=== PATIENT | female | born 1960 | race Caucasian/White ===

== ENCOUNTER 2017-04-14 13:07 | Emergency (ER) | payer OTHER ==
[~2017-04-14] VITALS: Ht 154.9 cm; Wt 47.7 kg
[2017-04-14 13:11] VITALS: TEMP 37.3; Ht 154.9 cm; Wt 47.7 kg
[2017-04-14] MEDS ORDERED: KETOROLAC TROMETHAMINE 30 MG/ML VIAL IV STA (13:57)
[2017-04-14] MEDS ORDERED: OMEP40CA41 PO (14:17)
[2017-04-14] MEDS ORDERED: METO50TA16 PO (14:17)
--- NOTE | 2017-04-14 14:53 | DIAGNOSTIC IMAGING REPORT ---
PELVIS/UNILATERAL HIP 2-3VIEWS CLINICAL HISTORY: 56 years-old Female presenting with Fall, rt HIP PAIN/CONTUSION. TECHNIQUE: Single frontal view of the pelvis and frontal and frog-leg lateral views the right hip were obtained. COMPARISON: None. FINDINGS: Bony pelvis intact. Symphysis and sacroiliac joints intact. Bilateral hip joints congruent. Specifically, no fracture of the right femoral neck. No subluxation. No degenerative change. Lower lumbar spine grossly normal. IMPRESSION: No acute osseous injury of the pelvis or right hip. Electronically signed by: Elias Perry M.D. 04/14/2017 2:51 PM Dictated Date/Time: 04/14/2017 2:50 PM
[2017-04-14] MEDS ORDERED: OXYCODONE IR HOME PACK PO STA (15:07)
[2017-04-14] MEDS ORDERED: OXYC1TAB3 PO (15:10)
--- NOTE | 2017-04-14 15:14 | EMERGENCY ROOM VISIT NOTE ---
ED Visit Note First contact with patient: 13:45 CHIEF COMPLAINT: "I'm in pain" HISTORY OF PRESENT ILLNESS: This 56-year-old female patient presents to the emergency department via ambulance complaining of pain in the right groin and right hip. The patient states on Friday, she slipped and fell on the ice. She states she did a split, and stretched the right groin. She states she then landed on the right hip. She describes the sensation in the right groin as "like a pulled muscle". She has been taking 400 mg of ibuprofen every 4-6 hours when having pain, but nothing consistently. The patient states she has been unable to ambulate, and her boyfriend has been carrying her to the bathroom. Early this morning, her pain began significantly worsening, and she felt that she needed to be seen in the emergency department. The patient discussed the pain now is the same as it has been for the past 3 days. She states the pain is intermittent, worse with moving. She describes it as a cramping sensation and rates that 8/10. The patient denies any prior hip fractures or injuries. She states that there are spasms in the muscle of her groin, and suspects that she tore the muscle in her right groin. The patient denies any head injury, loss of consciousness, confusion, dizziness, decreased sensation, paresthesias, back pain, urinary disturbances, or other associated symptoms. REVIEW OF SYSTEMS: A 10 system review of systems was performed with positives and pertinent negatives listed in the history of present illness. All other systems were reviewed and are negative. ALLERGIES: Penicillin MEDICATIONS: Metoprolol, omeprazole, albuterol, Symbicort PMH: Asthma, hypertension SOCIAL HISTORY: The patient lives locally with family. She admits to smoking one pack of cigarettes per day. She denies drug or alcohol use. PHYSICAL EXAM: VITALS: Vitals are noted on the nurse's note and reviewed by myself. Vital signs stable. GENERAL: This is a 56-year-old white female, in no acute distress, nondiaphoretic, well-developed well-nourished. SKIN: The skin was without rashes, erythema, edema, or bruising. There is no tenting of the skin. Capillary reflex less than 2 seconds. HEAD: Normocephalic atraumatic. EARS: External auditory canals clear, tympanic membranes pearly buck without erythema or effusion bilaterally. EYES: Pupils equal round and reactive to light and accommodation. Conjunctivae without injection, sclerae without icterus. Extraocular movements intact. NOSE: Patent, turbinates without inflammation or discharge. No sinus tenderness. MOUTH: Mucous membranes moist. Tonsils are not enlarged. Pharynx without erythema or exudate. Uvula midline. Airway patent. Tongue does not deviate. NECK: Supple without nuchal rigidity. No lymphadenopathy. No thyromegaly. Cervical spine is nontender. No JVD. HEART: Regular rate and rhythm without murmurs gallops or rubs. LUNGS: Wheezing noted in all lung dong. The patient does have a cough, which she states is chronic. No rales or rhonchi. No dullness to percussion. No retractions or accessory muscle use. ABDOMEN: Positive bowel sounds x 4. Normal tympanic percussion. Soft, nontender, without masses or organomegaly. Rosa sign negative. No guarding or rebound tenderness. MUSCULOSKELETAL: No muscle atrophy, erythema, or edema noted. The patient has significantly limited range of motion at the right hip. She is unable to externally rotate at the hip due to significant discomfort. She does some palpation of the hip, and a contusion overlying this joint. She has very severe tenderness in the right groin. There is no contusion or bruising noted in this area. Full range of motion without joint tenderness in all other extremities. No tenderness to palpation. Normal gait. Strength 5/5 throughout. NEURO: Patient was alert and oriented to person place and time. Normal sensation to light and sharp touch. Deep tendon reflexes 2+ throughout. No focal neurological deficits. RADIOLOGY: PELVIS/UNILATERAL HIP 2-3VIEWS CLINICAL HISTORY: 56 years-old Female presenting with Fall, rt HIP PAIN/CONTUSION. TECHNIQUE: Single frontal view of the pelvis and frontal and frog-leg lateral views the right hip were obtained. COMPARISON: None. FINDINGS: Bony pelvis intact. Symphysis and sacroiliac joints intact. Bilateral hip joints congruent. Specifically, no fracture of the right femoral neck. No subluxation. No degenerative change. Lower lumbar spine grossly normal. IMPRESSION: No acute osseous injury of the pelvis or right hip. Electronically signed by: Elias Perry M.D. 04/14/2017 2:51 PM Dictated Date/Time: 04/14/2017 2:50 PM EMERGENCY DEPARTMENT COURSE: The patient was seen and evaluated as above. An IV was established as the patient was in severe pain. She was given 30 mg Toradol IV and did note mild improvement in her symptoms. X-ray of the pelvis and unilateral right hip was performed and did not reveal any acute fractures or bony abnormalities. I had a discussion with the patient regarding pain management and assistance to help her get around her house. She states she feels that she will be able to ambulate with the assistance of crutches. She performed a trial in the emergency department, but was unsuccessful with ambulation did not feel comfortable avoiding all weight bearing on the right lower extremity. The patient states her boyfriend has been carrying her to the bathroom and anywhere she needs to go while in the house, and she feels comfortable continuing this practice until she is able to follow up with orthopedics. I did discuss this with the patient, and advised her that it is not ideal. I did offer her admission or possible placement at a rehabilitation facility. The patient declines, and states she would rather go home. The patient was provided with a home pack and prescription for pain medication. She did request a prescription for a muscle relaxer, so was given a home pack and prescription for Flexeril. She was encouraged to return the emergency Department for worsening symptoms. I did advise her to follow up with orthopedics this week for recheck and further evaluation of her symptoms. Discharge instructions reviewed, and the patient was discharged home in good condition. I attest that I have personally reviewed the patient's current medication list. Blood Pressure Screening: Patient was found to have a slightly elevated blood pressure due to circumstances. I do not believe that the patient requires hypertension monitoring. DIFFERENTIAL DIAGNOSIS: Hip fracture, pelvic fracture, contusion, sprain, strain , muscle or ligament tear, DVT, and others DIAGNOSIS: Right hip contusion, inguinal strain Current/Historical Medications Scheduled Cyclobenzaprine Hcl (Flexeril), 10 MG PO TID Metoprolol Tartrate (Lopressor) (Lopressor), 50 MG PO BID Omeprazole (Prilosec), 40 MG PO DAILY Scheduled PRN Oxycodone Ir (Roxicodone Ir), 1 TAB PO Q4-6H PRN for Pain Allergies Coded Allergies: Penicillins (Unverified Allergy, Unknown, ., 04/14/17) Vital Signs Date Time Temp Pulse Resp B/P (MAP) Pulse Ox O2 Delivery O2 Flow Rate FiO2 04/14/17 16:36 90 22 153/80 96 Room Air 04/14/17 14:37 97 18 142/90 96 Room Air 04/14/17 13:11 37.3 95 20 164/90 96 Room Air Medications Administered Medications (Trade) Dose Ordered Sig/Shellie Route Start Time Stop Time Status Last Admin Dose Admin Ketorolac Tromethamine (Toradol Inj) 30 mg NOW STAT IV 04/14/17 13:57 04/14/17 13:58 DC 04/14/17 14:13 30 MG Oxycodone HCl (Roxicodone Immediate Rel 5MG Home Pack) 1 homepack UD STAT PO 04/14/17 15:07 04/14/17 15:10 DC 04/14/17 16:34 1 HOMEPACK Cyclobenzaprine HCl (FLEXERIL 10MG Home Pack) 1 homepack UD ONCE PO 04/14/17 16:45 04/14/17 16:46 DC 04/14/17 16:34 1 HOMEPACK Departure Information Impression Primary Impression: Fall Additional Impressions: Strain of right inguinal muscle Contusion of right hip Dispostion Home / Self-Care Condition GOOD Prescriptions Cyclobenzaprine Hcl (FLEXERIL) 10 Mg Tab 10 MG PO TID, #15 TAB Prov: Denise Clifton PA-C 04/14/17 Oxycodone Ir (Roxicodone Ir) 5 Mg Tab 1 TAB PO Q4-6H Y for Pain, #6 TAB For Initial Treatment Prov: Denise Clifton PA-C 04/14/17 Referrals No Doctor, Assigned (PCP) Patient Instructions ED Contusion Hip, ED Strain Groin, My [facility] Additional Instructions You were seen in the emergency department today for right hip and groin pain. X -ray did not reveal any acute fracture. Oxycodone (OxyIR) 5mg: Take 1-2 pills every four hours as needed for breakthrough pain. Avoid alcohol, operating machinery or dangerous equipment, working on ladders or roofs, DRIVING, or situations where being under the influence may be dangerous. It is recommended to use an gjil-asm-yzplrok stool softener such as Colace, 100mg twice daily while taking this medication to avoid constipation. This medication is ONLY to be used for pain which is not controlled with OTC pain medication. Ibuprofen(Motrin, Advil) may be used for fever or pain. Use 600mg every six hours as needed. Take with food. Avoid using more than 2400mg in a 24 hour period. Do not use 2400mg per day for more than three consecutive days without physician direction. Prolonged inappropriate use can lead to stomach upset or ulcers. (AND/OR) Acetaminophen(Tylenol) may be used for fever or pain. Use 1000mg every six hours as needed. Avoid using more than 3000mg in a 24 hour period. You were given Flexeril to help with muscle spasms. Please take this medication as prescribed and do not exceed 30mg daily. Do not drive or operate any machinery while taking this medication, as it may make you sleepy. Ice compresses for 20 minutes at a time four times daily for 2-3 days. Use the crutches as instructed to avoid weight-bearing. You may begin bearing weight as tolerated. Rest and elevate your injury. Return to the ER immediately for any numbness, tingling, severe pain, extreme swelling in the extremity or as needed. Call [facility], [phone], tomorrow to arrange follow up for your injury in 1-2 days. Follow-up with your primary care physician in 2 to 3 days for a recheck of your current condition. Problem Qualifiers Primary Impression: Fall Encounter type: initial encounter Qualified Codes: W19.XXXA - Unspecified fall, initial encounter Additional Impressions: Strain of right inguinal muscle Encounter type: initial encounter Qualified Codes: S39.013A - Strain of muscle, fascia and tendon of pelvis, initial encounter Contusion of right hip Encounter type: initial encounter Qualified Codes: S70.01XA - Contusion of right hip, initial encounter
[2017-04-14] MEDS ORDERED: CYCL10TA6 PO (16:33)
[2017-04-14 16:36] VITALS: BP 153/80; PULSE 90; O2SAT 96
[2017-04-14] MEDS ORDERED: FLEXERIL HOME PACK 10 MG VIAL PO ONE (16:45)
== END 2017-04-14 16:54 | disposition home or self-care (01) ==
LOC: C.EDC 13:10
DX: S39.013A Strain of muscle, fascia and tendon of pelvis, initial encounter (principal); S70.01XA Contusion of right hip, initial encounter; W00.0XXA Fall on same level due to ice and snow, initial encounter

== ENCOUNTER 2021-08-19 21:47 | Observation (INO) ==
[2021-08-19] MEDS ORDERED: SODIUM CHLORIDE 0.9% 1000ML 250 ML IV ONE (22:16)
[2021-08-19] MEDS ORDERED: methylPREDNISolone 125 MG/2 ML VIAL IV STA (22:20)
[2021-08-19] MEDS ORDERED: ALBUT/IPRATROP 3MG/0.5MG NEB 3 ML VIAL NEB ONE (22:20)
[2021-08-19 22:31] LABS: Basophils # (auto) 0.02 K/uL (0-0.2); Basophils % (auto) 0.1 %; Eosinophils # (auto) 0.18 K/uL (0-0.5); Eosinophils % (auto) 1.3 %; Hematocrit (blood only) 46.8 % (37-47); Hemoglobin 15.8 g/dL (12.0-16.0); Immature Granulocytes # (auto) 0.09 K/uL (0.00-0.02); Immature Granulocytes % (auto) 0.6 %; Lymphocytes # (auto) 0.95 K/uL (1.2-3.4); Lymphocytes % (auto) 6.7 %; Mean Corpuscular Hgb Conc 33.8 g/dL (32-36); Mean Corpuscular Volume 94.7 fL (80-100); Mean Platelet Volume 9.4 fL (7.4-10.4); Monocytes % (auto) 5.6 %; Neutrophils # (auto) 12.18 K/uL (1.4-6.5); Neutrophils % (auto) 85.7 %; Platelet Count 307 K/uL (130-400); RDW Coefficient of Variation 12.6 % (11.5-14.5); RDW Standard Deviation 43.6 fL (36.4-46.3); Red Blood Count 4.94 M/uL (4.2-5.4); White Blood Count 14.22 K/uL (4.8-10.8)
[2021-08-19 22:36] LABS: iSTAT Creatinine 1.3 mg/dl (0.6-1.3); iSTAT Hemoglobin 16.3 g/dl (12.0-16.0); iSTAT Ionized Calcium 1.16 mmol/l (1.12-1.32); iSTAT Potassium 4.1 mmol/L (3.3-5.0)
[2021-08-19 22:39] LABS: iSTAT Arterial Blood Gas HCO3 21 meg/L (19-24); iSTAT Arterial Blood Gas pCO2 42 mmHg (35-46); iSTAT Arterial Blood Gas pO2 66 mmHg (80-95); iSTAT Carbon Dioxide 22 mmol/L (24-31)
[2021-08-19] MEDS ORDERED: OPTIRAY 320 125ml IV ONE (22:41)
[2021-08-19 22:42] LABS: Partial Thromboplastin Ratio 0.9; Partial Thromboplastin Time 23.7 Seconds (21.0-31.0); Prothrombin Time 10.3 Seconds (9.0-12.0)
[2021-08-19 22:45] LABS: Alanine Aminotransferase 26 U/L (7-52); Albumin Globulin Ratio 1.7 (0.9-2); Albumin Level 4.4 gm/dl (3.4-5.0); Alkaline Phosphatase 116 U/L (34-104); Anion Gap 13 (3-11); Aspartate Aminotransferase 55 U/L (13-39); BUN Creatinine Ratio 9.6 (10-20); Bilirubin,Total 0.5 mg/dl (0.2-1.0); Blood Urea Nitrogen 12 mg/dl (6-23); Calcium 8.9 mg/dl (8.5-10.1); Carbon Dioxide 20 mmol/L (21-32); Chloride 102 mmol/L (98-107); Est GFR (African American) 54.9 ml/min; Est GFR (Non-African American) 47.4 ml/min; Globulin 2.6 gm/dl (2.5-4.0); Glucose 201 mg/dl (70-99(Fasting)); Magnesium 1.7 mg/dl (1.7-2.4); Potassium 4.2 mmol/L (3.5-5.1); Sodium 135 mmol/L (136-145)
[2021-08-19 22:46] LABS: Troponin I High Sensitivity 6.4 pg/ml (0-14)
[2021-08-19] MEDS: SODIUM CHLORIDE 0.9% 1000ML 1,000 ML IV SCH (23:15)
[2021-08-20] MEDS ORDERED: ONDANSETRON INJ 2 MG/ML 2 ML VIAL IV STA ×2 (00:18→00:24)
[2021-08-20] MEDS ORDERED: HYDROmorphone INJ 0.5 MG/0.5 ML SYR IV STA (00:24)
--- NOTE | 2021-08-20 02:05 | History & Physical Report ---
Date of Service August 20, 2021 Assessment & Plan (1) Loss of consciousness for less than 30 minutes: Plan: Unclear as to what exactly happened with her loss of consciousness. She did undergo chest compressions by her , who reported that she had completely blacked out and was not responsive. He did not check a pulse before beginning CPR so unclear if she had a cardiopulmonary arrest, a pulmonary arrest, or became unresponsive due to some other event including unknown drug exposure She was out walking in the [place] the previous day, so we will check a Lyme test The patient will be admitted to telemetry for serial cardiac enzymes, serial EKG's, cardiac rhythm monitoring and a 2-D echocardiogram with Dopplers. (2) Respiratory arrest: Plan: Respiratory arrest/COPD- As above, unclear the exact process that took place prior to her arrival Continue Symbicort and as needed Duonebs every 4 hours while awake and every 2 hours when necessary. Add Pulmicort Respules 0.5 mg inhaled twice daily (3) COPD (chronic obstructive pulmonary disease): Plan: See above (4) Hypertension: Plan: Continue metoprolol 50 mg p.o. twice daily with hold parameters (5) Tobacco use disorder: Plan: Patient reports approximately 1 pack/day of cigarettes x40 years Also has daily use of marijuana by smoking Cessation counseling We will check a urine drug screen in the event that there was exposure to some unknown other drug element that may contribute to her symptoms (6) Alcohol abuse: Plan: Averages 4 beers daily during the week, and increases to 6-7 beers daily on the weekend Placed on AWSS protocol She reports having 1 beer today the day of her symptoms (7) Hypomagnesemia: Plan: Magnesium 1.7 upon admission Give magnesium sulfate 2 g IV Patient does have mildly prolonged QT interval on EKG, however, possible but unlikely episode torsades as cause of syncope (8) Hyperglycemia: Plan: Glucose 201 upon admission, with no history of diabetes mellitus Place on Accu-Cheks before meals and at bedtime with NovoLog coverage per scale Check hemoglobin A1c (9) Marijuana use, continuous: (10) Dehydration: Plan: Continue IV fluid rehydration (11) GERD (gastroesophageal reflux disease): Plan: Continue omeprazole/pantoprazole History of Present Illness Chief Complaint: The patient presents to the emergency department after an episode of loss of consciousness, preceded by loss of bladder control, and had chest compressions performed by her prior to calling 911 Primary Care Provider: Janeth Nette The patient is a 60-year-old female with a past medical history including COPD, hypertension, GERD, tobacco use disorder, daily alcohol use, daily marijuana use who presents to the emergency department as noted above. The patient reports that the morning before, she had gone for a walk, including outside in the [place], and did fine with that, later on in the afternoon that day, Friday, she became fatigued, but did become more energetic Friday evening. Yesterday morning, Friday, when she awoke she would report that she was tired, remained tired today. She also developed shortness of breath, has a chronic cough, and reportedly was sitting on her chair when she became aware that she was losing bladder control, and way down to the floor, and lost consciousness, at which time her began CPR. She reportedly did come to at home, and was brought to the ED for assessment of a respiratory arrest. Allergies Allergy/AdvReac Type Severity Reaction Status Date / Time Penicillins Allergy Unknown . Unverified 08/19/21 22:34 Home Medications Medication Instructions Recorded Confirmed Type budesonide-formoterol HFA 160 2 puff INHALATION BID 08/19/21 08/19/21 History mcg-4.5 mcg/actuation aerosol inhaler (Symbicort) glycopyrrolate 9 mcg-formoterol 2 puff INHALATION DAILY 08/19/21 08/19/21 History 4.8 mcg HFA aerosol inhaler (Bevespi Aerosphere) ipratropium 0.5 mg-albuterol 3 mg 3 ml INHALATION QID PRN 08/19/21 08/19/21 History (2.5 mg base)/3 mL nebulization soln metoprolol tartrate 50 mg tablet 50 mg PO BID 08/19/21 08/19/21 History omeprazole 40 mg capsule,delayed 40 mg PO DAILY 08/19/21 08/19/21 History release Past Med/Surg History Medical History (Updated 08/20/21 @ 03:02 by Yuan Escamilla MD) Alcohol abuse COPD (chronic obstructive pulmonary disease) GERD (gastroesophageal reflux disease) Hypertension Marijuana use, continuous Tobacco use disorder Social History Smoking Status: Current every day smoker Tobacco Type: Cigarettes Feels Safe at Home: Yes Review of Systems Review of Systems: The patient denies chest pain, palpitations, lower extremity swelling, sore throat, fevers, chills, sweats, weight change, fatigue, nausea, vomiting, diarrhea , constipation, abdominal pain, pelvic pain, blood in urine or stool, dysuria, urinary frequency or urgency, lightheadedness, dizziness, headache, rash, abnormal bruising or bleeding, imbalance, focal weakness, numbness or tingling in arms or legs, generalized arthralgias or myalgias, back or neck pain, or night sweats. The review of systems is otherwise negative other than for that already noted above, and at least 10 systems have been reviewed. Physical Exam Physical Exam: The patient is awake, alert and oriented 3, well developed and well nourished, normocephalic and atraumatic, lying in bed and in no acute distress. HEENT--PERRL, EOMI, mucous membranes and oropharynx very dry. Neck--supple. No JVD. No bruits. Thyroid normal, trachea midline, no adenopathy. Heart--normal S1 and S2. No murmurs, rubs or gallops. Lungs--clear bilaterally, no respiratory distress, no accessory muscle use. Abdomen--normal bowel sounds and soft. Nontender. Nondistended, no hernias or masses, no organomegaly. Extremities--no cyanosis or clubbing. No edema. Dermatologic--normal skin turgor, normal color, no abnormal lymph nodes, no rash. Neurologic--cranial nerves II through XII grossly intact. Rheumatologic--normal range of motion. Psychiatric--normal affect. Results & Data Results & Data ([facility]) Vital Signs (Past 12 Hours) Vital Signs Temp Pulse Pulse Resp BP Pulse Ox 08/20/21 01:46 106 H 23 181/100 H 92 08/20/21 00:15 98 H 22 145/75 H 93 08/19/21 23:00 90 21 134/80 100 08/19/21 22:48 94 H 19 92 08/19/21 22:21 97 H 08/19/21 22:04 36.3 C L 99 H 22 168/93 H 90 Laboratory Results Laboratory Results WBC 14.22 K/uL (4.8-10.8) H 08/19/21 22:10 RBC 4.94 M/uL (4.2-5.4) 08/19/21 22:10 Hgb 15.8 g/dL (12.0-16.0) 08/19/21 22:10 POC Hgb 16.3 g/dl (12.0-16.0) H 08/19/21 22:24 Hct 46.8 % (37-47) 08/19/21 22:10 POC Hct 48 % (37-47) H 08/19/21 22:24 MCV 94.7 fL (80-100) 08/19/21 22:10 MCH 32.0 pg (25-34) 08/19/21 22:10 MCHC 33.8 g/dL (32-36) 08/19/21 22:10 RDW Std Deviation 43.6 fL (36.4-46.3) 08/19/21 22:10 RDW Coeff of Hari 12.6 % (11.5-14.5) 08/19/21 22:10 Plt Count 307 K/uL (130-400) 08/19/21 22:10 MPV 9.4 fL (7.4-10.4) 08/19/21 22:10 Immature Gran % (Auto) 0.6 % 08/19/21 22:10 Neut % (Auto) 85.7 % 08/19/21 22:10 Lymph % (Auto) 6.7 % 08/19/21 22:10 Calvert % (Auto) 5.6 % 08/19/21 22:10 Eos % (Auto) 1.3 % 08/19/21 22:10 Baso % (Auto) 0.1 % 08/19/21 22:10 Neut # (Auto) 12.18 K/uL (1.4-6.5) H 08/19/21 22:10 Lymph # (Auto) 0.95 K/uL (1.2-3.4) L 08/19/21 22:10 Calvert # (Auto) 0.80 K/uL (0.11-0.59) H 08/19/21 22:10 Eos # (Auto) 0.18 K/uL (0-0.5) 08/19/21 22:10 Baso # (Auto) 0.02 K/uL (0-0.2) 08/19/21 22:10 Immature Gran # (Auto) 0.09 K/uL (0.00-0.02) H 08/19/21 22:10 PT 10.3 Seconds (9.0-12.0) 08/19/21 22:10 INR 1.0 (0.9-1.1) 08/19/21 22:10 APTT 23.7 Seconds (21.0-31.0) 08/19/21 22:10 PTT Ratio 0.9 08/19/21 22:10 POC pH 7.30 (7.35-7.45) L 08/19/21 22:26 POC pCO2 42 mmHg (35-46) 08/19/21: POC pO2 66 mmHg (80-95) L 08/19/21: POC HCO3 21 barrett/L (19-24) 08/19/21: POC Total CO2 22 mmol/L (24-31) L 08/19/21: POC Base Excess -6.0 barrett/L (-9-1.8) 08/19/21: POC ABG O2 Sat 91.0 % (90-95) 08/19/21 22:26 POC Sodium 137 mmol/L (135-144) 08/19/21 22:24 Sodium 135 mmol/L (136-145) L 08/19/21 22:10 POC Potassium 4.1 mmol/L (3.3-5.0) 08/19/21 22:24 Potassium 4.2 mmol/L (3.5-5.1) 08/19/21 22:10 POC Chloride 101 mmol/L (101-112) 08/19/21 22:24 Chloride 102 mmol/L (98-107) 08/19/21 22:10 Carbon Dioxide 20 mmol/L (21-32) L 08/19/21 22:10 POC Total CO2 21 mmol/L (24-31) L 08/19/21 22:24 Anion Gap 13 (3-11) H 08/19/21 22:10 POC Anion Gap 19.0 mmol/L (16-25) 08/19/21 22:24 POC BUN 12 mg/dl (7-18) 08/19/21 22:24 BUN 12 mg/dl (6-23) 08/19/21 22:10 Creatinine 1.25 mg/dl (0.6-1.2) H 08/19/21 22:10 POC Creatinine 1.3 mg/dl (0.6-1.3) 08/19/21 22:24 Est Cr Clr Drug Dosing Not Reportable 08/19/21 22:10 Est GFR ( Amer) 54.9 ml/min 08/19/21 22:10 Est GFR (Non-Af Amer) 47.4 ml/min 08/19/21 22:10 BUN/Creatinine Ratio 9.6 (10-20) L 08/19/21 22:10 Glucose 201 mg/dl (70-99(Fasting)) H 08/19/21 22:10 POC Glucose (other) 209 mg/dl (70-99) H 08/19/21 22:24 Calcium 8.9 mg/dl (8.5-10.1) 08/19/21 22:10 POC Ioniz Calcium Pebbles 1.16 mmol/l (1.12-1.32) 08/19/21 22:24 Magnesium 1.7 mg/dl (1.7-2.4) 08/19/21 22:10 Total Bilirubin 0.5 mg/dl (0.2-1.0) 08/19/21 22:10 AST 55 U/L (13-39) H 08/19/21 22:10 ALT 26 U/L (7-52) 08/19/21 22:10 Alkaline Phosphatase 116 U/L (34-104) H 08/19/21 22:10 Troponin I High Sens 6.4 pg/ml (0-14) 08/19/21 22:10 Total Protein 7.0 gm/dl (6.0-8.3) 08/19/21 22:10 Albumin 4.4 gm/dl (3.4-5.0) 08/19/21 22:10 Globulin 2.6 gm/dl (2.5-4.0) 08/19/21 22:10 Albumin/Globulin Ratio 1.7 (0.9-2) 08/19/21 22:10 SARS-CoV-2, RNA, NAAT NEGATIVE (NEGATIVE) 08/19/21 22:23 Diagnostic Findings [facility] Patient: VIVIENNE DON (Female) : 64 Status: ER Date: 08/19/21 22:52 Room #: History: PT. REPORTS SOB, CHEST DISCOMFORT EVAL FOR PE OPTI 320 120 CC PT. IS ON THE MONITOR BROUGHT BY NURSES; UNABLE TO REMOVE LEADS FOR SCAN Slices: [phone] Priors: Steven: Kaya Dahl @ [phone] Exams: CTA CHEST Contrast: IV Amt: OPTI 320 120 CC Accession Numbers: [id number] Referring Physician: REFERRED SELF Preliminary Findings Only See Final Report For Complete Findings CTA CHEST: No PE. Unremarkable appearance of the heart and aorta. As emphysematous changes. No evidence of pneumonia. Scarring at the right apex. Pulmonary nodule in the right lower lobe measuring 5 mm (image [id number]). Radiologist: Yg Ewing MD Study ready at 22:57 and initial results transmitted at 23:47 *This report constitutes a preliminary interpretation only. Non-acute findings felt to be unrelated to the clinical presentation may not be discussed in this report. The study will be interpreted and a final report will be generated by the local Radiologist the following shift. To reach the [facility] radiology department call [phone]. If a discrepancy is found between the preliminary and final interpretations of this study, please notify us via our Client Portal at [email or web address], under QA Exams. You can also fax this report with a description of the discrepancy, or include the final report, to our daytime fax number [phone]. If faxing, please indicate the severity of discrepancy using one of the following categories: [ ] 1 - Agree/Informational [ ] 2 - Unlikely to Affect Management [ ] 3 - Possible Eventual Change of Management [ ] 4 - Probable Immediate Change of Management For all other patient related information, please fax us at [phone]. [id number] Code Status & VTE Plan Code Status Full code VTE Prophylaxis Plan VTE Prophylaxis will be ordered: Yes PG Care Time/CCT Total # of Minutes Spent Total Time Spent with Patient: Total time spent is greater than 50% in coordination of care (as documented) at patient's floor/unit and/or counseling patient: Coding Level of Care Code 36354 Initial Inpt Care Lvl 3 Diagnoses COPD (chronic obstructive pulmonary disease) J44.9 GERD (gastroesophageal reflux disease) K21.9 Hypertension I10 Tobacco use disorder F17.200 Alcohol abuse F10.10 Hypomagnesemia E83.42 Loss of consciousness for less than 30 minutes Hyperglycemia R73.9 Marijuana use, continuous F12.90 Dehydration E86.0 Respiratory arrest R09.2
[2021-08-20] MEDS: MAGNESIUM SULFATE / D5W 1 GM/100 ML BAG IV SCH ×2 (02:17→04:12)
[2021-08-20] MEDS ORDERED: LORazepam 1 MG TAB PO PRN (03:04)
[2021-08-20 04:35] LABS: Lyme Ab IgG w/WB Rflx Negative (Negative); Lyme Ab IgM w/WB Rflx Negative (Negative)
[2021-08-20] MEDS: SODIUM CHLORIDE 0.9% 1000ML 1,000 ML IV SCH ×2 (04:59→13:08)
[2021-08-20] MEDS ORDERED: CARBOHYDRATES FOR HYPOGLYCEMIA PO PRN (06:29)
[2021-08-20] MEDS ORDERED: GLUCOSE 40% GEL 15 GM TUBE PO PRN (06:29)
[2021-08-20] MEDS ORDERED: ACETAMINOPHEN 325 MG TAB PO PRN (06:29)
[2021-08-20] MEDS ORDERED: DEXTROSE 50% 50 ML SYRINGE IV PRN (06:29)
[2021-08-20] MEDS ORDERED: GLUCOSE 10 TABS/TUBE PO PRN (06:29)
[2021-08-20] MEDS ORDERED: ONDANSETRON INJ 2 MG/ML 2 ML VIAL IV PRN (06:29)
[2021-08-20] MEDS ORDERED: GLUCAGON FOR INJ 1 MG VIAL SQ PRN (06:29)
[2021-08-20 06:30] LABS: Appearance Urine Clear (Clear); Bacteria Urine Automated Negative (Negative); Bilirubin Urine Negative (Negative); Blood Urine Trace (Negative); Color Urine Yellow; Epithelial Cell Urine Auto 20-30 /lpf (0-5); Glucose Urine UA 1+ (Negative); Ketones Urine Negative (Negative); Leukocyte Esterase Urine Negative (Negative); Nitrite Urine Negative (Negative); Protein Urine Trace (Negative); RBC Urine Automated 0-4 /hpf (0-4); Specific Gravity Urine 1.026 (1.000-1.030); Urobilinogen Urine Negative (Negative); pH Urine 6.5 (4.5-7.5)
[2021-08-20 06:49] LABS: Amphetamines+Metham, Urine Neg (Neg); Barbiturates, Urine Neg (Neg); Benzodiazepine, Urine Neg (Neg); Cocaine, Urine Neg (Neg); MDMA (Ecstacy), Urine Neg (Neg); Methadone, Urine Neg (Neg); Opiate, Urine Neg (Neg); Phencyclidine, Urine Neg (Neg)
[2021-08-20] MEDS ORDERED: PNEUMOCOCCAL POLYSACCHARIDES 25 MCG/0.5 ML VIAL/SYR IM ONE (06:53)
[2021-08-20] MEDS: BUDESONIDE 0.5 MG/2 ML VIAL (PULMICORT) NEB SCH ×2 (07:47→19:19)
[2021-08-20] MEDS: ALBUT/IPRATROP 3MG/0.5MG NEB 3 ML VIAL INH PRN ×2 (07:50→11:19)
--- NOTE | 2021-08-20 08:05 | XRay Report ---
XR chest 1V portable HISTORY: Dyspnea COMPARISON: None. FINDINGS: Emphysema. No pneumothorax. Interstitial thickening at the lung bases is likely due to vasc ular crowding from the hyperexpanded lungs. No focal lung consolidations to suggest pneumonia. The he art is normal in size. No evidence for pulmonary edema. IMPRESSION: Emphysema. Otherwise, no acute process within the chest. ACT 112: Negative or not required by law. Electronically signed by: Celio Palma M.D. 08/20/2021 8:04 AM
[2021-08-20] MEDS ORDERED: AZITHROMYCIN 500 MG in DEXTROSE 5% 250 ML IV SCH (09:00)
[2021-08-20] MEDS: METOPROLOL TARTRATE 50 MG TAB PO SCH ×2 (09:12→20:24)
[2021-08-20] MEDS: PANTOprazole 40 MG TAB PO SCH (09:21)
[2021-08-20] MEDS: INSULIN ASPART PER UNIT SC SCH ×3 (09:27→18:28)
[2021-08-20] MEDS: FLUTICASONE/VILANTEROL 200/25MCG 14 PUFFS/INHALER INH SCH ×2 (10:02→10:03)
[2021-08-20] MEDS: UMECLIDINIUM/VILANTEROL 62.5/25MCG 7 PUFFS/INHALER INH SCH (10:04)
--- NOTE | 2021-08-20 10:06 | CT Scan Report ---
CHEST CTA for PULMONARY ARTERIES CT DOSE: 248.80 mGy.cm HISTORY: Dyspnea TECHNIQUE: Multiaxial CT images of the chest were performed following the intravenous administration of contrast to evaluate the pulmonary arteries. Maximal intensity projection images were also obtaine d. A dose lowering technique was utilized adhering to the principles of ALARA. COMPARISON STUDY: None. FINDINGS: Limited views the upper abdomen demonstrate normal liver, spleen, and adrenal glands. The t hyroid gland enhances normally. No mediastinal or hilar lymphadenopathy. The heart is normal in size. No pleural or pericardial effusions. Mild calcified plaque within the normal caliber thoracic aorta. No evidence for an aortic dissection. No filling defects within the pulmonary arteries to suggest a pulmonary embolus. A few old, healed bilateral rib fractures. No acute fractures identified. No pneum othorax. No pleural effusions. Mild bronchial wall thickening. Partial opacification of the bilateral lower lobe segmental bronchi most pronounced on the right. There is moderate to severe emphysema. A 4 mm nodule within the left lower lobe on image 73. A 7 mm nodular density at the base of the left lo wer lobe on image 59. A 4 mm nodule within the left lower lobe on image 115. A 5 mm groundglass nodul e within the left lower lobe on image 136. Focal irregular density within the right lung apex on imag e 227 measuring approximately 1 cm. A 4 mm nodule within the right lower lobe on image 48. A 5 mm nod ule within the right lower lobe on image 102. IMPRESSION: 1. No evidence for pulmonary embolus. 2. Emphysema. 3. A 1 cm focal irregular density within the right lung apex. This could represent scarring. However, [address] follow-up recommended to exclude the possibility of a pulmonary lesion. 4. Additional scattered subcentimeter pulmonary nodules as described above with the largest in the le ft lower lobe measuring 7 mm. These also require follow-up to ensure stability. ACT 112: Positive. There are findings on this exam that require communication between the performing entity and the patient following Patient Test Result Information Act ([place] Act 112) guidelines. Electronically signed by: Celio Palma M.D. 08/20/2021 10:04 AM
[2021-08-20] MEDS: THIAMINE HCL 100 MG TAB PO SCH (11:34)
[2021-08-20] MEDS: FOLIC ACID 1 MG TAB PO SCH (11:34)
--- NOTE | 2021-08-20 12:20 | XCELERA ---
[id number]
[2021-08-20] MEDS ORDERED: BEER 1 CAN PO PRN (18:46)
--- NOTE | 2021-08-20 18:59 | Communication Note ---
Date of Service: August 20, 2021 Patient was admitted the same day therefore not be billing for this encounter. Patient was seen, history taken and examined. Imaging, labs and plan reviewed. Patient has no recollection of what happened to bring her to the emergency room. She reports feeling short of breath for most of the yesterday and thinks her COPD was getting bad. She reports drinking 4 beers daily however she is gone many days without drinking beer without any signs or symptoms of withdrawal. She reports having a chronic tremor all the time and this is not related to withdrawal. She declines benzodiazepines to help her get through withdrawal and prefers to drink beer if this is necessary at all although she does not think this will be necessary. O/E Alert and orientated, mild bilateral right greater than left resting tremor, HS 1+2, no murmurs A/P See H&P from earlier today Suspected COPD exacerbation -Solu-Medrol 60 mg IV given in ER, will continue this 40 mg IV twice daily. DuoNebs 4 times daily. Azithromycin 500 mg IV given this morning, will switch to p.o. for further 2 doses. Alcohol withdrawal -denies any current anxiety, GI upset, palpitations, headache or hallucinations She reports her chronic tremor no worse than usual. Switch diabetic and heart healthy diet to regular. Only required 2 units of insulin today. Will discontinue BSG checks and further insulin. TTE -left ventricle hyperdynamic, mild concentric left ventricular hypertrophy, grade 1 diastolic dysfunction, left atrium is mildly dilated, aortic valve sclerosis mild without significant aortic valvular stenosis
[2021-08-20] MEDS: ALBUT/IPRATROP 3MG/0.5MG NEB 3 ML VIAL NEB SCH (19:19)
--- NOTE | 2021-08-20 20:08 | Emergency Department Note ---
ED Provider Note CHIEF COMPLAINT: Respiratory arrest, CPR HISTORY OF PRESENT ILLNESS: This [] patient presents to the emergency department [] REVIEW OF SYSTEMS: A review of systems was performed with positives and pertinent negatives listed in the history of present illness. 10 systems were reviewed and are otherwise negative. ALLERGIES: see below MEDICATIONS: see below PMH: see below SOCIAL HISTORY: see below DDx: [] PHYSICAL EXAM: Vital signs reviewed. General: Well-appearing, in no significant distress. HEENT: No scleral icterus, PERRLA, neck supple. Atraumatic. Cardiovascular: Regular rate and rhythm, no extra sounds. Pulmonary: Clear to auscultation bilaterally, normal work of breathing. Abdomen: Soft, nontender, nondistended, positive bowel sounds. Musculoskeletal: Atraumatic, no peripheral edema. Neurologic: Patient awake alert and oriented x 3, speech is clear Skin: Warm, dry, no rash EMERGENCY DEPARTMENT COURSE/MDM: [] MONITORING: An order for cardiac monitoring was placed and the patient is noted to be in a [] at [] beats per minute. RADIOLOGY: EKG: DISPOSITION: Past Med/Surg History Medical History (Updated 08/20/21 @ 03:02 by Yuan Escamilla MD) Alcohol abuse COPD (chronic obstructive pulmonary disease) GERD (gastroesophageal reflux disease) Hypertension Marijuana use, continuous Tobacco use disorder Social History Smoking Status: Current every day smoker Tobacco Type: Cigarettes Hx Alcohol Use: Yes Hx Substance Use: No Preferred Language: Grenadian Communication Ability: Effective River Driver Required: No Beliefs That Will Affect Care: None Current Living Situation: Family Feels Safe at Home: Yes Assistive Devices: None Allergies Allergies Allergy/AdvReac Type Severity Reaction Status Date / Time Penicillins Allergy Unknown . Unverified 08/19/21 22:34 Home Meds Home Medications Medication Instructions Recorded Confirmed budesonide-formoterol HFA 160 2 puff INHALATION BID 08/19/21 08/19/21 mcg-4.5 mcg/actuation aerosol inhaler (Symbicort) glycopyrrolate 9 mcg-formoterol 2 puff INHALATION DAILY 08/19/21 08/19/21 4.8 mcg HFA aerosol inhaler (Bevespi Aerosphere) ipratropium 0.5 mg-albuterol 3 mg 3 ml INHALATION QID PRN 08/19/21 08/19/21 (2.5 mg base)/3 mL nebulization soln metoprolol tartrate 50 mg tablet 50 mg PO BID 08/19/21 08/19/21 omeprazole 40 mg capsule,delayed 40 mg PO DAILY 08/19/21 08/19/21 release Results & Data (ED) Vital Signs Vital Signs - 24 hr 08/19/21 21:55 08/19/21 22:04 08/19/21 22:13 Temperature 36.3 C L Temperature Source Oral Pulse Rate Pulse Rate [Finger] 99 H Pulse Rhythm Pulse Rhythm [Finger] Regular Pulse Strength [Finger] Normal Respiratory Rate 22 Respiratory Effort / Characteristics Non-Labored Non-Labored Respiratory Depth Normal Normal Respiratory Pattern Regular Blood Pressure [Right Arm] 168/93 H Blood Pressure Mean [Right Arm] 118 Blood Pressure Position [Right Arm] Lying Pulse Oximetry 90 Oxygen Delivery Method Room Air Room Air Fraction of Inspired Oxygen Sepsis New/Unexplained Change in Mental Status No Sepsis Action Taken by Nursing No Action Required 08/19/21 22:21 08/19/21 22:48 08/19/21 23:00 Temperature Temperature Source Pulse Rate 97 H Pulse Rate [Finger] 94 H 90 Pulse Rhythm Regular Pulse Rhythm [Finger] Regular Pulse Strength [Finger] Normal Respiratory Rate 19 21 Respiratory Effort / Characteristics Non-Labored Spontaneous Non-Labored Respiratory Depth Normal Respiratory Pattern Blood Pressure [Right Arm] 134/80 Blood Pressure Mean [Right Arm] 98 Blood Pressure Position [Right Arm] Sitting Pulse Oximetry 92 100 Oxygen Delivery Method Room Air Room Air Nebulizer Fraction of Inspired Oxygen 21 Sepsis New/Unexplained Change in Mental Status Sepsis Action Taken by Nursing 08/20/21 00:15 08/20/21 01:46 Temperature Temperature Source Pulse Rate Pulse Rate [Finger] 98 H 106 H Pulse Rhythm Pulse Rhythm [Finger] Regular Regular Pulse Strength [Finger] Normal Normal Respiratory Rate 22 23 Respiratory Effort / Characteristics Non-Labored Spontaneous Non-Labored Spontaneous Respiratory Depth Normal Normal Respiratory Pattern Regular Blood Pressure [Right Arm] 145/75 H 181/100 H Blood Pressure Mean [Right Arm] 98 127 Blood Pressure Position [Right Arm] Lying Sitting Pulse Oximetry 93 92 Oxygen Delivery Method Room Air Room Air Fraction of Inspired Oxygen Sepsis New/Unexplained Change in Mental Status Sepsis Action Taken by Nursing Laboratory Data Result diagrams: 08/19/21 22:10 08/19/21 22:10 Lab Results 08/19/21 08/19/21 08/19/21 Range/Units 22:10 22:10 22:10 WBC 14.22 H (4.8-10.8) K/uL RBC 4.94 (4.2-5.4) M/uL Hgb 15.8 (12.0-16.0) g/dL POC Hgb (12.0-16.0) g/dl Hct 46.8 (37-47) % POC Hct (37-47) % MCV 94.7 (80-100) fL MCH 32.0 (25-34) pg MCHC 33.8 (32-36) g/dL RDW Std Deviation 43.6 (36.4-46.3) fL RDW Coeff of Hari 12.6 (11.5-14.5) % Plt Count 307 (130-400) K/uL MPV 9.4 (7.4-10.4) fL Immature Gran % (Auto) 0.6 % Neut % (Auto) 85.7 % Lymph % (Auto) 6.7 % [place] % (Auto) 5.6 % Eos % (Auto) 1.3 % Baso % (Auto) 0.1 % Neut # (Auto) 12.18 H (1.4-6.5) K/uL Lymph # (Auto) 0.95 L (1.2-3.4) K/uL [place] # (Auto) 0.80 H (0.11-0.59) K/uL Eos # (Auto) 0.18 (0-0.5) K/uL Baso # (Auto) 0.02 (0-0.2) K/uL Immature Gran # (Auto) 0.09 H (0.00-0.02) K/uL PT 10.3 (9.0-12.0) Seconds INR 1.0 (0.9-1.1) APTT 23.7 (21.0-31.0) Seconds PTT Ratio 0.9 POC pH (7.35-7.45) POC pCO2 (35-46) mmHg POC pO2 (80-95) mmHg POC HCO3 (19-24) barrett/L POC Base Excess (-9-1.8) barrett/L POC ABG O2 Sat (90-95) % POC Sodium (135-144) mmol/L Sodium 135 L (136-145) mmol/L POC Potassium (3.3-5.0) mmol/L Potassium 4.2 (3.5-5.1) mmol/L POC Chloride (101-112) mmol/L Chloride 102 (98-107) mmol/L Carbon Dioxide 20 L (21-32) mmol/L POC Total CO2 (24-31) mmol/L Anion Gap 13 H (3-11) POC Anion Gap (16-25) mmol/L POC BUN (7-18) mg/dl BUN 12 (6-23) mg/dl Creatinine 1.25 H (0.6-1.2) mg/dl POC Creatinine (0.6-1.3) mg/dl Est Cr Clr Drug Dosing Not Reportable Est GFR ( Amer) 54.9 ml/min Est GFR (Non-Af Amer) 47.4 ml/min BUN/Creatinine Ratio 9.6 L (10-20) Glucose 201 H (70-99(Fasting)) mg/dl POC Glucose (other) (70-99) mg/dl Calcium 8.9 (8.5-10.1) mg/dl POC Ioniz Calcium Pebbles (1.12-1.32) mmol/l Magnesium 1.7 (1.7-2.4) mg/dl Total Bilirubin 0.5 (0.2-1.0) mg/dl AST 55 H (13-39) U/L ALT 26 (7-52) U/L Alkaline Phosphatase 116 H (34-104) U/L Troponin I High Sens 6.4 (0-14) pg/ml Total Protein 7.0 (6.0-8.3) gm/dl Albumin 4.4 (3.4-5.0) gm/dl Globulin 2.6 (2.5-4.0) gm/dl Albumin/Globulin Ratio 1.7 (0.9-2) SARS-CoV-2, RNA, NAAT (NEGATIVE) 08/19/21 08/19/21 08/19/21 Range/Units 22:23 22:24 22:26 WBC (4.8-10.8) K/uL RBC (4.2-5.4) M/uL Hgb (12.0-16.0) g/dL POC Hgb 16.3 H (12.0-16.0) g/dl Hct (37-47) % POC Hct 48 H (37-47) % MCV (80-100) fL MCH (25-34) pg MCHC (32-36) g/dL RDW Std Deviation (36.4-46.3) fL RDW Coeff of Hari (11.5-14.5) % Plt Count (130-400) K/uL MPV (7.4-10.4) fL Immature Gran % (Auto) % Neut % (Auto) % Lymph % (Auto) % [place] % (Auto) % Eos % (Auto) % Baso % (Auto) % Neut # (Auto) (1.4-6.5) K/uL Lymph # (Auto) (1.2-3.4) K/uL [place] # (Auto) (0.11-0.59) K/uL Eos # (Auto) (0-0.5) K/uL Baso # (Auto) (0-0.2) K/uL Immature Gran # (Auto) (0.00-0.02) K/uL PT (9.0-12.0) Seconds INR (0.9-1.1) APTT (21.0-31.0) Seconds PTT Ratio POC pH 7.30 L (7.35-7.45) POC pCO2 42 (35-46) mmHg POC pO2 66 L (80-95) mmHg POC HCO3 21 (19-24) barrett/L POC Base Excess -6.0 (-9-1.8) barrett/L POC ABG O2 Sat 91.0 (90-95) % POC Sodium 137 (135-144) mmol/L Sodium (136-145) mmol/L POC Potassium 4.1 (3.3-5.0) mmol/L Potassium (3.5-5.1) mmol/L POC Chloride 101 (101-112) mmol/L Chloride (98-107) mmol/L Carbon Dioxide (21-32) mmol/L POC Total CO2 21 L 22 L (24-31) mmol/L Anion Gap (3-11) POC Anion Gap 19.0 (16-25) mmol/L POC BUN 12 (7-18) mg/dl BUN (6-23) mg/dl Creatinine (0.6-1.2) mg/dl POC Creatinine 1.3 (0.6-1.3) mg/dl Est Cr Clr Drug Dosing Est GFR ( Amer) ml/min Est GFR (Non-Af Amer) ml/min BUN/Creatinine Ratio (10-20) Glucose (70-99(Fasting)) mg/dl POC Glucose (other) 209 H (70-99) mg/dl Calcium (8.5-10.1) mg/dl POC Ioniz Calcium Pebbles 1.16 (1.12-1.32) mmol/l Magnesium (1.7-2.4) mg/dl Total Bilirubin (0.2-1.0) mg/dl AST (13-39) U/L ALT (7-52) U/L Alkaline Phosphatase (34-104) U/L Troponin I High Sens (0-14) pg/ml Total Protein (6.0-8.3) gm/dl Albumin (3.4-5.0) gm/dl Globulin (2.5-4.0) gm/dl Albumin/Globulin Ratio (0.9-2) SARS-CoV-2, RNA, NAAT NEGATIVE (NEGATIVE) Administered Medications Albuterol (Albut/Ipratrop 3mg/0.5mg Neb 3 Ml Vial) 3 ml INH QID PRN; Protocol PRN Reason: Shortness Of Breath Or Wheezin Stop: 09/19/21 06:28 Last Admin: 08/20/21 11:19 Dose: 3 ml Documented by: [id number] Admin: 08/20/21 07:50 Dose: 3 ml Documented by: [id number] Albuterol (Albut/Ipratrop 3mg/0.5mg Neb 3 Ml Vial) 3 ml NEB QIDR RICKY; Protocol Stop: 09/19/21 18:59 Last Admin: 08/20/21 19:19 Dose: 3 ml Documented by: [id number] Budesonide (Budesonide 0.5 Mg/2 Ml Vial (Pulmicort)) 0.5 mg NEB BIDR [facility] Stop: 09/19/21 06:59 Last Admin: 08/20/21 19:19 Dose: 0.5 mg Documented by: [id number] Admin: 08/20/21 07:47 Dose: 0.5 mg Documented by: [id number] Fluticasone/Vilanterol (Fluticasone/Vilanterol 200/25mcg 14 Puffs/Inhaler) 1 puffs INH DAILY RICKY Stop: 09/19/21 08:59 Last Admin: 08/20/21 10:03 Dose: 1 puffs Documented by: [id number] Admin: 08/20/21 10:02 Dose: 1 puffs Documented by: [id number] Folic Acid (Folic Acid 1 Mg Tab) 1 mg PO QAM RICKY Stop: 09/19/21 08:59 Last Admin: 08/20/21 11:34 Dose: 1 mg Documented by: [id number] Metoprolol Tartrate (Metoprolol Tartrate 50 Mg Tab) 50 mg PO BID RICKY Stop: 09/19/21 08:59 Last Admin: 08/20/21 09:12 Dose: 50 mg Documented by: [id number] Pantoprazole Sodium (Pantoprazole 40 Mg Tab) 40 mg PO DAILY RICKY Stop: 09/19/21 08:59 Last Admin: 08/20/21 09:21 Dose: 40 mg Documented by: [id number] Thiamine HCl (Thiamine Hcl 100 Mg Tab) 100 mg PO QAM RICKY Stop: 09/19/21 08:59 Last Admin: 08/20/21 11:34 Dose: 100 mg Documented by: [id number] Umeclidinium/Vilanterol (Umeclidinium/Vilanterol 62.5/25mcg 7 Puffs/Inhaler) 1 puffs INH DAILY RICKY Stop: 09/19/21 08:59 Last Admin: 08/20/21 10:04 Dose: 1 puffs Documented by: [id number] Discontinued Medications Albuterol (Albut/Ipratrop 3mg/0.5mg Neb 3 Ml Vial) 12 ml NEB ONE ONE; Protocol Stop: 08/19/21 22:21 Last Admin: 08/19/21 22:48 Dose: 12 ml Documented by: [id number] Hydromorphone HCl (Hydromorphone Inj 0.5 Mg/0.5 Ml Syr) 0.5 mg IV NOW STA Stop: 08/20/21 00:25 Last Admin: 08/20/21 01:26 Dose: Not Given Documented by: [id number] Sodium Chloride (Nss 1000ml) 1,000 mls @ 125 mls/hr IV .Q8H RICKY Stop: 09/18/21 22:29 Last Infusion: 08/20/21 18:47 Dose: 0 mls/hr Documented by: [id number] Admin: 08/20/21 13:08 Dose: 125 mls/hr Documented by: [id number] Infusion: 08/20/21 13:07 Dose: 0 mls/hr Documented by: [id number] Admin: 08/20/21 04:59 Dose: 125 mls/hr Documented by: [id number] Infusion: 08/20/21 04:59 Dose: 0 mls/hr Documented by: [id number] Admin: 08/19/21 23:15 Dose: 125 mls/hr Documented by: [id number] Sodium Chloride (Nss 1000ml) 250 mls @ 999 mls/hr IV .Q16M ONE Stop: 08/19/21 22:31 Last Infusion: 08/19/21 23:15 Dose: 0 mls/hr Documented by: [id number] Admin: 08/19/21 22:59 Dose: 999 mls/hr Documented by: [id number] Magnesium Sulfate/Dextrose (Magnesium Sulfate / D5w) 1 gm in 100 mls @ 50 ml s/hr IV Q2H RICKY Stop: 08/20/21 06:14 Last Infusion: 08/20/21 06:31 Dose: 0 mls/hr Documented by: [id number] Admin: 08/20/21 04:12 Dose: 50 mls/hr Documented by: [id number] Infusion: 08/20/21 04:12 Dose: 0 mls/hr Documented by: [id number] Admin: 08/20/21 02:17 Dose: 50 mls/hr Documented by: [id number] Azithromycin 500 mg/ Dextrose 255 mls @ 125 mls/hr IV DAILY RICKY Stop: 08/22/21 08:59 Last Infusion: 08/20/21 11:55 Dose: 0 mls/hr Documented by: [id number] Admin: 08/20/21 09:07 Dose: 125 mls/hr Documented by: [id number] Insulin Aspart (Insulin Aspart Per Unit) 0 units SC ACHS RICKY Stop: 09/19/21 07:29 Last Admin: 08/20/21 18:28 Dose: Not Given Documented by: [id number] Admin: 08/20/21 12:00 Dose: 1 units Documented by: [id number] Cosigned by: [id number] Admin: 08/20/21 09:27 Dose: 1 units Documented by: [id number] Cosigned by: [id number] Ioversol (Optiray 320 125ml) 120 ml IV ONCE ONE Stop: 08/19/21 22:42 Last Admin: 08/19/21 22:42 Dose: 120 ml Documented by: [id number] Methylprednisolone (Methylprednisolone 125 Mg/2 Ml Vial) 60 mg IV NOW STA Stop: 08/19/21 22:21 Last Admin: 08/19/21 22:30 Dose: 60 mg Documented by: [id number] Ondansetron HCl (Ondansetron Inj 2 Mg/Ml 2 Ml Vial) 4 mg IV NOW STA Stop: 08/20/21 00:19 Last Admin: 08/20/21 01:28 Dose: Not Given Documented by: [id number] Ondansetron HCl (Ondansetron Inj 2 Mg/Ml 2 Ml Vial) 4 mg IV NOW STA Stop: 08/20/21 00:25 Last Admin: 08/20/21 01:27 Dose: Not Given Documented by: [id number] Pneumococcal Polyvalent Vaccine (Pneumococcal Polysaccharides 25 Mcg/0.5 Ml Vial/Syr) 25 mcg IM .ONCE ONE Stop: 08/20/21 06:54 Last Admin: 08/20/21 09:11 Dose: Not Given Documented by: [id number] Imaging Data Radiologist's Impression: Chest CTA 08/19/21 22:16 CHEST CTA for PULMONARY ARTER[address] DOSE: 248.80 mGy.cm HISTORY: Dyspnea TECHNIQUE: Multiaxial CT images of the chest were performed following the in travenous administration of contrast to evaluate the pulmonary arteries. Maximal intensity projection images were also obtained. A dose lowering technique was utilized adhering to the principles of ALARA. COMPARISON STUDY: None. FINDINGS: Limited views the upper abdomen demonstrate normal liver, spleen, and adrenal glands. The thyroid gland enhances normally. No mediastinal or hilar lymphadenopathy. The heart is normal in size. No pleural or pericardial effusions. Mild calcified plaque within the normal caliber thoracic aorta. No evidence for an aortic dissection. No filling defects within the pulmonary arteries to suggest a pulmonary embolus. A few old, healed bilateral rib fractures. No acute fractures identified. No pneumothorax. No pleural effusions. Mild bronchial wall thickening. Partial opacification of the bilateral lower lobe segmental bronchi most pronounced on the right. There is moderate to severe emphysema. A 4 mm nodule within the left lower lobe on image 73. A 7 mm nodular density at the base of the left lower lobe on image 59. A 4 mm nodule within the left lower lobe on image 115. A 5 mm groundglass nodule within the left lower lobe on image 136. Focal irregular density within the right lung apex on image 227 measuring approximately 1 cm. A 4 mm nodule within the right lower lobe on image 48. A 5 mm nodule within the right lower lobe on image 102. IMPRESSION: 1. No evidence for pulmonary embolus. 2. Emphysema. 3. A 1 cm focal irregular density within the right lung apex. This could represent scarring. However, [address] follow-up recommended to exclude the possibility of a pulmonary lesion. 4. Additional scattered subcentimeter pulmonary nodules as described above with the largest in the left lower lobe measuring 7 mm. These also require follow-up to ensure stability. ACT 112: Positive. There are findings on this exam that require communication between the performing entity and the patient following Patient Test Result Information Act ([place] Act 112) guidelines. Electronically signed by: Celio Palma M.D. 08/20/2021 10:04 AM Discharge Plan Visit Data Chief Complaint: Respiratory Arrest Stated Complaint: SYNCOPAL EPISODE/POSSIBLE SEIZURE ED Provider: Ankita Bob Patient Disposition: Admitted As Inpatient Discharge Instructions Interventions: ED Discharge Assessment Last Done: 08/20/21 06:25
[2021-08-20] MEDS: methylPREDNISolone 40 MG in SYRINGE 0 ML IV SCH (20:47)
[2021-08-20] MEDS ORDERED: methylPREDNISolone 40 MG in SYRINGE 0 ML IV SCH (21:00)
[2021-08-21] MEDS: BUDESONIDE 0.5 MG/2 ML VIAL (PULMICORT) NEB SCH (07:09)
[2021-08-21] MEDS: ALBUT/IPRATROP 3MG/0.5MG NEB 3 ML VIAL NEB SCH ×2 (07:09→11:08)
[2021-08-21 07:10] LABS: Hematocrit (blood only) 43.8 % (37-47); Hemoglobin 14.4 g/dL (12.0-16.0); Immature Granulocytes # (auto) 0.03 K/uL (0.00-0.02); Immature Granulocytes % (auto) 0.2 %; Lymphocytes # (auto) 1.23 K/uL (1.2-3.4); Lymphocytes % (auto) 9.8 %; Mean Corpuscular Hemoglobin 31.9 pg (25-34); Mean Corpuscular Hgb Conc 32.9 g/dL (32-36); Mean Corpuscular Volume 97.1 fL (80-100); Mean Platelet Volume 9.7 fL (7.4-10.4); Monocytes # (auto) 0.55 K/uL (0.11-0.59); Monocytes % (auto) 4.4 %; Neutrophils # (auto) 10.71 K/uL (1.4-6.5); Neutrophils % (auto) 85.6 %; Platelet Count 327 K/uL (130-400); RDW Coefficient of Variation 12.6 % (11.5-14.5); RDW Standard Deviation 45.1 fL (36.4-46.3); Red Blood Count 4.51 M/uL (4.2-5.4); White Blood Count 12.52 K/uL (4.8-10.8)
[2021-08-21 07:23] LABS: Partial Thromboplastin Ratio 0.9; Partial Thromboplastin Time 25.1 Seconds (21.0-31.0); Prothrombin Time 10.3 Seconds (9.0-12.0)
[2021-08-21 07:32] LABS: Albumin Globulin Ratio 1.6 (0.9-2); BUN Creatinine Ratio 23.3 (10-20); Bilirubin,Total 0.7 mg/dl (0.2-1.0); Calcium 9.2 mg/dl (8.5-10.1); Creatinine Clr Calc Pharmacy 60.3 ml/min; Est GFR (African American) 105.2 ml/min; Est GFR (Non-African American) 90.8 ml/min; Globulin 2.5 gm/dl (2.5-4.0); Magnesium 1.8 mg/dl (1.7-2.4); Potassium 4.5 mmol/L (3.5-5.1); Total Protein 6.5 gm/dl (6.0-8.3)
[2021-08-21] MEDS: methylPREDNISolone 40 MG in SYRINGE 0 ML IV SCH (08:32)
[2021-08-21] MEDS: UMECLIDINIUM/VILANTEROL 62.5/25MCG 7 PUFFS/INHALER INH SCH (08:32)
[2021-08-21] MEDS: FOLIC ACID 1 MG TAB PO SCH (08:33)
[2021-08-21] MEDS: METOPROLOL TARTRATE 50 MG TAB PO SCH (08:33)
[2021-08-21] MEDS: THIAMINE HCL 100 MG TAB PO SCH (08:33)
[2021-08-21] MEDS: PANTOprazole 40 MG TAB PO SCH (08:33)
[2021-08-21] MEDS ORDERED: AZITHROMYCIN 250 MG TAB PO SCH (09:00)
--- NOTE | 2021-08-21 09:52 | Discharge Summary ---
Date of Service August 21, 2021 Admission HPI Per Admitting Provider The patient is a 60-year-old female with a past medical history including COPD, hypertension, GERD, tobacco use disorder, daily alcohol use, daily marijuana use who presents to the emergency department as noted above. The patient reports that the morning before, she had gone for a walk, including outside in the [place], and did fine with that, later on in the afternoon that day, Friday, she became fatigued, but did become more energetic Friday evening. Yesterday morning, Friday, when she awoke she would report that she was tired, remained tired today. She also developed shortness of breath, has a chronic cough, and reportedly was sitting on her chair when she became aware that she was losing bladder control, and way down to the floor, and lost consciousness, at which time her began CPR. She reportedly did come to at home, and was brought to the ED for assessment of a respiratory arrest. Principal Diagnosis COPD exacerbation Loss of consciousness Discharge Exam Constitutional WD/WN, vitals as above Respiratory normal respiratory effort, lungs clear to auscultation Cardiovascular RRR, no murmur, no edema Gastrointestinal (Abdomen) normal bowel sounds, soft, nontender, no hepatosplenomegaly Psychiatric A+Ox3, euthymic affect Discharge Data Allergies Allergy/AdvReac Type Severity Reaction Status Date / Time Penicillins Allergy Unknown . Unverified 08/19/21 22:34 Consultations 08/20/21 02:14 ED Decision to Admit Stat Ordered Studies 08/19/21 22:16 CT angio chest PE protocol Urgent IMPRESSION: 1. No evidence for pulmonary embolus. 2. Emphysema. 3. A 1 cm focal irregular density within the right lung apex. This could represent scarring. However, [address] follow-up recommended to exclude the possibility of a pulmonary lesion. 4. Additional scattered subcentimeter pulmonary nodules as described above with the largest in the left lower lobe measuring 7 mm. These also require follow-up to ensure stability. Hospital Course (1) Loss of consciousness for less than 30 minutes: Addie Poole is a 60 year old female admitted overnight at [facility] from August 20 to 2021 due to loss of consciousness and suspected respiratory arrest. No arrhythmias noted on telemetry. Transthoracic echocardiogram was unremarkable. Serial troponins were negative. Possible loss of consciousness from hypoxia or poor gas exchange from COPD exacerbation as her breathing had been the same day. She was treated for COPD exacerbation with azithromycin, Solu-Medrol and duonebs. Recommend continuing her duonebs regularly 4 times a day for the next 2 days and then as needed. She was switched to prednisone to start tomorrow for an additional 3 days. Recommend fo llow-up with her primary care physician in the next 1 to 2 weeks for hospital follow-up. Of note an incidental 1cm focal irregular density was noted on right lung aspect. Radiology recommended [address] follow-up to assess for a pulmonary lesion. There were also scattered noduled sub-cm nodules as noted above. (2) Respiratory arrest: (3) COPD (chronic obstructive pulmonary disease): (4) Hypertension: (5) Tobacco use disorder: (6) Alcohol abuse: (7) Hypomagnesemia: (8) Hyperglycemia: (9) Marijuana use, continuous: (10) Dehydration: (11) GERD (gastroesophageal reflux disease): Total Time Total Time Spent Total Time Spent (In Minutes): 40 Discharge Plan Discharge Items Patient Disposition: Home - Self-Care Reason For Visit: RESPIRATORY ARREST, LOC Discharge Diagnosis: COPD exacerbation Loss of consciousness Activity: Resume your previous activity Non-emergency contact: Primary Care Provider Call non-emergency contact if: you have any medication questions and your symptoms worsen Follow-up/Referrals: Janeth Perdue PA-C [Primary Care Provider] - 08/31/21 10:30 am (Please follow up with Janeth Perdue PA-C on Friday08/31/21 at 10:30 am. Please arrive to the office at 10:15 am for your appointment. If you are unable to keep this appointment, please call the office to reschedule at [phone]. ) Diet: Regular Addtl Attending Provider Instructions: You are admitted overnight at [facility] from August 20 to 2021 due to loss of consciousness and suspected respiratory arrest. Suspect this was due to COPD exacerbation. This was treated with azithromycin, steroids and nebulizer treatments. Recommend continuing on your duo nebs regularly 4 times a day for the next 2 days and then as needed. His steroids have been switched to prednisone to start tomorrow for an additional 3 days. You have 1 day left of azithromycin to be taken tomorrow. Please call your primary care physician if your breathing gets worse after stopping the prednisone. Please follow-up with your primary care physician in the next 1 to 2 weeks for hospital follow-up. Pending Studies at Discharge: No Stand-Alone Forms: [facility], Sm[facility] Cess[facility] Medications and DC Order Prescriptions: New ipratropium-albuterol 0.5 mg-3 mg(2.5 mg base)/3 mL Solution For Nebulization 3 ml NEB QIDR PRN (Reason: shortness of breath, wheezing) Qty: 180 RF: 0 Continued omeprazole 40 mg capsule,delayed release(DR/EC) 40 mg PO DAILY RF: 0 metoprolol tartrate 50 mg tablet 50 mg PO BID RF: 0 budesonide-formoterol [Symbicort] 160-4.5 mcg/actuation HFA aerosol inhaler 2 puff INHALATION BID RF: 0 Bevespi Aerosphere 9-4.8 mcg HFA aerosol inhaler 2 puff INHALATION DAILY RF: 0 Discontinued ipratropium-albuterol 0.5 mg-3 mg(2.5 mg base)/3 mL solution for nebulization 3 ml INHALATION QID PRN (Reason: Shortness Of Breath Or Wheezing) RF: 0 Discharge Orders: Discharge Order (Routine); Ordered 08/21/21 Ordered By: Esau Rizzo Admission Data Admit Date/Time: 08/20/21 02:02 Attending Provider: Esau Rizzo Admit Provider: Yuan Escamilla Primary Care Provider: Janeth Perdue Other Providers: Yuan Escamilla Other Interventions: Discharge Summary Assessment (RN) Last Done: 08/21/21 09:59 Coding Level of Care Code D/C DAY MANAGEMENT >30 MINS Diagnoses Loss of consciousness for less than 30 minutes Respiratory arrest R09.2 COPD (chronic obstructive pulmonary disease) J44.9 Hypertension I10 Tobacco use disorder F17.200 Alcohol abuse F10.10 Hypomagnesemia E83.42 Hyperglycemia R73.9 Marijuana use, continuous F12.90 Dehydration E86.0 GERD (gastroesophageal reflux disease) K21.9
[2021-08-22 10:56] LABS: Marijuana Quant, GCMS Urine 38 ng/mL (<5)
--- NOTE | 2021-08-22 13:29 | Electrocardiogram Report ---
Test Reason : Blood Pressure : / mmHG Vent. Rate : 096 BPM Atrial Rate : 096 BPM P-R Int : 156 ms QRS Dur : 076 ms QT Int : 386 ms P-R-T Axes : 081 068 068 degrees QTc Int : 487 ms Normal sinus rhythm Slightly Prolonged QT Otherwise normal ECG No previous ECGs available Confirmed by Gregg Lewis ([id number]) on 08/22/2021 1:28:30 PM Referred By: REFERRED SELF Confirmed By:Gregg Lewis
== END 2021-08-21 12:00 | disposition home or self-care (01) ==
LOC: ED 21:47 → SUATTDRO 08-20 02:02 → INTOOBSV 08-20 02:02 → 1E 08-20 02:02 → 2S 08-20 18:33
DX: R55 Syncope and collapse; Z88.0 Allergy status to penicillin; I10 Essential (primary) hypertension; F10.10 Alcohol abuse, uncomplicated; Z79.51 Long term (current) use of inhaled steroids; E86.0 Dehydration; Z79.899 Other long term (current) drug therapy; F17.210 Nicotine dependence, cigarettes, uncomplicated; R09.2 Respiratory arrest; E83.42 Hypomagnesemia; R73.9 Hyperglycemia, unspecified; K21.9 Gastro-esophageal reflux disease without esophagitis; J44.9 Chronic obstructive pulmonary disease, unspecified

== ENCOUNTER 2024-06-07 08:49 | Observation (INO) ==
--- NOTE | 2024-06-07 09:08 | Emergency Department Note ---
Impression & Plan Acute exacerbation of chronic obstructive pulmonary disease, URI (upper respiratory infection), Hypoxia ED Provider Note Provider: Harmeet Ricketts MD CHIEF COMPLAINT: Short of breath, cough, flu HISTORY OF PRESENT ILLNESS: Patient is a 63-year-old female history of COPD, GERD, and hypertension presenting here today reporting illness for the past 6 days. Started with more fever and cough and cold. Tested acute care on Friday for influenza. Worsened breathing started Friday night into today. No significant chest pain. Some near syncope but no actual syncope. Occasionally somewhat of a productive cough with green-yellow sputum. Has been using her inhaler at home with minimal improvement. Has had some fevers. Family members have been sick with RSV and daughter who she lives with does work at a daycare with illness as well reported. No nausea vomiting or diarrhea reported. PAST MEDICAL HISTORY: As noted above MEDICATIONS: Reviewed home medications includes home inhaler/nebulizer SOCIAL HISTORY: Smoker PHYSICAL EXAM: GENERAL: alert and oriented appears somewhat anxious seated upright on stretcher Head: normocephalic and atraumatic EYES: No injection, discharge or icterus. NECK: Trachea midline. Supple. ENT: Mucous membranes pink and moist. LUNGS: Airway patent. No retractions. Breath sounds diffuse expiratory wheeze, mild tachypnea HEART: Regular rate and rhythm. No chest wall tenderness ABDOMEN: Soft and non-tender, without guarding or rebound. SKIN: Acyanotic, warm, dry, without rashes EXTREMITIES: Without swelling, tenderness or deformity NEUROLOGICAL: No focal deficits. No aphasia. No facial droop or slurred speech. Ambulatory. EK bpm normal sinus rhythm. No PVC or PAC. No acute ST segment elevation or depression with a QTc of 437. CONTINUOUS CARDIAC MONITORING: was ordered and showed a heart rate of 80s to 90s bpm in normal sinus rhythm Patient's laboratory studies and imaging reviewed. Differential includes Reactive airway disease, pneumonia, pneumothorax, COPD, CHF, infections, cardiac ischemia, pulmonary embolism, musculoskeletal, gastrointestinal, as well as other pathologies. IMPRESSION/MEDICAL DECISION MAKING: Patient 6 days of illness. Reportedly positive for flu recently. Does have exposures to RSV reported as well. Respiratory viral panel ordered. Not hypoxic but with some significant wheeze and mild tachypnea. Given DuoNeb here and some IV Solu-Medrol given her history of COPD and concern for reactive airway disease. Not notably febrile or tachycardic here. Blood work is sent. Lower suspicion for true sepsis or PE at this time. EKG and troponin sent but not having significant chest pain. Blood work here without significant leukocytosis or anemia. Very slight hyponatremia but no other significant electrolyte abnormality signs of renal dysfunction. No evidence of acute hepatitis and no troponin elevation. Respiratory viral panel here interestingly is negative. Does seem likely viral in nature. Has had prolonged symptoms with a landing COPD and some productive cough will give some Mucinex and in discussion with her doxycycline which she states has helped in the past. Some improvement after nebulizer and not severely hypoxic but still with some wheeze and work of breathing. Is noted to newly be hypoxic here today. Discussed with patient negative respiratory panel and recommendation with her hypoxia that we continue to monitor and support her here in the hospital. Did give additional DuoNeb. Patient agreeable and hospitalist team was contacted for further care. DIAGNOSIS: Acute COPD exacerbation, upper respiratory infection, hypoxia DISPOSITION: Hospitalist will evaluate Patient was agreeable with this plan. Past Med/Surg History Problem List (Updated 06/07/24 @ 10:29 by Harmeet Ricketts M.D.) Hypoxia (Acute) URI (upper respiratory infection) (Acute) Acute exacerbation of chronic obstructive pulmonary disease (Acute) Respiratory arrest (Acute) Marijuana use, continuous Dehydration Hyperglycemia Loss of consciousness for less than 30 minutes Hypomagnesemia Alcohol abuse Tobacco use disorder Hypertension GERD (gastroesophageal reflux disease) COPD (chronic obstructive pulmonary disease) (Acute) Medical History Marijuana use, continuous Alcohol abuse Tobacco use disorder Hypertension GERD (gastroesophageal reflux disease) COPD (chronic obstructive pulmonary disease) Social History Smoking Status: Former smoker Tobacco Type: Cigarettes Hx Alcohol Use: Yes Hx Substance Use: No Preferred Language: Slovak Communication Ability: Effective Hospice Nurse Required: No Beliefs That Will Affect Care: None Current Living Situation: Family Feels Safe at Home: Yes Assistive Devices: None Allergies Allergies Allergy/AdvReac Type Severity Reaction Status Date / Time Penicillins Allergy Unknown . Unverified 08/19/21 22:34 Home Meds Home Medications Medication Instructions Recorded Confirmed budesonide-formoterol HFA 160 2 puff inhalation BID 08/19/21 06/07/24 mcg-4.5 mcg/actuation aerosol inhaler (Symbicort) glycopyrrolate 9 mcg-formoterol 2 puff inhalation DAILY 08/19/21 06/07/24 4.8 mcg HFA aerosol inhaler (Bevespi Aerosphere) metoprolol tartrate 50 mg tablet 75 mg PO BID 08/19/21 06/07/24 omeprazole 40 mg capsule,delayed 40 mg PO DAILY 08/19/21 06/07/24 release Vitamin B 1 tab PO DAILY 06/07/24 06/07/24 folic acid 1 tab PO DAILY 06/07/24 06/07/24 magnesium 1 tab PO DAILY 06/07/24 06/07/24 prednisone 20 mg tablet 20 mg PO DIRECTED 06/07/24 06/07/24 Previous Rx's Medication Instructions Recorded ipratropium 0.5 mg-albuterol 3 mg 3 ml NEB QIDR PRN shortness of 08/21/21 (2.5 mg base)/3 mL nebulization breath, wheezing #180 mL soln hydroxyzine HCl 25 mg tablet 25 mg PO TID PRN anxiety #14 tabs 03/16/22 Results & Data (ED) Vital Signs Vital Signs - 24 hr 06/07/24 08:51 06/07/24 09:05 06/07/24 09:06 Temperature 36.8 C Temperature Source Oral Pulse Rate 89 83 82 Pulse Rate [Apical] Pulse Rate from SpO2 Sensor 82 Pulse Rhythm [Apical] Pulse Strength [Apical] Respiratory Rate 26 H 17 Respiratory Effort / Characteristics Respiratory Depth Respiratory Pattern Blood Pressure Blood Pressure [Right Arm] Blood Pressure Mean Blood Pressure Mean [Right Arm] Blood Pressure Position Sitting Pulse Oximetry 91 95 Oxygen Delivery Method Room Air Oxygen Flow Rate Sepsis Recent Fever Within 48 Hours No Sepsis New/Unexplained Change in Mental Status No Sepsis Action Taken by Nursing No Action Required Oxygen Flow Rate - Titration Pulse Oximetry Post Tiitration 06/07/24 09:07 06/07/24 09:07 06/07/24 09:17 Temperature Temperature Source Pulse Rate Pulse Rate [Apical] Pulse Rate from SpO2 Sensor Pulse Rhythm [Apical] Pulse Strength [Apical] Respiratory Rate Respiratory Effort / Characteristics Spontaneous Labored Respiratory Depth Respiratory Pattern Blood Pressure 175/114 H Blood Pressure [Right Arm] Blood Pressure Mean 135 Blood Pressure Mean [Right Arm] Blood Pressure Position Pulse Oximetry 95 Oxygen Delivery Method Room Air Oxygen Flow Rate Sepsis Recent Fever Within 48 Hours Sepsis New/Unexplained Change in Mental Status Sepsis Action Taken by Nursing Oxygen Flow Rate - Titration Pulse Oximetry Post Tiitration 06/07/24 10:40 06/07/24 11:16 06/07/24 13:14 Temperature Temperature Source Pulse Rate Pulse Rate [Apical] 96 H 98 H Pulse Rate from SpO2 Sensor Pulse Rhythm [Apical] Regular Pulse Strength [Apical] Normal Normal Respiratory Rate 18 17 Respiratory Effort / Characteristics Non-Labored Spontaneous Non-Labored Spontaneous Respiratory Depth Normal Normal Respiratory Pattern Regular Blood Pressure Blood Pressure [Right Arm] 155/89 H 165/99 H Blood Pressure Mean Blood Pressure Mean [Right Arm] 111 121 Blood Pressure Position Pulse Oximetry 87 L 94 94 Oxygen Delivery Method Room Air Nasal Cannula Nasal Cannula Oxygen Flow Rate 2 2 Sepsis Recent Fever Within 48 Hours Sepsis New/Unexplained Change in Mental Status Sepsis Action Taken by Nursing Oxygen Flow Rate - Titration 2 Pulse Oximetry Post Tiitration 95 06/07/24 13:22 Temperature Temperature Source Pulse Rate 94 H Pulse Rate [Apical] Pulse Rate from SpO2 Sensor Pulse Rhythm [Apical] Pulse Strength [Apical] Respiratory Rate Respiratory Effort / Characteristics Respiratory Depth Respiratory Pattern Blood Pressure Blood Pressure [Right Arm] Blood Pressure Mean Blood Pressure Mean [Right Arm] Blood Pressure Position Pulse Oximetry Oxygen Delivery Method Oxygen Flow Rate Sepsis Recent Fever Within 48 Hours Sepsis New/Unexplained Change in Mental Status Sepsis Action Taken by Nursing Oxygen Flow Rate - Titration Pulse Oximetry Post Tiitration Laboratory Data 06/07/24 09:00 06/07/24 09:00 Lab Results 06/07/24 Range/Units 09:00 WBC 5.50 (4.8-10.8) K/ul RBC 5.13 (4.20-5.40) M/uL Hgb 15.5 (12.0-16.0) g/dl Hct 44.5 (37.0-47.0) % MCV 86.7 (80.0-100.0) fL MCH 30.2 (25.0-34.0) pg MCHC 34.8 (32.0-36.0) g/dL RDW Std Deviation 39.1 (36.4-46.3) fL RDW Coeff of Hari 12.2 (11.5-14.5) % Plt Count 312 (130-400) K/uL MPV 9.0 L (9.4-12.4) fL Immature Gran % (Auto) 1.1 % Neut % (Auto) 52.7 % Lymph % (Auto) 21.8 % Wilkin % (Auto) 24.0 % Eos % (Auto) 0.2 % Baso % (Auto) 0.2 % Neut # (Auto) 2.90 (1.40-6.50) K/uL Lymph # (Auto) 1.20 (1.20-3.40) K/uL Wilkin # (Auto) 1.32 H (0.11-0.59) K/uL Eos # (Auto) 0.01 (0.00-0.50) K/uL Baso # (Auto) 0.01 (0.00-0.20) K/uL Immature Gran # (Auto) 0.06 (0.01-0.20) K/uL Sodium 133 L (136-145) mmol/L Potassium 3.6 (3.5-5.1) mmol/L Chloride 97 L (98-107) mmol/L Carbon Dioxide 26 (21-32) mmol/L Anion Gap 10 (3-11) BUN 17 (6-23) mg/dl Creatinine 0.70 (0.6-1.2) mg/dl Est Cr Clr Drug Dosing 60.6 ml/min eGFR 98.34 BUN/Creatinine Ratio 24.3 H (10-20) Glucose 97 (70-99(Fasting)) mg/dl Calcium 9.8 (8.6-10.3) mg/dl Total Bilirubin 0.3 (0.2-1.0) mg/dl AST 20 (13-39) U/L ALT 16 (7-52) U/L Alkaline Phosphatase 69 (34-104) U/L Troponin I High Sens 3.4 (0-14) pg/ml Total Protein 8.1 (6.0-8.3) gm/dl Albumin 4.2 (3.4-5.0) gm/dl Globulin 3.9 (2.5-4.0) gm/dl Albumin/Globulin Ratio 1.1 (0.9-2) Adenovirus (PCR) Not Detected (NotDetected) B. pertussis DNA (PCR) Not Detected (NotDetected) B.parapertussis DNA PCR Not Detected (NotDetected) C. pneumoniae DNA (PCR) Not Detected (NotDetected) Coronavirus OC43 (PCR) Not Detected (NotDetected) Coronavirus HKU1 (PCR) Not Detected (NotDetected) Coronavirus 229E (PCR) Not Detected (NotDetected) SARS-CoV-2 (PCR) Not Detected (NotDetected) Coronavirus NL63 (PCR) Not Detected (NotDetected) Human Metapneumovir PCR Not Detected (NotDetected) Influenza Type A (PCR) Not Detected (NotDetected) Influenza Type B (PCR) Not Detected (NotDetected) M. pneumoniae (PCR) Not Detected (NotDetected) Parainfluenza 1 (PCR) Not Detected (NotDetected) Parainfluenza 2 (PCR) Not Detected (NotDetected) Parainfluenza 3 (PCR) Not Detected (NotDetected) Parainfluenza 4 (PCR) Not Detected (NotDetected) RSV (PCR) Not Detected (NotDetected) Entero/Rhino (PCR) Not Detected (NotDetected) Administered Medications Discontinued Medications Albuterol (Albut/Ipratrop 3mg/0.5mg Neb 3 Ml Vial) 12 ml NEB ONE ONE; Protocol Stop: 06/07/24 09:05 Last Admin: 06/07/24 09:12 Dose: 12 ml Documented By: MELL Doxycycline Hyclate (Doxycycline Hyclate 100 Mg Cap) 100 mg PO NOW STA Stop: 06/07/24 10:10 Last Admin: 06/07/24 10:19 Dose: 100 mg Documented By: MELL Guaifenesin (Guaifenesin 600 Mg Tabcr) 1,200 mg PO ONCE ONE Stop: 06/07/24 10:15 Last Admin: 06/07/24 10:20 Dose: 1,200 mg Documented By: MELL Methylprednisolone (Methylprednisolone 125 Mg/2 Ml Vial) 60 mg IV NOW STA Stop: 06/07/24 09:05 Last Admin: 06/07/24 09:12 Dose: 60 mg Documented By: MELL Imaging Data Radiologist's Impression: Chest X-Ray 06/07/24 08:59 XR chest 1V portable CLINICAL HISTORY: Dyspnea COMPARISON STUDY: 06/09/2023 FINDINGS: Single view chest demonstrates no significant interval change. There is no acute cardiopulmonary process identified. Findings consistent with emphysema are once again noted. There is no focal airspace opacity or pleural effusion. There is no pneumothorax. The heart and pulmonary vascularity are unremarkable. IMPRESSION: Stable exam. Emphysema redemonstrated with no acute process identified radiographically. ACT 112: Negative or not required by law. Electronically signed by: Henny Omalley M.D. 06/07/2024 9:47 AM Discharge Plan Visit Data Chief Complaint: Shortness of Breath/Dyspnea Stated Complaint: SOB ED Provider: Harmeet Ricketts Discharge Problem: Acute exacerbation of chronic obstructive pulmonary disease, URI (upper respiratory infection), Hypoxia Patient Disposition: Being Evaluated by Hospitalist Forms Stand Alone Forms: My [facility] [employer] Prescriptions Prescriptions: No Action omeprazole 40 mg capsule,delayed release(DR/EC) 40 mg PO DAILY metoprolol tartrate 50 mg tablet 75 mg PO BID budesonide-formoterol [Symbicort] 160-4.5 mcg/actuation HFA aerosol inhaler 2 puff INHALATION BID Bevespi Aerosphere 9-4.8 mcg HFA aerosol inhaler 2 puff INHALATION DAILY ipratropium-albuterol 0.5 mg-3 mg(2.5 mg base)/3 mL Solution For Nebulization 3 ml NEB QIDR PRN (Reason: shortness of breath, wheezing) Qty: 180 0RF hydroxyzine HCl 25 mg tablet 25 mg PO TID PRN (Reason: anxiety) Qty: 14 0RF prednisone 20 mg tablet 20 mg PO DIRECTED Vitamin B 1 tab PO DAILY Rx Instructions: otc unknown dose folic acid 1 tab PO DAILY Rx Instructions: otc unknown dose magnesium 1 tab PO DAILY Rx Instructions: otc unknown dose Referrals Referrals: Janeth Perdue PA-C [Primary Care Provider] -
[2024-06-07] MEDS: ALBUT/IPRATROP 3MG/0.5MG NEB 3 ML VIAL NEB ONE (09:12)
[2024-06-07] MEDS: methylPREDNISolone 125 MG/2 ML VIAL IV STA (09:12)
[2024-06-07 09:15] LABS: Hematocrit (blood only) 44.5 % (37.0-47.0); Hemoglobin 15.5 g/dl (12.0-16.0); Mean Corpuscular Hemoglobin 30.2 pg (25.0-34.0); Mean Corpuscular Hgb Conc 34.8 g/dL (32.0-36.0); Mean Corpuscular Volume 86.7 fL (80.0-100.0); Platelet Count 312 K/uL (130-400); RDW Coefficient of Variation 12.2 % (11.5-14.5); RDW Standard Deviation 39.1 fL (36.4-46.3); Red Blood Count 5.13 M/uL (4.20-5.40)
[2024-06-07 09:43] LABS: Albumin Globulin Ratio 1.1 (0.9-2); Albumin Level 4.2 gm/dl (3.4-5.0); BUN Creatinine Ratio 24.3 (10-20); Bilirubin,Total 0.3 mg/dl (0.2-1.0); Calcium 9.8 mg/dl (8.6-10.3); Creatinine Clr Calc Pharmacy 60.6 ml/min; Globulin 3.9 gm/dl (2.5-4.0); Potassium 3.6 mmol/L (3.5-5.1); Total Protein 8.1 gm/dl (6.0-8.3)
[2024-06-07 09:49] LABS: Troponin I High Sensitivity 3.4 pg/ml (0-14)
--- NOTE | 2024-06-07 09:50 | XRay Report ---
XR chest 1V portable CLINICAL HISTORY: Dyspnea COMPARISON STUDY: 06/09/2023 FINDINGS: Single view chest demonstrates no significant interval change. There is no acute cardiopulm onary process identified. Findings consistent with emphysema are once again noted. There is no focal airspace opacity or pleural effusion. There is no pneumothorax. The heart and pulmonary vascularity a re unremarkable. IMPRESSION: Stable exam. Emphysema redemonstrated with no acute process identified radiographically. ACT 112: Negative or not required by law. Electronically signed by: Henny Omalley M.D. 06/07/2024 9:47 AM
[2024-06-07 10:04] LABS: Adenovirus PCR Not Detected (NotDetected); Bordetella parapertussis PCR Not Detected (NotDetected); Bordetella pertussis PCR Not Detected (NotDetected); Chlamydia pneumoniae PCR Not Detected (NotDetected); Coronavirus 229E PCR Not Detected (NotDetected); Coronavirus CoV-2 (COVID19)PCR Not Detected (NotDetected); Coronavirus HKU1 PCR Not Detected (NotDetected); Coronavirus NL63 PCR Not Detected (NotDetected); Coronavirus OC43PCR Not Detected (NotDetected); Human Metapneumovirus PCR Not Detected (NotDetected); Influenza A PCR Not Detected (NotDetected); Influenza B PCR Not Detected (NotDetected); Mycoplasma pneumoniae PCR Not Detected (NotDetected); Parainfluenza Virus 1 PCR Not Detected (NotDetected); Parainfluenza Virus 2 PCR Not Detected (NotDetected); Parainfluenza Virus 3 PCR Not Detected (NotDetected); Parainfluenza Virus 4 PCR Not Detected (NotDetected); Respiratory Syncytial VirusPCR Not Detected (NotDetected); Rhinovirus/Enterovirus PCR Not Detected (NotDetected)
[2024-06-07 10:16] LABS: Basophils # (auto) 0.01 K/uL (0.00-0.20); Basophils % (auto) 0.2 %; Eosinophils # (auto) 0.01 K/uL (0.00-0.50); Eosinophils % (auto) 0.2 %; Immature Granulocytes # (auto) 0.06 K/uL (0.01-0.20); Immature Granulocytes % (auto) 1.1 %; Lymphocytes % (auto) 21.8 %; Monocytes # (auto) 1.32 K/uL (0.11-0.59); Neutrophils % (auto) 52.7 %
[2024-06-07] MEDS: DOXYCYCLINE HYCLATE 100 MG CAP PO STA (10:19)
[2024-06-07] MEDS: guaiFENesin 600 MG TABCR PO ONE (10:20)
--- NOTE | 2024-06-07 11:12 | History & Physical Report ---
Date of Service June 07, 2024 Assessment & Plan (1) Hypoxia: Plan: Acute hypoxic respiratory failure 2/2 acute on chronic COPD - Reportedly Flu A positive as outpatient several days ago, Biofire negative here Titrate oxygen to goal 89% Chest x-ray: No evidence of lobar pneumonia. No double sicking hx. No lekuocytosis. BioFire negative. Tamiflu deferred Continue home inhaler/formulary equivalent Albuterol every 2 hours as needed as needed, DuoNebs every 4-6 hours interchanged Continue methylprednisolone 40 mg twice daily wean as clinically tolerated Doxycycline 100 mg twice daily ordered in the ER for COPD exacerbation. Will continue this. EKG without evidence of acute territorial ischemia History of alcohol use/mild withdrawal Patient reports that she only drinks on weekends in the last year, and she has no at goal in the last week due to feeling poorly Low risk, monitor clinically GERD PPI switch to omeprazole and admission Hypertension Continue metoprolol 75 mg tartrate p.o. twice daily DVT prophylaxis: Lovenox Diet: Regular Disposition: MSO CODE STATUS: Full code (2) URI (upper respiratory infection): (3) COPD (chronic obstructive pulmonary disease): (4) GERD (gastroesophageal reflux disease): History of Present Illness Primary Care Provider: Janeth Real is a 63-year-old female with past medical history of COPD, GERD, tobacco use, alcohol use who presents with acute hypoxic respiratory failure and a COPD exacerbation. BioFire is negative. Chest x-ray shows emphysema with no evidence of pleural effusion, pulmonary edema, or lobar pneumonia. She is recommended for admission and treatment of acute hypoxic respiratory failure due to COPD Addie reports she was sick with congesiton, cough, wheezing, and fatigue all week last week Went to her regular [facility] doctor. Reports 'I got checked in, put in a room, but wasn't seen by the doctor because I was sick and they sent me to acute care.' Went to acute care and had a flu swab and xray which was positive for Flu A. Flu swab on on Friday, 3 days ago. Does feel like she is improving overall since Friday, but has had a terrible cough and increased shortness of breath the last 2-3 days with thick yellow sputum production Had fevers and chills initially, none since the weekend. No chest pain no chest pressure. No shortness of breath at rest +wheezing prior to admission, none since having a breathing treatment Started prednisone 20mg 2 days ago, didn't take this today. Not ure if it helped Medical History: Reviewed Medications: Reviewed Surgical History: Reviewed Family history: Reviewed Allergies: Reviewed Social History: Current tobacco use 0.25ppd-1ppdx">20 years". ETOH. Now only drinks ETOH on weekends, and none the past week due to feeling ill Code Status: DNR/DNI Allergies Allergy/AdvReac Type Severity Reaction Status Date / Time Penicillins Allergy Unknown . Unverified 08/19/21 22:34 Home Medications Medication Instructions Recorded Confirmed Type budesonide-formoterol HFA 160 2 puff inhalation BID 08/19/21 06/07/24 History mcg-4.5 mcg/actuation aerosol inhaler (Symbicort) glycopyrrolate 9 mcg-formoterol 2 puff inhalation DAILY 08/19/21 06/07/24 History 4.8 mcg HFA aerosol inhaler (Bevespi Aerosphere) metoprolol tartrate 50 mg tablet 75 mg PO BID 08/19/21 06/07/24 History omeprazole 40 mg capsule,delayed 40 mg PO DAILY 08/19/21 06/07/24 History release ipratropium 0.5 mg-albuterol 3 mg 3 ml NEB QIDR PRN shortness of 08/21/21 06/07/24 Rx (2.5 mg base)/3 mL nebulization breath, wheezing #180 mL soln hydroxyzine HCl 25 mg tablet 25 mg PO TID PRN anxiety #14 tabs 03/16/22 06/07/24 Rx Vitamin B 1 tab PO DAILY 06/07/24 06/07/24 History folic acid 1 tab PO DAILY 06/07/24 06/07/24 History magnesium 1 tab PO DAILY 06/07/24 06/07/24 History prednisone 20 mg tablet 20 mg PO DIRECTED 06/07/24 06/07/24 History Past Med/Surg History Problem List (Updated 06/07/24 @ 10:29 by Harmeet Ricketts M.D.) Hypoxia (Acute) URI (upper respiratory infection) (Acute) Acute exacerbation of chronic obstructive pulmonary disease (Acute) Respiratory arrest (Acute) Marijuana use, continuous Dehydration Hyperglycemia Loss of consciousness for less than 30 minutes Hypomagnesemia Alcohol abuse Tobacco use disorder Hypertension GERD (gastroesophageal reflux disease) COPD (chronic obstructive pulmonary disease) (Acute) Medical History Marijuana use, continuous Alcohol abuse Tobacco use disorder Hypertension GERD (gastroesophageal reflux disease) COPD (chronic obstructive pulmonary disease) Social History Smoking Status: Former smoker Tobacco Type: Cigarettes Hx Alcohol Use: Yes Hx Substance Use: No Preferred Language: Kazakh Communication Ability: Effective [employer] Required: No Beliefs That Will Affect Care: None Current Living Situation: Family Feels Safe at Home: Yes Assistive Devices: None Physical Exam Physical Exam: General: A&Ox3. NAD. Cooperative. HEENT: Atraumatic, normocephalic. Vision/hearing intact Pulm: Diffuse scattered wheezing bilaterally. No distress. Moderate-good air movement. Cardiac: Regular, tachycardic, -mrg. Radial pulses intact and symmetrical. Abdominal: Nontender, nondistended, soft. BS present. Ext: warm, dry. Moves all extremities equally Results & Data Results & Data Vital Signs (Past 12 Hours) Vital Signs Temp Pulse Resp BP Pulse Ox O2 Del Method 06/07/24 10:40 87 L Room Air 06/07/24 09:07 175/114 H 06/07/24 09:07 95 Room Air 06/07/24 09:06 82 17 95 06/07/24 09:05 83 06/07/24 08:51 36.8 C 89 26 H 91 Room Air PG Care Time/CCT Total # of Minutes Spent Total Time Spent with Patient: Total time spent is greater than 50% in coordination of care (as documented) at patient's floor/unit and/or counseling patient: Coding Level of Care Code 68228 INT INP/OBS CARE 2/55MIN Diagnoses Hypoxia R09.02 URI (upper respiratory infection) J06.9 COPD (chronic obstructive pulmonary disease) J44.9 COPD type: unspecified COPD GERD (gastroesophageal reflux disease) K21.9 (3) COPD (chronic obstructive pulmonary disease) COPD type: unspecified COPD Qualified Code(s): J44.9 - Chronic obstructive pulmonary disease, unspecified
--- NOTE | 2024-06-07 13:09 | Electrocardiogram Report ---
Test Reason : Blood Pressure : */* mmHG Vent. Rate : 85 BPM Atrial Rate : 85 BPM P-R Int : 144 ms QRS Dur : 68 ms QT Int : 368 ms P-R-T Axes : 76 56 70 degrees QTcB Int : 437 ms Normal sinus rhythm Normal ECG When compared with ECG of 09-Jun-2023 05:20, No significant change was found Confirmed by Wilfredo Corral ([id number]) on 06/07/2024 1:09:18 PM Referred By: Confirmed By: Wilfredo Corral
[2024-06-07] MEDS ORDERED: ACETAMINOPHEN 325 MG TAB PO PRN (17:03)
[2024-06-07] MEDS ORDERED: hydrOXYzine HCl 25 MG TAB PO PRN (17:03)
[2024-06-07] MEDS ORDERED: LEVALBUTEROL 1.25 MG/3 ML NEB NEB PRN (17:03)
[2024-06-07] MEDS: ALBUT/IPRATROP 3MG/0.5MG NEB 3 ML VIAL INH SCH (18:03)
[2024-06-07] MEDS: DOXYCYCLINE HYCLATE 100 MG CAP PO SCH (20:45)
[2024-06-07] MEDS: guaiFENesin 600 MG TABCR PO SCH (20:45)
[2024-06-07] MEDS: METOPROLOL TARTRATE 25 MG TAB PO SCH (20:45)
[2024-06-07] MEDS: ENOXAPARIN INJ 40 MG/0.4 ML SYR SQ SCH (20:45)
[2024-06-08 06:56] LABS: Basophils # (auto) 0.02 K/uL (0.00-0.20); Basophils % (auto) 0.3 %; Hematocrit (blood only) 40.3 % (37.0-47.0); Hemoglobin 13.7 g/dl (12.0-16.0); Immature Granulocytes # (auto) 0.06 K/uL (0.01-0.20); Immature Granulocytes % (auto) 0.8 %; Lymphocytes % (auto) 18.4 %; Mean Corpuscular Hemoglobin 30.1 pg (25.0-34.0); Mean Corpuscular Volume 88.6 fL (80.0-100.0); Mean Platelet Volume 9.3 fL (9.4-12.4); Monocytes # (auto) 1.27 K/uL (0.11-0.59); Monocytes % (auto) 16.7 %; Neutrophils # (auto) 4.87 K/uL (1.40-6.50); Neutrophils % (auto) 63.8 %; Platelet Count 277 K/uL (130-400); RDW Coefficient of Variation 12.2 % (11.5-14.5); RDW Standard Deviation 39.8 fL (36.4-46.3); Red Blood Count 4.55 M/uL (4.20-5.40); White Blood Count 7.62 K/ul (4.8-10.8)
[2024-06-08 07:18] LABS: BUN Creatinine Ratio 24.3 (10-20); Calcium 9.1 mg/dl (8.6-10.3); Creatinine Clr Calc Pharmacy 60.6 ml/min; Potassium 3.7 mmol/L (3.5-5.1)
[2024-06-08 07:22] VITALS: BP 157/79; TEMP 98.1
[2024-06-08] MEDS: FLUTICASONE/VILANTEROL 100/25MCG 14 PUFFS/INHALER INH SCH (08:26)
[2024-06-08] MEDS: PANTOprazole 40 MG TAB PO SCH (08:26)
--- NOTE | 2024-06-08 10:17 | Discharge Summary ---
Discharge Summary Date of Service June 08, 2024 Principal Dx & Hospital Course #1 = Principal Diagnosis (1) Hypoxia: Acute hypoxic respiratory failure 2/2 acute on chronic COPD - Reportedly Flu A positive as outpatient several days ago, Biofire negative here Titrate oxygen to goal 89% Chest x-ray: No evidence of lobar pneumonia. No double sicking hx. No lekuocytosis. BioFire negative. Tamiflu deferred Continue home inhaler/formulary equivalent Albuterol every 2 hours as needed as needed, DuoNebs every 4-6 hours interchanged Continue methylprednisolone 40 mg twice daily wean as clinically tolerated Doxycycline 100 mg twice daily ordered in the ER for COPD exacerbation. Will continue this. EKG without evidence of acute territorial ischemia History of alcohol use/mild withdrawal Patient reports that she only drinks on weekends in the last year, and she has no at goal in the last week due to feeling poorly Low risk, monitor clinically GERD PPI switch to omeprazole and admission Hypertension Continue metoprolol 75 mg tartrate p.o. twice daily DVT prophylaxis: Lovenox Diet: Regular Disposition: MSO CODE STATUS: Full code (2) URI (upper respiratory infection): (3) COPD (chronic obstructive pulmonary disease): (4) GERD (gastroesophageal reflux disease): Admission HPI Per Admitting Provider Addie is a 63-year-old female with past medical history of COPD, GERD, tobacco use, alcohol use who presents with acute hypoxic respiratory failure and a COPD exacerbation. BioFire is negative. Chest x-ray shows emphysema with no deepak dence of pleural effusion, pulmonary edema, or lobar pneumonia. She is recommended for admission and treatment of acute hypoxic respiratory failure due to COPD Addie reports she was sick with congesiton, cough, wheezing, and fatigue all week last week Went to her regular [facility] doctor. Reports 'I got checked in, put in a room, but wasn't seen by the doctor because I was sick and they sent me to acute care.' Went to acute care and had a flu swab and xray which was positive for Flu A. Flu swab on on Friday, 3 days ago. Does feel like she is improving overall since Friday, but has had a terrible cough and increased shortness of breath the last 2-3 days with thick yellow sputum production Had fevers and chills initially, none since the weekend. No chest pain no chest pressure. No shortness of breath at rest +wheezing prior to admission, none since having a breathing treatment Started prednisone 20mg 2 days ago, didn't take this today. Not ure if it helped Medical History: Reviewed Medications: Reviewed Surgical History: Reviewed Family history: Reviewed Allergies: Reviewed Social History: Current tobacco use 0.25ppd-1ppdx">20 years". ETOH. Now only drinks ETOH on weekends, and none the past week due to feeling ill Code Status: DNR/DNI Discharge Exam GENERAL APPEARANCE NAD, activity normal for age, well developed/ well nourished, no cyanosis, pallor, or diaphoresis. EYES lids/conjunctiva normal. EARS/NOSE/THROAT Mucous membranes moist, nares normal, lips/teeth normal uvula midline without oral pharyngeal erythema, exudate or swelling TMs normal bilaterally. No lymphangitis/lymphedema. HEAD/NECK normocephalic atraumatic, no facial trauma, neck is supple. RESPIRATORY respiratory effort normal, speaks in full sentences, no tripod position, no accessory muscle use. Lungs clear to auscultation without rhonchi, wheezes, rales CARDIAC Regular rate and rhythm, no edema. ABDOMINAL Soft, ND/NT. No evidence of fluid wave. No pulsatile masses on exam, rebound tenderness, Rosa sign or pain over Mcburney's point. MUSCLES/EXTREMITIES No abnormal range of motion, no swelling. SKIN Warm, pink and dry. No rashes, dermatoses, petechiae or lesions. NEUROLOGICAL Speech is clear and appropriate. Normal level of consciousness. Gait and coordination are normal. 5/5 strength in all extremities. PSYCH Normal mood and affect. Judgement/competence is appropriate Discharge Plan Discharge Items Patient Disposition: Home - Self-Care Reason For Visit: [facility] COPD 2/2 FLU Discharge Diagnosis: COPD exacerbation Activity: Resume your previous activity Non-emergency contact: Primary Care Provider Call non-emergency contact if: you have any medication questions Follow-up/Referrals: Janeth Perdue PA-C [Primary Care Provider] - Diet: Regular Addtl Attending Provider Instructions: Follow up with PMD in 2 weeks Pending Studies at Discharge: No Stand-Alone Forms: [employer], Smoking Cessation Medications and DC Order Prescriptions: New doxycycline hyclate 100 mg Capsule 100 mg PO BID Qty: 10 0RF guaifenesin [Mucinex] 600 mg Tablet Extended Release 12hr 1,200 mg PO BID Qty: 30 0RF prednisone 10 mg tablet 10 mg PO DIRECTED Qty: 20 0RF Rx Instructions: see taper instructions 4 tabs for 2 days then, 3 tabs for 2 days then, 2 tabs for 2 days, then, 1 tab for 2 days. Continued omeprazole 40 mg capsule,delayed release(DR/EC) 40 mg PO DAILY metoprolol tartrate 50 mg tablet 75 mg PO BID budesonide-formoterol [Symbicort] 160-4.5 mcg/actuation HFA aerosol inhaler 2 puff INHALATION BID Bevespi Aerosphere 9-4.8 mcg HFA aerosol inhaler 2 puff INHALATION DAILY ipratropium-albuterol 0.5 mg-3 mg(2.5 mg base)/3 mL Solution For Nebulization 3 ml NEB QIDR PRN (Reason: shortness of breath, wheezing) Qty: 180 0RF hydroxyzine HCl 25 mg tablet 25 mg PO TID PRN (Reason: anxiety) Qty: 14 0RF prednisone 20 mg tablet 20 mg PO DIRECTED Vitamin B 1 tab PO DAILY Rx Instructions: otc unknown dose folic acid 1 tab PO DAILY Rx Instructions: otc unknown dose magnesium 1 tab PO DAILY Rx Instructions: otc unknown dose Discharge Orders: Discharge Order (Routine); Ordered 06/08/24 Ordered By: Nicholas Rosales Admission Data Admit Date/Time: 06/07/24 11:44 Attending Provider: Nicholas Rosales Admit Provider: Elias Weiss Primary Care Provider: Janeth Perdue Other Providers: Elias Weiss Hospital Stay Data Consultations 06/07/24 11:10 ED Decision to Admit Stat Pending Results Patient Have Any Pending Studies at Discharge: No Discharge Instructions Given to Patient (Per Discharging Provider) Follow up with PMD in 2 weeks Total Time Total Time Spent Total Time Spent (In Minutes): 50 Coding Level of Care Code 57578 INP/OBS DISCH >30 MIN Diagnoses Hypoxia R09.02 URI (upper respiratory infection) J06.9 COPD (chronic obstructive pulmonary disease) J44.9 COPD type: unspecified COPD GERD (gastroesophageal reflux disease) K21.9
[2024-06-08 10:36] VITALS: PULSE 76; RESP 18; O2SAT 95
[2024-06-11] MEDS ORDERED: INFLUENZA VACC TS2024-25(6m+)/PF (IIV3) 0.5mL Syr IM ONE (12:00)
[2024-06-11] MEDS ORDERED: PNEUMOCOCCAL VACCINE (PCV20) 20-VAL CONJ-DIP CRM/PF 0.5 ML SYR IM ONE (12:00)
== END 2024-06-08 12:55 | disposition home or self-care (01) ==
LOC: ED 08:49 → SUATTDRO 11:44 → INTOOBSV 11:44 → EDINP 11:44 → 3E 17:23

== ENCOUNTER 2025-02-03 07:52 | Observation (INO) ==
--- NOTE | 2025-02-03 08:14 | Emergency Department Note ---
Impression & Plan COPD with acute exacerbation, Streptococcus pneumoniae infection, Mediastinal mass, Metastatic disease, Hypomagnesemia, Leukocytosis ED Provider Note NAME: VIVIENNE DON AGE: 64 SEX: F : 1960 ARRIVES VIA: Walk-In INFORMANT: Patient ED PROVIDER(S): Seamus Brooks MD CHIEF COMPLAINT: Shortness of breath PLAN: Disposition: Admit MEDICAL DECISION MAKING: The patient is a pleasant 64-year-old woman with a past medical history of COPD, tobacco use, alcohol use who presents to the emergency department via walk-in accompanied by her daughters for evaluation of worsening cough, congestion, generalized bodyaches and feverishness over the past week in the setting of being seen in this Emergency Department 01/28 for similar symptoms. Patient had provided a sputum sample which grew staph strep pneumoniae. Patient was prescribed cefpodoxime but per her report she was unable to pick this up at her pharmacy as it was not in stock. She had however completed azithromycin. She had been on a steroid taper. She denies nausea, vomiting or diarrhea. On evaluation the patient is mildly dyspneic but no acute distress, afebrile with heart in 100s and vital signs otherwise stable. She appears clinically dry. She exhibits wheezes of bilateral lung dong with prolonged expiration and mild increased work of breathing. EKG without overt acute ischemia. CXR negative for acute cardiopulmonary process per my personal preliminary review/interpretation. Lung nodules are described and better characterized on CT imaging subsequently. WBC 31.5 K with neutrophilia increased from prior in the setting of her steroid taper however left shift is noted. Hemoglobin within normal limits. Platelets 537K, similar to prior. Chemistry without metabolic acidosis. Magnesium 1.4 with IV repletion initiated. LFTs unremarkable. High-sensitivity troponin 5.6, within normal limits. Lipase is normal. Procalcitonin is not elevated. UA without evidence of infection. Respiratory BioFire was negative. CTA of the chest was performed and was negative for PE or focal consolidation. Mediastinal mass is described as well as nearby mediastinal lymphadenopathy and right upper lobe pulmonary nodules as well as interval left adrenal nodule likely metastatic. Upon reevaluation patient did report feeling improved following IV Federation, Solu-Medrol, guaifenesin guaifenesin and hour-long DuoNeb. We did review her findings and the patient reported that she is aware of suspicion for lung cancer. She reports she had discussed with her primary care doctor that she would not want any treatment and so evaluations not been pursued. However, given the patient's worsening respiratory symptoms in the setting of sick yellow productive sputum positive for strep pneumonia in the setting of her COPD the patient does agree with plan for admission for further treatment of her symptoms. Case was d/w Dr. Riz[place] [facility] [place] who will evaluate the patient for admission. Further management per admitting team. Triage Nursing notes reviewed and agree them. Prior/external medical records reviewed Vital Signs: reviewed Differential diagnosis: Reactive airway disease, pneumonia, pneumothorax, COPD, CHF, infections, cardiac ischemia, pulmonary embolism, musculoskeletal, gastrointestinal, as well as other pathologies. ER treatment provided: See below. Diagnostics interpreted by me: ECG: Sinus tachycardia, 104 bpm, no ectopy, no overt ST elevation or depression, QTc 454, QRS 70. Cardiac Monitoring: An order for continuous cardiac monitoring was placed and demonstrated sinus tachycardia, 104 bpm, no ectopy Laboratory studies: See below Imaging studies: See below Consultation(s): Case was d/w Dr. Rizzo [facility] [place] who will evaluate the patient for admission. HPI: Per MDM. ROS: See above HPI for pertinent positives & negatives. A total of 10 systems reviewed and were otherwise negative. VITALS:See Below PHYSICAL EXAMINATION: GENERAL: Awake, alert, in no distress HENT: Normocephalic, atraumatic. Oropharynx with dry mucous membranes and otherwise unremarkable. EYES: Normal conjunctiva. Sclera non-icteric. NECK: Supple. No nuchal rigidity. FROM. No JVD. RESPIRATORY: Wheezes of bilateral lung dong with prolonged expiration and mild increased work of breathing. CARDIAC: Tachycardic rate, normal rhythm. Extremities warm and well perfused. Pulses equal. ABDOMEN: Soft, non-distended. No tenderness to palpation. No rebound or guarding. No masses. MUSCULOSKELETAL: Chest examination reveals no tenderness. The back is symmetrical on inspection without obvious abnormality. There is no CVA tenderness to palpation. No joint edema. LOWER EXTREMITIES: Calves are equal size bilaterally and non-tender. No edema. No discoloration. NEURO: Normal sensorium. No sensory or motor deficits noted. SKIN: No rash or jaundice noted. Seamus Brooks MD Past Med/Surg History Problem List (Updated 02/04/25 @ 02:00 by Seamus Brooks MD) Leukocytosis (Acute) Hypomagnesemia (Acute) Metastatic disease (Acute) Mediastinal mass (Acute) Streptococcus pneumoniae infection (Acute) COPD with acute exacerbation (Acute) Cough productive of clear sputum (Acute) Acute exacerbation of chronic obstructive pulmonary disease (Acute) Upper respiratory infection (Acute) Hypoxia (Acute) Acute exacerbation of chronic obstructive pulmonary disease (Acute) Respiratory arrest (Acute) Marijuana use, continuous Dehydration Hyperglycemia Loss of consciousness for less than 30 minutes Hypomagnesemia Alcohol abuse Tobacco use disorder Hypertension GERD (gastroesophageal reflux disease) COPD (chronic obstructive pulmonary disease) (Acute) Social History Smoking Status: Current every day smoker Tobacco Type: Cigarettes Second Hand Exposure: No; Do You Dip or Chew Tobacco: No; Hx Alcohol Use: Yes Alcohol type: beer Hx Substance Use: No Preferred Language: Mauritian Communication Ability: Effective Filler Shredder Helper Required: No Beliefs That Will Affect Care: None Current Living Situation: Family Other Information That Helps Us Care for You: No Feels Safe at Home: Yes Safety Concerns: Feels Safe At This Time Assistive Devices: Denture - Upper and Glasses Allergies Allergies Allergy/AdvReac Type Severity Reaction Status Date / Time Penicillins Allergy Unknown . Unverified 01/28/25 09:50 Home Meds Home Medications Medication Instructions Recorded Confirmed budesonide-formoterol HFA 160 2 puff inhalation BID 08/19/21 02/03/25 mcg-4.5 mcg/actuation aerosol inhaler (Symbicort) metoprolol tartrate 50 mg tablet 75 mg PO BID 08/19/21 02/03/25 omeprazole 40 mg capsule,delayed 40 mg PO DAILY 08/19/21 02/03/25 release albuterol sulfate 90 mcg/actuation 2 puff inhalation UD PRN sob 01/28/25 02/03/25 aerosol inhaler Previous Rx's Medication Instructions Recorded ipratropium 0.5 mg-albuterol 3 mg 3 ml NEB QIDR PRN shortness of 08/21/21 (2.5 mg base)/3 mL nebulization breath, wheezing #180 mL soln prednisone 5 mg tablets in a dose See Rx Instructions PO .COMPLEX 01/28/25 pack #48 ea Results & Data (ED) Vital Signs Vital Signs - 24 hr 02/03/25 07:53 02/03/25 08:00 02/03/25 08:00 Temperature 37.1 C Temperature Source Temporal Artery Scan Pulse Rate 101 H Pulse Rate [Apical] 103 H Respiratory Rate 20 18 Respiratory Effort / Characteristics Blood Pressure 155/87 H Blood Pressure [Right Arm] 158/87 H Blood Pressure Mean 109 Blood Pressure Mean [Right Arm] 110 Pulse Oximetry 95 96 96 Oxygen Delivery Method Room Air Room Air Fraction of Inspired Oxygen Sepsis Recent Fever Within 48 Hours No Sepsis New/Unexplained Change in Mental Status No Sepsis Action Taken by Nursing No Action Required 02/03/25 08:00 02/03/25 08:36 02/03/25 08:58 Temperature Temperature Source Pulse Rate 103 H 102 H Pulse Rate [Apical] 101 H Respiratory Rate 18 21 Respiratory Effort / Characteristics Spontaneous Short of Breath Blood Pressure Blood Pressure [Right Arm] Blood Pressure Mean Blood Pressure Mean [Right Arm] Pulse Oximetry 96 96 Oxygen Delivery Method Room Air Room Air Fraction of Inspired Oxygen 21 Sepsis Recent Fever Within 48 Hours Sepsis New/Unexplained Change in Mental Status Sepsis Action Taken by Nursing 02/03/25 10:00 Temperature Temperature Source Pulse Rate Pulse Rate [Apical] 109 H Respiratory Rate 18 Respiratory Effort / Characteristics Blood Pressure Blood Pressure [Right Arm] 153/99 H Blood Pressure Mean Blood Pressure Mean [Right Arm] 117 Pulse Oximetry 94 Oxygen Delivery Method Nebulizer Fraction of Inspired Oxygen Sepsis Recent Fever Within 48 Hours Sepsis New/Unexplained Change in Mental Status Sepsis Action Taken by Nursing Laboratory Data Attestation: I reviewed the patient's lab results. 02/03/25 08:35 02/03/25 08:35 Lab Results 02/03/25 02/03/25 02/03/25 Range/Units 08:35 09:55 11:22 WBC 31.53 H* (4.8-10.8) K/ul RBC 4.33 (4.20-5.40) M/uL Hgb 12.2 (12.0-16.0) g/dl Hct 36.9 L (37.0-47.0) % MCV 85.2 (80.0-100.0) fL MCH 28.2 (25.0-34.0) pg MCHC 33.1 (32.0-36.0) g/dL RDW Std Deviation 38.8 (36.4-46.3) fL RDW Coeff of Hari 12.7 (11.5-14.5) % Plt Count 537 H (130-400) K/uL MPV 8.3 L (9.4-12.4) fL Immature Gran % (Auto) 1.0 % Neut % (Auto) 82.2 % Lymph % (Auto) 8.2 % Loving % (Auto) 8.2 % Eos % (Auto) 0.2 % Baso % (Auto) 0.2 % Neut # (Auto) 25.93 H (1.40-6.50) K/uL Lymph # (Auto) 2.58 (1.20-3.40) K/uL Loving # (Auto) 2.58 H (0.11-0.59) K/uL Eos # (Auto) 0.06 (0.00-0.50) K/uL Baso # (Auto) 0.07 (0.00-0.20) K/uL Immature Gran # (Auto) 0.31 H (0.01-0.20) K/uL PT 10.9 (9.0-12.0) Seconds INR 1.0 (0.9-1.1) Sodium 135 L (136-145) mmol/L Potassium 3.5 (3.5-5.1) mmol/L Chloride 98 (98-107) mmol/L Carbon Dioxide 29 (21-32) mmol/L Anion Gap 8 (3-11) BUN 8 (6-23) mg/dl Creatinine 0.47 L (0.6-1.2) mg/dl Est Cr Clr Drug Dosing Not Reportable eGFR 107.57 BUN/Creatinine Ratio 17.0 (10-20) Glucose 88 (70-99(Fasting)) mg/dl Lactate 0.9 (0.4-2.0) mmol/L Calcium 9.0 (8.6-10.3) mg/dl Magnesium 1.4 L (1.7-2.4) mg/dl Total Bilirubin 0.3 (0.2-1.0) mg/dl AST 11 L (13-39) U/L ALT 13 (7-52) U/L Alkaline Phosphatase 83 (34-104) U/L Troponin I High Sens 5.6 (0-14) pg/ml Total Protein 7.0 (6.0-8.3) gm/dl Albumin 3.2 L (3.4-5.0) gm/dl Globulin 3.8 (2.5-4.0) gm/dl Albumin/Globulin Ratio 0.8 L (0.9-2) Lipase 17 (11-82) U/L Procalcitonin 0.04 (0-0.5) ng/ml Urine Color Yellow Urine Appearance Clear (Clear) Urine pH 7.5 (4.5-7.5) Ur Specific Clyman 1.006 (1.000-1.030) Urine Protein Negative (Negative) Urine Glucose (UA) Negative (Negative) Urine Ketones Negative (Negative) Urine Blood Negative (Negative) Urine Nitrite Negative (Negative) Urine Bilirubin Negative (Negative) Urine Urobilinogen Negative (Negative) Ur Leukocyte Esterase Trace H (Negative) Urine WBC (Auto) 0-5 (0-5) /hpf Urine RBC (Auto) 0-2 (0-2) /hpf U Hyaline Cast (Auto) 0-2 (0-2) /lpf U Epithel Cells (Auto) 0-2 (0-2) /hpf Urine Bacteria (Auto) None Seen (None Seen) Urine Comment Adenovirus (PCR) Not Detected (NotDetected) B. pertussis DNA (PCR) Not Detected (NotDetected) B.parapertussis DNA PCR Not Detected (NotDetected) C. pneumoniae DNA (PCR) Not Detected (NotDetected) Coronavirus OC43 (PCR) Not Detected (NotDetected) Coronavirus HKU1 (PCR) Not Detected (NotDetected) Coronavirus 229E (PCR) Not Detected (NotDetected) SARS-CoV-2 (PCR) Not Detected (NotDetected) Coronavirus NL63 (PCR) Not Detected (NotDetected) Human Metapneumovir PCR Not Detected (NotDetected) Influenza Type A (PCR) Not Detected (NotDetected) Influenza Type B (PCR) Not Detected (NotDetected) M. pneumoniae (PCR) Not Detected (NotDetected) Parainfluenza 1 (PCR) Not Detected (NotDetected) Parainfluenza 2 (PCR) Not Detected (NotDetected) Parainfluenza 3 (PCR) Not Detected (NotDetected) Parainfluenza 4 (PCR) Not Detected (NotDetected) RSV (PCR) Not Detected (NotDetected) Entero/Rhino (PCR) Not Detected (NotDetected) Administered Medications Albuterol (Albut/Ipratrop 3mg/0.5mg Neb 3 Ml Vial) 3 ml NEB Q6R [facility]; Protocol Stop: 03/05/25 14:19 Last Admin: 02/04/25 01:20 Dose: Not Given Documented By: Admin: 02/03/25 19:51 Dose: Not Given Documented By: Admin: 02/03/25 14:50 Dose: 3 ml Documented By: [id number] Budesonide (Budesonide 0.5 Mg/2 Ml Vial (Pulmicort)) 0.5 mg NEB BIDR RICKY Stop: 03/05/25 18:59 Last Admin: 02/03/25 19:51 Dose: 0.5 mg Documented By: [email or web address] Formoterol Fumarate (Formoterol 20 Mcg/2 Ml Vial) 20 mcg NEB BIDR RICKY Stop: 03/05/25 18:59 Last Admin: 02/03/25 19:51 Dose: 20 mcg Documented By: [email or web address] Guaifenesin (Guaifenesin 600 Mg Tabcr) 1,200 mg PO Q12 RICKY Stop: 03/05/25 20:59 Last Admin: 02/03/25 19:59 Dose: 1,200 mg Documented By: [id number] Melatonin (Melatonin 3 Mg Tab) 3 mg PO HS RICKY Stop: 03/05/25 20:59 Last Admin: 02/03/25 22:31 Dose: 3 mg Documented By: [id number] Metoprolol Tartrate (Metoprolol Tartrate 25 Mg Tab) 75 mg PO BID RICKY Stop: 03/05/25 20:59 Last Admin: 02/03/25 19:58 Dose: 75 mg Documented By: [id number] Discontinued Medications Albuterol (Albut/Ipratrop 3mg/0.5mg Neb 3 Ml Vial) 12 ml NEB ONE ONE; Protocol Stop: 02/03/25 08:41 Last Admin: 02/03/25 08:55 Dose: 12 ml Documented By: [email or web address] Guaifenesin (Guaifenesin 600 Mg Tabcr) 1,200 mg PO NOW STA Stop: 02/03/25 08:41 Last Admin: 02/03/25 08:54 Dose: 1,200 mg Documented By: alejandra Sodium Chloride (Nss) 1,000 mls @ 999 mls/hr IV .Q1H1M ONE Stop: 02/03/25 09:40 Last Infusion: 02/03/25 09:51 Dose: Infused Documented By: alejandra Admin: 02/03/25 08:54 Dose: 999 mls/hr Documented By: alejandra Magnesium Sulfate/Dextrose (Magnesium Sulfate / D5w) 1 gm in 100 mls @ 100 mls/hr IV NOW STA Stop: 02/03/25 11:28 Last Infusion: 02/03/25 11:59 Dose: Infused Documented By: alejandra Admin: 02/03/25 10:51 Dose: 100 mls/hr Documented By: alejandra Ceftriaxone Sodium (Rocephin) 2,000 mg in 50 mls @ 100 mls/hr IV NOW STA Stop: 02/03/25 11:21 Last Infusion: 02/03/25 12:15 Dose: Infused Documented By: alejandra Admin: 02/03/25 11:38 Dose: 100 mls/hr Documented By: alejandra Magnesium Sulfate/Dextrose (Magnesium Sulfate / D5w) 1 gm in 100 mls @ 50 mls/hr IV Q2H RICKY Stop: 02/03/25 15:44 Last Infusion: 02/03/25 15:55 Dose: Infused Documented By: Admin: 02/03/25 13:55 Dose: 50 mls/hr Documented By: Infusion: 02/03/25 13:48 Dose: Infused Documented By: Admin: 02/03/25 11:59 Dose: 50 mls/hr Documented By: alejandra Ioversol (Optiray 320 125ml) 120 ml IV ONCE ONE Stop: 02/03/25 10:25 Last Admin: 02/03/25 10:25 Dose: 120 ml Documented By: CAILIN Methylprednisolone (Methylprednisolone 125 Mg/2 Ml Vial) 125 mg IV NOW STA Stop: 02/03/25 08:41 Last Admin: 02/03/25 08:54 Dose: 125 mg Documented By: alejandra Imaging Data Radiologist's Impression: Chest X-Ray 02/03/25 08:13 SINGLE VIEW CHEST CLINICAL HISTORY: Chest pain FINDINGS: An AP, portable, upright chest radiograph is compared to study dated 01/28/2025 and correlated with chest CT dated 08/19/2021. The cardiomediastinal silhouette is unremarkable noting atherosclerotic calcification of the thoracic aorta. The lungs are hyperinflated. Emphysema and chronic interstitial thickening is similar to previous. No airspace consolidation or pleural effusion is identified. Scarlike opacities are seen throughout both lungs. There are scattered calcified granulomas. Tiny pulmonary nodules were better assessed on the prior chest CT scan. No pneumothorax is seen. The skeletal structures are osteopenic. The bony thorax is grossly intact. IMPRESSION: 1. Emphysematous change with no acute cardiopulmonary abnormality identified. 2. Known pulmonary nodules were much better assessed by CT in 2021. If not already performed, nonemergent CT follow-up of these nodules is recommended. ACT 112: Negative or not required by law. Electronically signed by: Denzel Montoya M.D. 02/03/2025 8:41 AM Chest CTA 02/03/25 08:40 CT angio chest PE protocol CT DOSE: 773.41 mGy.cm HISTORY: sob, pna, r/o PE. TECHNIQUE: Multiple CTA images of the chest were obtained after the intravenous administration of 120 ml Optiray. Coronal and sagittal MIPS were obtained from the axial data set and were submitted for review. All measurements were obtained according to NASCET criteria. A dose lowering technique was utilized adhering to the principles of ALARA. COMPARISON STUDY: 08/19/2021. FINDINGS: There are mild to moderate airway secretions. There is severe emphysema. There is a stable 1 cm reticular nodular and groundglass opacity at the left upper lobe series 5 image 201. There is interval 1.1 cm oblong subpleural nodular density lateral right upper lobe image 165. There is a stable 5 mm nodule posterior right lower lobe image 87. No other interval significant pulmonary nodule seen. No pulmonary consolidation or pleural effusion. No pneumothorax. There is interval lobulated hypodense mediastinal mass measuring 4.4 cm AP by 5.8 cm transverse by 5.4 cm craniocaudad mostly below the aortic arch and above the right main pulmonary artery. The mass mildly narrows the right main pulmonary artery. There is a 1.2 cm preaortic anterior mediastinal lymph node series 3 image 90. There is an enlarged subcarinal lymph node measuring 1.7 cm. No pericardial effusion. No thoracic aortic dissection or aneurysm. No pulmonary embolism. There is an interval left adrenal nodule measuring 2.5 cm. No acute osseous finding seen. Impression: 1. No pulmonary embolism seen. 2. Interval malignant-appearing mediastinal mass with nearby mediastinal adenopathy. 3. Interval lateral right upper lobe nonspecific pulmonary nodule. 4. Interval left adrenal nodule, likely metastatic disease. 5. Otherwise as described. ACT 112: Negative or not required by law. The above report was generated using voice recognition software. It may contain grammatical, syntax or spelling errors. Electronically signed by: Rk Jacob M.D. 02/03/2025 10:46 AM Discharge Plan Visit Data Chief Complaint: Shortness of Breath/Dyspnea Stated Complaint: SOB, SORE THROAT ED Provider: Seamus Brooks Discharge Problem: COPD with acute exacerbation, Streptococcus pneumoniae infection, Mediastinal mass, Metastatic disease, Hypomagnesemia, Leukocytosis Patient Disposition: Admitted As Inpatient Condition: Fair Discharge Instructions Interventions: ED Discharge Assessment Last Done: 02/03/25 14:20 Discharge Problem: Metastatic disease Qualifiers: Area of secondary neoplastic involvement: unspecified site Qualified Code(s): C 79.9 - Secondary malignant neoplasm of unspecified site Leukocytosis Qualifiers: Leukocytosis type: unspecified Qualified Code(s): D72.829 - Elevated white blood cell count, unspecified
--- NOTE | 2025-02-03 08:43 | XRay Report ---
SINGLE VIEW CHEST CLINICAL HISTORY: Chest pain FINDINGS: An AP, portable, upright chest radiograph is compared to study dated 01/28/2025 and correla josette with chest CT dated 08/19/2021. The cardiomediastinal silhouette is unremarkable noting atheroscler otic calcification of the thoracic aorta. The lungs are hyperinflated. Emphysema and chronic intersti tial thickening is similar to previous. No airspace consolidation or pleural effusion is identified. Scarlike opacities are seen throughout both lungs. There are scattered calcified granulomas. Tiny pul monary nodules were better assessed on the prior chest CT scan. No pneumothorax is seen. The skeletal structures are osteopenic. The bony thorax is grossly intact. IMPRESSION: 1. Emphysematous change with no acute cardiopulmonary abnormality identified. 2. Known pulmonary nodules were much better assessed by CT in 2021. If not already performed, nonemer gent CT follow-up of these nodules is recommended. ACT 112: Negative or not required by law. Electronically signed by: Denzel Montoya M.D. 02/03/2025 8:41 AM
[2025-02-03] MEDS: SODIUM CHLORIDE 0.9% 1,000 ML IV ONE (08:54)
[2025-02-03] MEDS: guaiFENesin 600 MG TABCR PO STA (08:54)
[2025-02-03] MEDS: ALBUT/IPRATROP 3MG/0.5MG NEB 3 ML VIAL NEB ONE (08:55)
[2025-02-03 09:10] LABS: Alanine Aminotransferase 13 U/L (7-52); Albumin Globulin Ratio 0.8 (0.9-2); Albumin Level 3.2 gm/dl (3.4-5.0); Alkaline Phosphatase 83 U/L (34-104); Anion Gap 8 (3-11); Bilirubin,Total 0.3 mg/dl (0.2-1.0); Blood Urea Nitrogen 8 mg/dl (6-23); Calcium 9.0 mg/dl (8.6-10.3); Carbon Dioxide 29 mmol/L (21-32); Chloride 98 mmol/L (98-107); Globulin 3.8 gm/dl (2.5-4.0); Glucose 88 mg/dl (70-99(Fasting)); Lipase 17 U/L (11-82); Magnesium 1.4 mg/dl (1.7-2.4); Potassium 3.5 mmol/L (3.5-5.1); Sodium 135 mmol/L (136-145); Total Protein 7.0 gm/dl (6.0-8.3)
[2025-02-03 09:20] LABS: INR 1.0 (0.9-1.1); Prothrombin Time 10.9 Seconds (9.0-12.0)
[2025-02-03 09:22] LABS: Hematocrit (blood only) 36.9 % (37.0-47.0); Hemoglobin 12.2 g/dl (12.0-16.0); Immature Granulocytes # (auto) 0.31 K/uL (0.01-0.20); Immature Granulocytes % (auto) 1.0 %; Mean Corpuscular Hemoglobin 28.2 pg (25.0-34.0); Mean Corpuscular Volume 85.2 fL (80.0-100.0); Platelet Count 537 K/uL (130-400); RDW Standard Deviation 38.8 fL (36.4-46.3); Red Blood Count 4.33 M/uL (4.20-5.40); White Blood Count 31.53 K/ul (4.8-10.8)
[2025-02-03 09:51] LABS: Chlamydia pneumoniae PCR Not Detected (NotDetected); Coronavirus 229E PCR Not Detected (NotDetected); Coronavirus CoV-2 (COVID19)PCR Not Detected (NotDetected); Coronavirus HKU1 PCR Not Detected (NotDetected); Coronavirus NL63 PCR Not Detected (NotDetected); Coronavirus OC43PCR Not Detected (NotDetected); Human Metapneumovirus PCR Not Detected (NotDetected); Parainfluenza Virus 1 PCR Not Detected (NotDetected); Parainfluenza Virus 2 PCR Not Detected (NotDetected); Parainfluenza Virus 3 PCR Not Detected (NotDetected); Parainfluenza Virus 4 PCR Not Detected (NotDetected); Respiratory Syncytial VirusPCR Not Detected (NotDetected); Rhinovirus/Enterovirus PCR Not Detected (NotDetected)
[2025-02-03] MEDS: OPTIRAY 320 125ml IV ONE (10:25)
[2025-02-03 10:28] LABS: Appearance Urine Clear (Clear); Bacteria Urine Automated None Seen (None Seen); Cast Urine Automated 0-2 /lpf (0-2); Epithelial Cell Urine Auto 0-2 /hpf (0-2); Glucose Urine UA Negative (Negative); RBC Urine Automated 0-2 /hpf (0-2); WBC Urine Automated 0-5 /hpf (0-5)
--- NOTE | 2025-02-03 10:48 | CT Scan Report ---
CT angio chest PE protocol CT DOSE: 773.41 mGy.cm HISTORY: sob, pna, r/o PE. TECHNIQUE: Multiple CTA images of the chest were obtained after the intravenous administration of 120 ml Optiray. Coronal and sagittal MIPS were obtained from the axial data set and were submitted for review. All measurements were obtained according to NASCET criteria. A dose lowering technique was u tilized adhering to the principles of ALARA. COMPARISON STUDY: 08/19/2021. FINDINGS: There are mild to moderate airway secretions. There is severe emphysema. There is a stable 1 cm reticular nodular and groundglass opacity at the left upper lobe series 5 image 201. There is in terval 1.1 cm oblong subpleural nodular density lateral right upper lobe image 165. There is a stable 5 mm nodule posterior right lower lobe image 87. No other interval significant pulmonary nodule seen . No pulmonary consolidation or pleural effusion. No pneumothorax. There is interval lobulated hypode nse mediastinal mass measuring 4.4 cm AP by 5.8 cm transverse by 5.4 cm craniocaudad mostly below the aortic arch and above the right main pulmonary artery. The mass mildly narrows the right main pulmon elena artery. There is a 1.2 cm preaortic anterior mediastinal lymph node series 3 image 90. There is a n enlarged subcarinal lymph node measuring 1.7 cm. No pericardial effusion. No thoracic aortic dissec tion or aneurysm. No pulmonary embolism. There is an interval left adrenal nodule measuring 2.5 cm. N o acute osseous finding seen. Impression: 1. No pulmonary embolism seen. 2. Interval malignant-appearing mediastinal mass with nearby mediastinal adenopathy. 3. Interval lateral right upper lobe nonspecific pulmonary nodule. 4. Interval left adrenal nodule, likely metastatic disease. 5. Otherwise as described. ACT 112: Negative or not required by law. The above report was generated using voice recognition software. It may contain grammatical, syntax o r spelling errors. Electronically signed by: Rk Jacob M.D. 02/03/2025 10:46 AM
[2025-02-03] MEDS: MAGNESIUM SULFATE / D5W 1 GM/100 ML BAG IV STA (10:51)
[2025-02-03] MEDS: cefTRIAXone SODIUM 2,000 MG/50 ML BAG IV STA (11:38)
[2025-02-03] MEDS ORDERED: cefTRIAXone SODIUM 2,000 MG/50 ML BAG IV SCH (11:45)
--- NOTE | 2025-02-03 11:51 | History & Physical Report ---
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 Patient aware but opting for no intervention at this time #Hypertension Continue metoprolol although discussed possibly better anti-hypertensive as an outpatient which would allow her maintenance inhaler to work better #GERD Switch omeprazole for pantoprazole per hospital formulary VTE Prophylaxis - encourage ambulation Disposition - admit to med/surg Admission and Anticipated Discharge Date Admission Date: February 04, 2025 History of Present Illness Chief Complaint: Shortness of breath Primary Care Provider: Janeth Poole is a 64 year old female who presents to the ER with sore throat, shortness of breath and cough. Symptoms have been ongoing since January 21. She currently smokes. No chest pain. She was seen in the ER on January 28 and diagnosed with bronchitis. 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 Sputum culture grew streptococcus pneumoniae but antibiotics were not changed as per not she was thought to have been taking cefpodoxime at that time. She reports calling up the hospital and being told we should not change antibiotics although there is no mention of this in the notes. Home Medications Medication Instructions Recorded Confirmed Type budesonide-formoterol HFA 160 2 puff inhalation BID 08/19/21 02/03/25 History mcg-4.5 mcg/actuation aerosol inhaler (Symbicort) metoprolol tartrate 50 mg tablet 75 mg PO BID 08/19/21 02/03/25 History omeprazole 40 mg capsule,delayed 40 mg PO DAILY 08/19/21 02/03/25 History release ipratropium 0.5 mg-albuterol 3 mg 3 ml NEB QIDR PRN shortness of 08/21/21 02/03/25 Rx (2.5 mg base)/3 mL nebulization breath, wheezing #180 mL soln albuterol sulfate 90 mcg/actuation 2 puff inhalation UD PRN sob 01/28/25 02/03/25 History aerosol inhaler prednisone 5 mg tablets in a dose See Rx Instructions PO .COMPLEX 01/28/25 02/03/25 Rx pack #48 ea Past Med/Surg History Problem List (Updated 02/04/25 @ 11:37 by Esau Rizzo MD) Streptococcal infection Leukocytosis (Acute) Hypomagnesemia (Acute) Metastatic disease (Acute) Mediastinal mass (Acute) Streptococcus pneumoniae infection (Acute) COPD with acute exacerbation (Acute) Cough productive of clear sputum (Acute) Acute exacerbation of chronic obstructive pulmonary disease (Acute) Upper respiratory infection (Acute) Hypoxia (Acute) Acute exacerbation of chronic obstructive pulmonary disease (Acute) Respiratory arrest (Acute) Marijuana use, continuous Dehydration Hyperglycemia Loss of consciousness for less than 30 minutes Hypomagnesemia Alcohol abuse Tobacco use disorder Hypertension GERD (gastroesophageal reflux disease) COPD (chronic obstructive pulmonary disease) (Acute) Social History Smoking Status: Current every day smoker Tobacco Type: Cigarettes Second Hand Exposure: No; Do You Dip or Chew Tobacco: No; Hx Alcohol Use: Yes Alcohol type: beer Hx Substance Use: No Preferred Language: Japanese Communication Ability: Effective [employer] Required: No Beliefs That Will Affect Care: None Current Living Situation: Family Other Information That Helps Us Care for You: No Feels Safe at Home: Yes Safety Concerns: Feels Safe At This Time Assistive Devices: Denture - Upper and Glasses Review of Systems Review of Systems: All systems reviewed & are unremarkable except as noted in HPI & below Physical Exam Constitutional: WD/WN, vitals as above ENMT: external ear and nose normal, oropharynx normal Respiratory: normal respiratory effort; no respiratory distress Auscultation: + wheezes (mild expiratory); breath sounds present, no diminished lung sounds, no crackles and no rales Cardiovascular: Rate/Rhythm: regular rhythm and + tachycardic Heart Sounds: no murmur Extremities: normal capillary refill; no calf tenderness and no pedal edema Gastrointestinal (Abdomen): normal bowel sounds, soft, nontender, no hepatosplenomegaly Musculoskeletal: no cyanosis or clubbing, extremities motor strength 5/5 Skin: no rashes, warm and dry Neurologic: moves all extremities and awake; not confused Psychiatric: A+Ox3, euthymic affect Results & Data Results & Data Vital Signs (Past 12 Hours) Vital Signs Temp Pulse Pulse Resp BP BP Pulse Ox 02/03/25 10:00 109 H 18 153/99 H 94 02/03/25 08:58 101 H 21 96 02/03/25 08:36 102 H 02/03/25 08:00 103 H 18 96 02/03/25 08:00 103 H 18 158/87 H 96 02/03/25 08:00 96 02/03/25 07:53 37.1 C 101 H 20 155/87 H 95 O2 Del Method FiO2 02/03/25 10:00 Nebulizer 02/03/25 08:58 Room Air 21 02/03/25 08:36 02/03/25 08:00 Room Air 02/03/25 08:00 Room Air 02/03/25 08:00 Room Air 02/03/25 07:53 Laboratory Results Abnormal lab results 02/03/25 02/03/25 Range/Units 08:35 09:55 WBC 31.53 H* (4.8-10.8) K/ul Hct 36.9 L (37.0-47.0) % Plt Count 537 H (130-400) K/uL MPV 8.3 L (9.4-12.4) fL Neut # (Auto) 25.93 H (1.40-6.50) K/uL [place] # (Auto) 2.58 H (0.11-0.59) K/uL Immature Gran # (Auto) 0.31 H (0.01-0.20) K/uL Sodium 135 L (136-145) mmol/L Creatinine 0.47 L (0.6-1.2) mg/dl Magnesium 1.4 L (1.7-2.4) mg/dl AST 11 L (13-39) U/L Albumin 3.2 L (3.4-5.0) gm/dl Albumin/Globulin Ratio 0.8 L (0.9-2) Ur Leukocyte Esterase Trace H (Negative) Diagnostic Findings CT angio chest PE protocol CT DOSE: 773.41 mGy.cm HISTORY: sob, pna, r/o PE. TECHNIQUE: Multiple CTA images of the chest were obtained after the intravenous administration of 120 ml Optiray. Coronal and sagittal MIPS were obtained from the axial data set and were submitted for review. All measurements were obtained according to NASCET criteria. A dose lowering technique was utilized adhering to the principles of ALARA. COMPARISON STUDY: 08/19/2021. FINDINGS: There are mild to moderate airway secretions. There is severe emphysema. There is a stable 1 cm reticular nodular and groundglass opacity at the left upper lobe series 5 image 201. There is interval 1.1 cm oblong subpleural nodular density lateral right upper lobe image 165. There is a stable 5 mm nodule posterior right lower lobe image 87. No other interval significant pulmonary nodule seen. No pulmonary consolidation or pleural effusion. No pneumothorax. There is interval lobulated hypodense mediastinal mass measuring 4.4 cm AP by 5.8 cm transverse by 5.4 cm craniocaudad mostly below the aortic arch and above the right main pulmonary artery. The mass mildly narrows the right main pulmonary artery. There is a 1.2 cm preaortic anterior mediastinal lymph node series 3 image 90. There is an enlarged subcarinal lymph node measuring 1.7 cm. No pericardial effusion. No thoracic aortic dissection or aneurysm. No pulmonary embolism. There is an interval left adrenal nodule measuring 2.5 cm. No acute osseous finding seen. Impression: 1. No pulmonary embolism seen. 2. Interval malignant-appearing mediastinal mass with nearby mediastinal adenopathy. 3. Interval lateral right upper lobe nonspecific pulmonary nodule. 4. Interval left adrenal nodule, likely metastatic disease. 5. Otherwise as described. Medications Administered ER Medications Given: Normal saline 1000ml bolus Solu-Medrol 125mg IV Duoneb 12ml NEB Guaifenesin 1200mg PO Magnesium sulfate 1g IV Ceftriaxone 2000mg IV ECG Rate (beats per minute): 104 Rhythm: sinus tachycardia Findings: no acute ischemic change Comparison ECG Date: from (January 28, 2025) Change: no significant change Code Status & VTE Plan Code Status DNR/DNI VTE Prophylaxis Plan VTE Prophylaxis will be ordered: No PG Care Time/CCT Total # of Minutes Spent Total Time Spent with Patient: Total time spent is greater than 50% in coordination of care (as documented) at patient's floor/unit and/or counseling patient: Coding Level of Care Code 50318 INT INP/OBS CARE 3/75MIN Diagnoses Streptococcal infection A49.1 COPD with acute exacerbation J44.1
[2025-02-03] MEDS: MAGNESIUM SULFATE / D5W 1 GM/100 ML BAG IV SCH (11:59)
[2025-02-03] MEDS ORDERED: ALBUT/IPRATROP 3MG/0.5MG NEB 3 ML VIAL NEB SCH (13:00)
[2025-02-03] MEDS: ALBUT/IPRATROP 3MG/0.5MG NEB 3 ML VIAL NEB SCH (14:50)
[2025-02-03] MEDS ORDERED: COUGH DROP (SUGAR FREE) LOZ 24 LOZ/1 BOX BUCCAL PRN (17:33)
[2025-02-03] MEDS: BUDESONIDE 0.5 MG/2 ML VIAL (PULMICORT) NEB SCH (19:51)
[2025-02-03] MEDS: FORMOTEROL 20 MCG/2 ML VIAL NEB SCH (19:51)
[2025-02-03] MEDS: METOPROLOL TARTRATE 25 MG TAB PO SCH (19:58)
[2025-02-03] MEDS: guaiFENesin 600 MG TABCR PO SCH (19:59)
[2025-02-03] MEDS: MELATONIN 3 MG TAB PO SCH (22:31)
[2025-02-04 07:12] LABS: Hematocrit (blood only) 34.1 % (37.0-47.0); Hemoglobin 11.0 g/dl (12.0-16.0); Mean Corpuscular Hemoglobin 27.7 pg (25.0-34.0); Mean Corpuscular Volume 85.9 fL (80.0-100.0); Platelet Count 593 K/uL (130-400); RDW Standard Deviation 39.7 fL (36.4-46.3); Red Blood Count 3.97 M/uL (4.20-5.40); White Blood Count 37.13 K/ul (4.8-10.8)
[2025-02-04] MEDS: AMOXICILLIN/CLAVULANATE 875 MG TAB PO SCH (07:18)
[2025-02-04 07:31] LABS: Immature Granulocytes # (auto) 0.56 K/uL (0.01-0.20); Immature Granulocytes % (auto) 1.5 %
[2025-02-04 07:34] LABS: Anion Gap 10.0 (3-11); Blood Urea Nitrogen 11.0 mg/dl (6-23); Calcium 9.0 mg/dl (8.6-10.3); Carbon Dioxide 24.0 mmol/L (21-32); Chloride 99.0 mmol/L (98-107); Creatinine Clr Calc Pharmacy 77.8 ml/min; Glucose 117.0 mg/dl (70-99(Fasting)); Magnesium 1.8 mg/dl (1.7-2.4); Potassium 3.2 mmol/L (3.5-5.1); Sodium 133.0 mmol/L (136-145)
[2025-02-04 07:55] VITALS: RESP 16; TEMP 97.9
[2025-02-04 08:51] VITALS: BP 146/81; PULSE 83; O2SAT 95
[2025-02-04] MEDS ORDERED: cefTRIAXone SODIUM 2,000 MG/50 ML BAG IV SCH (11:30)
--- NOTE | 2025-02-04 12:37 | Discharge Summary ---
Discharge Summary Date of Service February 04, 2025 Principal Dx & Hospital Course #1 = Principal Diagnosis (1) Streptococcal infection: (2) COPD with acute exacerbation: [place] Addie Poole is a 64 year old female admitted to [facility] from February 03 to 2024 due to shortness of breath. She was treated with magnesium sulfate 3g and Mg level increased from 1.4 -> 1.8 overnight but as this redistributes likely to fall again and she was advised to start a magnesium supplement. We also treated with a COPD exacerbation with Solu-Medrol and prednisone. She recent had a positive sputum culture for streptococcus pneumonia that was not treated as she was unable to cook pickled meat cefpodoxime therefore was treated for bacterial bronchitis with ceftriaxone / Augmentin (started in hospital due to questionable prior penicillin allergy without any issue). She will continue on Augmentin and a tapering course of prednisone. Since she tolerated Augmentin her allergy to penicillins has been removed off her chart. She was also treated for vaginal candidiasis with fluconazole - repeat a dose prescribed to be taken after 72 hours if continued symptoms. She was also noted to have concerning findings on your CT for lung cancer with possible spread to her adrenal gland. She has not previously wanted further investigations for this and declined further investigation in the hospital. She was advised to stop smoking. We will prescribe a nicotine patch. I suspect a lot of her shortness of breath is anxiety and panic attacks. She previously used hydroxyzine which she finds useful therefore a re-prescription of this was given - recommend also following up with her primary care provider to discuss starting a SSRI to help with your anxiety. Notes For Next Care Provider Routine PCP follow up with repeat CBC due to significant leukocytosis while on steroids Monitor magnesium level Follow up anxiety and stopping smoking Follow up discussion regarding CT findings concerning for lung cancer Medication Changes From Visit Augmentin - to cover sputum culture growing strep Fluconazole - had one dose as inpatient but prescribed in case she needs to repeat in 72 hours Prednisone - taper for COPD exacerbation Nicotine patch - to help stop smoking Admission HPI Per Admitting Provider Addie Poole is a 64 year old female who presents to the ER with sore throat, shortness of breath and cough. Symptoms have been ongoing since January 21. She currently smokes. No chest pain. She was seen in the ER on January 28 and diagnosed with bronchitis. She was discharged home on cefpodoxime and azithromycin although she reports never being able to cook pickled meat cefpodoxime as it needed to be ordered in and was not covered by her insurance. Sputum culture grew streptococcus pneumoniae but antibiotics were not changed as per not she was thought to have been taking cefpodoxime at that time. She reports calling up the hospital and being told we should not change antibiotics although there is no mention of this in the notes. Discharge Exam Constitutional well developed; + not well nourished Respiratory normal respiratory effort; no respiratory distress Auscultation: breath sounds present, no diminished lung sounds, no crackles, no rales and no wheezes Cardiovascular Rate/Rhythm: regular rate and regular rhythm Heart Sounds: no murmur Extremities: normal capillary refill; no calf tenderness and no pedal edema Gastrointestinal (Abdomen) normal bowel sounds, soft, nontender, no hepatosplenomegaly Musculoskeletal no cyanosis or clubbing, extremities motor strength 5/5 Skin no rashes, warm and dry Neurologic moves all extremities and awake; not confused Psychiatric A+Ox3, euthymic affect Discharge Plan Discharge Items Patient Disposition: Home - Self-Care Reason For Visit: COPD EXABERBATION, STREP PNEUMONIA BRONCHITIS Discharge Diagnosis: COPD exacerbation, strep pneumonia bronchitis Condition on Discharge: Fair Activity: Resume your previous activity Non-emergency contact: Primary Care Provider Call non-emergency contact if: you have any medication questions and your symptoms worsen Follow-up/Referrals: Janeth Perdue PA-C [Primary Care Provider] - 02/15/25 10:30 am Diet: Regular Addtl Attending Provider Instructions: You were admitted to [facility] from February 03 to 2024 due to low magnesium and COPD exacerbation. You were treated with magnesium sulfate which probably your level up to 1.8 however this will redistribute into your cells and likely drop again and recommend continued magnesium supplementation for this. We also treated with a COPD exacerbation with strep bronchitis with ceftriaxone / Augmentin and steroids. Please continue on Aug mentin and a tapering course of prednisone. Since you tolerated Augmentin your allergy to penicillins has been removed off your chart. You also treated for vaginal candidiasis with fluconazole - please repeat a dose after 72 hours if you have continued symptoms. You are also noted to have concerning findings on your CT for lung cancer with possible spread to your adrenal gland. Recommend following up with this if you want to undergo further investigations. Please continue to try and cut back on smoking. We will prescribe a nicotine patch. For your anxiety I will re-prescribe you hydroxyzine - recommend also following up with your primary care provider to discuss starting a SSRI to help with your anxiety. Pending Studies at Discharge: No Stand-Alone Forms: [facility], Smoking Cessation Medications and DC Order Prescriptions: New prednisone 10 mg tablet See Rx Instructions .ROUTE .COMPLEX Qty: 12 0RF Rx Instructions: 30 mg daily for 2 days, then 20mg daily for 2 days, then 10mg daily for 2 days fluconazole 150 mg tablet 150 mg PO DAILY PRN (Reason: vaginal candidiasis) Qty: 1 2RF amoxicillin-pot clavulanate 875-125 mg tablet 1 tab PO BID 6 Days Qty: 12 0RF hydroxyzine HCl 25 mg tablet 25 mg PO Q8H PRN (Reason: anxiety) Qty: 90 0RF nicotine 7 mg/24 hr patch 24 hour 1 patch transdermal DAILY Qty: 14 0RF Continued omeprazole 40 mg capsule,delayed release(DR/EC) 40 mg PO DAILY metoprolol tartrate 50 mg tablet 75 mg PO BID budesonide-formoterol [Symbicort] 160-4.5 mcg/actuation HFA aerosol inhaler 2 puff INHALATION BID ipratropium-albuterol 0.5 mg-3 mg(2.5 mg base)/3 mL Solution For Nebulization 3 ml NEB QIDR PRN (Reason: shortness of breath, wheezing) Qty: 180 0RF albuterol sulfate 90 mcg/actuation HFA aerosol inhaler 2 puff INHALATION UD PRN (Reason: sob) Discontinued prednisone 5 mg tablets,dose pack See Rx Instructions .ROUTE .COMPLEX Qty: 48 0RF Rx Instructions: prednisone 5 mg: take 8 tablets (40 mg) on Day 1; 7 tablets (35 mg) on Day 2; then decrease by 1 tablet every day until finished Discharge Orders: Discharge Order (Routine); Ordered 02/04/25 Ordered By: Esau Aaron/Other Patient Handouts: Hydroxyzine Oral Tablet, Prednisone Oral Tablet, Nicotine Transdermal System, Fluconazole Oral Tablet, Amoxicillin/Clavulanate Oral Tablet, Hypomagnesemia Dc Admission Data Admit Date/Time: 02/03/25 11:34 Attending Provider: Esau Rizzo Admit Provider: Esau Rizzo Primary Care Provider: Janeth Perdue Other Providers: Esau Rizzo Other Interventions: Discharge Summary Assessment (RN) Last Done: 02/04/25 13:06 Hospital Stay Data Consultations 02/03/25 11:37 ED Decision to Admit Stat Diagnostic Imagining Performed 02/03/25 08:40 CT angio chest PE protocol Stat Impression: 1. No pulmonary embolism seen. 2. Interval malignant-appearing mediastinal mass with nearby mediastinal adenopathy. 3. Interval lateral right upper lobe nonspecific pulmonary nodule. 4. Interval left adrenal nodule, likely metastatic disease. 5. Otherwise as described. Pending Results Patient Have Any Pending Studies at Discharge: No Discharge Instructions Given to Patient (Per Discharging Provider) You were admitted to [facility] from February 03 to 2024 due to low magnesium and COPD exacerbation. You were treated with magnesium sulfate which probably your level up to 1.8 however this will redistribute into your cells and likely drop again and recommend continued magnesium supplementation for this. We also treated with a COPD exacerbation with strep bronchitis with ceftriaxone / Augmentin and steroids. Please continue on Augmentin and a tapering course of prednisone. Since you tolerated Augmentin your allergy to penicillins has been removed off your chart. You also treated for vaginal candidiasis with fluconazole - please repeat a dose after 72 hours if you have continued symptoms. You are also noted to have concerning findings on your CT for lung cancer with possible spread to your adrenal gland. Recommend following up with this if you want to undergo further investigations. Please continue to try and cut back on smoking. We will prescribe a nicotine patch. For your anxiety I will re-prescribe you hydroxyzine - recommend also following up with your primary care provider to discuss starting a SSRI to help with your anxiety. Total Time Total Time Spent Total Time Spent (In Minutes): 35 Total Time Includes: Examination of the Patient, Discharge Planning and Medication Reconciliation Coding Level of Care Code 56355 INP/OBS DISCH >30 MIN Diagnoses Streptococcal infection A49.1 COPD with acute exacerbation J44.1
[2025-02-04] MEDS: FLUCONAZOLE 50 MG TAB PO STA (12:45)
--- NOTE | 2025-02-07 05:01 | Electrocardiogram Report ---
Test Reason : Blood Pressure : */* mmHG Vent. Rate : 104 BPM Atrial Rate : 104 BPM P-R Int : 140 ms QRS Dur : 70 ms QT Int : 346 ms P-R-T Axes : -12 -10 -18 degrees QTcB Int : 454 ms Sinus tachycardia Otherwise normal ECG When compared with ECG of 28-Jan-2025 08:54, No significant change was found Confirmed by Gregg Lewis ([id number]) on 02/07/2025 5:00:57 AM Referred By: REFERRED SELF Confirmed By: Gregg Lewis
== END 2025-02-04 13:50 | disposition home or self-care (01) ==
LOC: ED 07:52 → EDINP 11:34 → INTOOBSV 11:34 → 3W 14:20

== ENCOUNTER 2025-02-16 11:02 | Observation (INO) ==
--- NOTE | 2025-02-16 11:34 | XRay Report ---
XR chest 1V portable CLINICAL HISTORY: Sepsis COMPARISON STUDY: 02/03/2025 FINDINGS: Stable mild cardiomegaly without pulmonary vascular congestion. Stable emphysema. No consol idation or pleural effusion seen. No pneumothorax. IMPRESSION: No acute findings. ACT 112: Negative or not required by law. Electronically signed by: Rk Jcaob M.D. 02/16/2025 11:33 AM
[2025-02-16 11:55] LABS: Hematocrit (blood only) 36.1 % (37.0-47.0); Hemoglobin 11.7 g/dl (12.0-16.0); Mean Corpuscular Hemoglobin 27.9 pg (25.0-34.0); Mean Corpuscular Volume 86.2 fL (80.0-100.0); Platelet Count 487 K/uL (130-400); RDW Standard Deviation 43.0 fL (36.4-46.3); Red Blood Count 4.19 M/uL (4.20-5.40); White Blood Count 33.77 K/ul (4.8-10.8)
[2025-02-16 11:59] LABS: Alanine Aminotransferase 13.0 U/L (7-52); Albumin Level 3.3 gm/dl (3.4-5.0); Alkaline Phosphatase 126.0 U/L (34-104); Anion Gap 10.0 (3-11); Bilirubin,Total 0.6 mg/dl (0.2-1.0); Blood Urea Nitrogen 8.0 mg/dl (6-23); Calcium 9.3 mg/dl (8.6-10.3); Carbon Dioxide 27.0 mmol/L (21-32); Chloride 98.0 mmol/L (98-107); Creatinine Clr Calc Pharmacy 67.0 ml/min; Glucose 122.0 mg/dl (70-99(Fasting)); Magnesium 1.6 mg/dl (1.7-2.4); Potassium 3.6 mmol/L (3.5-5.1); Sodium 135.0 mmol/L (136-145); Total Protein 7.4 gm/dl (6.0-8.3)
[2025-02-16 12:19] LABS: Immature Granulocytes # (auto) 0.25 K/uL (0.01-0.20); Immature Granulocytes % (auto) 0.7 %; Polychromasia 1+
--- NOTE | 2025-02-16 12:55 | Emergency Department Note ---
Impression & Plan Leukocytosis, Shortness of breath, Tachycardia ED Provider Note NAME: VIVIENNE DON AGE: 64 SEX: F : 1960 ARRIVES VIA: Walk-In INFORMANT: Patient, ED PROVIDER(S): Ines Tse MD CHIEF COMPLAINT: Elevated WBC HPI: The this is a 64-year-old female sent for elevated WBC. Patient was recently here in the hospital and admitted due to bronchitis and COPD. She was discharged on oral amoxicillin and recent started on doxycycline yesterday. She has not taken her steroids today. She repeat blood work by her PCP and noted critical WBC of 29. She states she still has a cough and shortness of breath. She feels that this is somewhat her baseline. She does not feel improved however. She reports stable cough without blood. Still bringing up mucus. She does not wish to talk about or pursue any cancer, palliative treatment for her mediastinal mass. ROS: See above HPI for pertinent positives & negatives. A total of 10 systems reviewed and were otherwise negative. PAST MEDICAL HISTORY: See Below PAST SURGICAL HISTORY: See Below FAMILY HISTORY: See Below SOCIAL HISTORY: See Below HOME MEDICATIONS: See Below ALLERGIES: See Below VITALS: See Below PHYSICAL EXAMINATION: General: Thin, cachectic Head: Normocephalic and atraumatic Eyes: Normal inspection, extraocular muscles intact Ear, nose, throat: Normal external exam Neck: Normal range of motion Respiratory: Tachypneic, no significant wheezing Cardiovascular: Regular rate/rhythm, no murmur GI: soft, nontender, no guarding or rebound Extremities: nontender, moves all extremities Neuro: The patient awake and alert, appropriately conversive, no focal deficits, symmetric faces Skin: Warm, dry, and intact MEDICAL DECISION MAKING: This is a 64-year-old female presenting for elevated WBC. Patient currently tachycardic, tachypneic. Is not hypoxic currently. She refuses any CT imaging or any discussion of this. She states she will does not "her cancer diagnosis or any avenues of treatment including palliative. - Blood work reveals WBC of 33.77. Patient and family self-report critical WBC value 29 yesterday however I do not have records of this. -Patient expresses shortness of breath, continuing and worsening. She request albuterol treatment. She is not wheezing at this time however will order for patient comfort. -Patient declines further testing including CT imaging as previously stated -With an uptrending WBC count, stable tachycardia potentially increasing, do believe patient should be admitted for further workup. After fluid bolus, she has not had improvement in heart rate. -Discussed care with Dr. Rizzo for admission Differential diagnosis: CVA observation, PE, pneumonia, sepsis, lung cancer, mediastinal mass Independent History obtained from: Daughter Diagnostics interpreted by me: ECG: ECG independently interpreted by me with [sinus tachycardia rate of 118, normal DC, normal QRS, normal QTc, no ST segment elevations consistent with STEMI criteria Cardiac Monitoring: An order was placed for continuous cardiac monitoring. The monitor shows a rate of 123 with sinus rhythm. Past Med/Surg History Problem List (Updated 02/16/25 @ 17:57 by Ines Tse MD) Tachycardia (Acute) Shortness of breath (Acute) Leukocytosis (Acute) Streptococcal infection Leukocytosis (Acute) Hypomagnesemia (Acute) Metastatic disease (Acute) Mediastinal mass (Acute) Streptococcus pneumoniae infection (Acute) COPD with acute exacerbation (Acute) Hypoxia (Acute) Acute exacerbation of chronic obstructive pulmonary disease (Acute) Respiratory arrest (Acute) Marijuana use, continuous Dehydration Hyperglycemia Loss of consciousness for less than 30 minutes Hypomagnesemia Alcohol abuse Tobacco use disorder Hypertension GERD (gastroesophageal reflux disease) COPD (chronic obstructive pulmonary disease) (Acute) Social History Smoking Status: Current every day smoker Tobacco Type: Cigarettes Second Hand Exposure: No; Do You Dip or Chew Tobacco: No; Hx Alcohol Use: Yes Alcohol type: beer Hx Substance Use: No Preferred Language: Maori Communication Ability: Effective Sheriffs Officer Required: No Beliefs That Will Affect Care: None Current Living Situation: Family Feels Safe at Home: Yes Assistive Devices: None Home Meds Home Medications Medication Instructions Recorded Confirmed budesonide-formoterol HFA 160 2 puff inhalation BID 08/19/21 02/16/25 mcg-4.5 mcg/actuation aerosol inhaler (Symbicort) metoprolol tartrate 50 mg tablet 75 mg PO BID 08/19/21 02/16/25 omeprazole 40 mg capsule,delayed 40 mg PO DAILY 08/19/21 02/16/25 release albuterol sulfate 90 mcg/actuation 2 puff inhalation UD PRN sob 01/28/25 02/16/25 aerosol inhaler Previous Rx's Medication Instructions Recorded ipratropium 0.5 mg-albuterol 3 mg 3 ml NEB QIDR PRN shortness of 08/21/21 (2.5 mg base)/3 mL nebulization breath, wheezing #180 mL soln fluconazole 150 mg tablet 150 mg PO DAILY PRN vaginal 02/04/25 candidiasis 1 dose #1 tab hydroxyzine HCl 25 mg tablet 25 mg PO Q8H PRN anxiety #90 tabs 02/04/25 nicotine 7 mg/24 hr daily 1 patch transdermal DAILY #14 ea 02/04/25 transdermal patch prednisone 10 mg tablet See Rx Instructions .Route 02/04/25 .COMPLEX #12 tabs Results & Data (ED) Vital Signs Vital Signs - 24 hr 02/16/25 11:05 02/16/25 11:09 02/16/25 11:26 Temperature 36.9 C Temperature Source Temporal Artery Scan Pulse Rate 118 H Pulse Rate [Apical] 117 H Respiratory Rate 24 19 Respiratory Effort / Characteristics Non-Labored Spontaneous Non-Labored Spontaneous Respiratory Depth Normal Normal Respiratory Pattern Regular Regular Blood Pressure 156/74 H Blood Pressure [Right Arm] 154/95 H Blood Pressure Mean 101 Blood Pressure Mean [Right Arm] 114 Blood Pressure Position Lying Pulse Oximetry 93 96 97 Oxygen Delivery Method Room Air Room Air Room Air Sepsis Recent Fever Within 48 Hours No Sepsis New/Unexplained Change in Mental Status No Sepsis Action Taken by Nursing Physician Notified 02/16/25 11:30 02/16/25 11:42 02/16/25 12:00 Temperature Temperature Source Pulse Rate 118 H 118 H 115 H Pulse Rate [Apical] Respiratory Rate 23 27 H Respiratory Effort / Characteristics Respiratory Depth Respiratory Pattern Blood Pressure 160/110 H 122/65 Blood Pressure [Right Arm] Blood Pressure Mean 120 95 Blood Pressure Mean [Right Arm] Blood Pressure Position Pulse Oximetry 97 96 Oxygen Delivery Method Room Air Room Air Sepsis Recent Fever Within 48 Hours Sepsis New/Unexplained Change in Mental Status Sepsis Action Taken by Nursing 02/16/25 12:30 02/16/25 13:00 02/16/25 13:30 Temperature Temperature Source Pulse Rate 115 H 115 H 115 H Pulse Rate [Apical] Respiratory Rate 22 19 19 Respiratory Effort / Characteristics Respiratory Depth Respiratory Pattern Blood Pressure 136/110 H 122/75 141/99 H Blood Pressure [Right Arm] Blood Pressure Mean 118 87 113 Blood Pressure Mean [Right Arm] Blood Pressure Position Pulse Oximetry 97 96 94 Oxygen Delivery Method Room Air Room Air Room Air Sepsis Recent Fever Within 48 Hours Sepsis New/Unexplained Change in Mental Status Sepsis Action Taken by Nursing 02/16/25 14:00 Temperature Temperature Source Pulse Rate 122 H Pulse Rate [Apical] Respiratory Rate 21 Respiratory Effort / Characteristics Respiratory Depth Respiratory Pattern Blood Pressure 154/113 H Blood Pressure [Right Arm] Blood Pressure Mean 130 Blood Pressure Mean [Right Arm] Blood Pressure Position Pulse Oximetry 96 Oxygen Delivery Method Room Air Sepsis Recent Fever Within 48 Hours Sepsis New/Unexplained Change in Mental Status Sepsis Action Taken by Nursing Laboratory Data 02/16/25 11:20 02/16/25 11:20 Lab Results 02/16/25 02/16/25 02/16/25 Range/Units 11:20 12:08 14:17 WBC 33.77 H* (4.8-10.8) K/ul RBC 4.19 L (4.20-5.40) M/uL Hgb 11.7 L (12.0-16.0) g/dl Hct 36.1 L (37.0-47.0) % MCV 86.2 (80.0-100.0) fL MCH 27.9 (25.0-34.0) pg MCHC 32.4 (32.0-36.0) g/dL RDW Std Deviation 43.0 (36.4-46.3) fL RDW Coeff of Hari 13.7 (11.5-14.5) % Plt Count 487 H (130-400) K/uL MPV 8.2 L (9.4-12.4) fL Immature Gran % (Auto) 0.7 % Neut % (Auto) 87.4 % Lymph % (Auto) 5.0 % [place] % (Auto) 6.6 % Eos % (Auto) 0.1 % Baso % (Auto) 0.2 % Neut # (Auto) 29.49 H (1.40-6.50) K/uL Lymph # (Auto) 1.70 (1.20-3.40) K/uL [place] # (Auto) 2.22 H (0.11-0.59) K/uL Eos # (Auto) 0.04 (0.00-0.50) K/uL Baso # (Auto) 0.07 (0.00-0.20) K/uL Immature Gran # (Auto) 0.25 H (0.01-0.20) K/uL Polychromasia 1+ VBG pH (7.36-7.41) Sodium 135 L (136-145) mmol/L Potassium 3.6 (3.5-5.1) mmol/L Chloride 98 (98-107) mmol/L Carbon Dioxide 27 (21-32) mmol/L Anion Gap 10 (3-11) BUN 8 (6-23) mg/dl Creatinine 0.57 L (0.6-1.2) mg/dl Est Cr Clr Drug Dosing 67.0 ml/min eGFR 102.68 BUN/Creatinine Ratio 14.0 (10-20) Glucose 122 H (70-99(Fasting)) mg/dl Lactate 1.8 (0.4-2.0) mmol/L Calcium 9.3 (8.6-10.3) mg/dl Magnesium 1.6 L (1.7-2.4) mg/dl Total Bilirubin 0.6 (0.2-1.0) mg/dl Direct Bilirubin 0.1 (0-0.2) mg/dl AST 10 L (13-39) U/L ALT 13 (7-52) U/L Alkaline Phosphatase 126 H (34-104) U/L Troponin I High Sens 22.9 H (0-14) pg/ml C-Reactive Protein (0-0.5) mg/dl Total Protein 7.4 (6.0-8.3) gm/dl Albumin 3.3 L (3.4-5.0) gm/dl Procalcitonin 0.09 (0-0.5) ng/ml Urine Color Yellow Urine Appearance Clear (Clear) Urine pH 8.5 H (4.5-7.5) Ur Specific [place] 1.014 (1.000-1.030) Urine Protein Negative (Negative) Urine Glucose (UA) Negative (Negative) Urine Ketones Negative (Negative) Urine Blood Negative (Negative) Urine Nitrite Negative (Negative) Urine Bilirubin Negative (Negative) Urine Urobilinogen Negative (Negative) Ur Leukocyte Esterase Trace H (Negative) Urine WBC (Auto) 6-10 H (0-5) /hpf Urine RBC (Auto) 0-2 (0-2) /hpf U Hyaline Cast (Auto) 0-2 (0-2) /lpf U Epithel Cells (Auto) 3-5 H (0-2) /hpf Urine Bacteria (Auto) None Seen (None Seen) Urine Comment 02/16/25 Range/Units 14:39 WBC (4.8-10.8) K/ul RBC (4.20-5.40) M/uL Hgb (12.0-16.0) g/dl Hct (37.0-47.0) % MCV (80.0-100.0) fL MCH (25.0-34.0) pg MCHC (32.0-36.0) g/dL RDW Std Deviation (36.4-46.3) fL RDW Coeff of Hari (11.5-14.5) % Plt Count (130-400) K/uL MPV (9.4-12.4) fL Immature Gran % (Auto) % Neut % (Auto) % Lymph % (Auto) % [place] % (Auto) % Eos % (Auto) % Baso % (Auto) % Neut # (Auto) (1.40-6.50) K/uL Lymph # (Auto) (1.20-3.40) K/uL [place] # (Auto) (0.11-0.59) K/uL Eos # (Auto) (0.00-0.50) K/uL Baso # (Auto) (0.00-0.20) K/uL Immature Gran # (Auto) (0.01-0.20) K/uL Polychromasia VBG pH 7.34 L (7.36-7.41) Sodium (136-145) mmol/L Potassium (3.5-5.1) mmol/L Chloride (98-107) mmol/L Carbon Dioxide (21-32) mmol/L Anion Gap (3-11) BUN (6-23) mg/dl Creatinine (0.6-1.2) mg/dl Est Cr Clr Drug Dosing ml/min eGFR BUN/Creatinine Ratio (10-20) Glucose (70-99(Fasting)) mg/dl Lactate (0.4-2.0) mmol/L Calcium (8.6-10.3) mg/dl Magnesium (1.7-2.4) mg/dl Total Bilirubin (0.2-1.0) mg/dl Direct Bilirubin (0-0.2) mg/dl AST (13-39) U/L ALT (7-52) U/L Alkaline Phosphatase (34-104) U/L Troponin I High Sens 6.3 D (0-14) pg/ml C-Reactive Protein 18.04 H (0-0.5) mg/dl Total Protein (6.0-8.3) gm/dl Albumin (3.4-5.0) gm/dl Procalcitonin (0-0.5) ng/ml Urine Color Urine Appearance (Clear) Urine pH (4.5-7.5) Ur Specific [place] (1.000-1.030) Urine Protein (Negative) Urine Glucose (UA) (Negative) Urine Ketones (Negative) Urine Blood (Negative) Urine Nitrite (Negative) Urine Bilirubin (Negative) Urine Urobilinogen (Negative) Ur Leukocyte Esterase (Negative) Urine WBC (Auto) (0-5) /hpf Urine RBC (Auto) (0-2) /hpf U Hyaline Cast (Auto) (0-2) /lpf U Epithel Cells (Auto) (0-2) /hpf Urine Bacteria (Auto) (None Seen) Urine Comment Administered Medications Albuterol (Albut/Ipratrop 3mg/0.5mg Neb 3 Ml Vial) 3 ml NEB Q2H PRN; Protocol PRN Reason: Shortness of breath / wheezing Stop: 03/18/25 17:02 Last Admin: 02/16/25 17:19 Dose: 3 ml Documented By: LG Magnesium Sulfate/Dextrose (Magnesium Sulfate / D5w) 1 gm in 100 mls @ 50 mls/hr IV Q2H RICKY Stop: 02/16/25 20:59 Last Admin: 02/16/25 17:09 Dose: 45 mls/hr Documented By: MPS Discontinued Medications Albuterol (Albuterol 0.5% Neb Soln 2.5 Mg/0.5 Ml Vial) 2.5 mg NEB NOW STA; Protocol Stop: 02/16/25 13:55 Last Admin: 02/16/25 13:57 Dose: 2.5 mg Documented By: JESSE Sodium Chloride (Nss) 500 mls @ 999 mls/hr IV .Q31M ONE Stop: 02/16/25 13:11 Last Infusion: 02/16/25 14:38 Dose: Infused Documented By: [email or web address] Admin: 02/16/25 13:01 Dose: 999 mls/hr Documented By: PATRICIA Magnesium Sulfate/Dextrose (Magnesium Sulfate / D5w) 1 gm in 100 mls @ 600 mls/hr IV Q10M RICKY Stop: 02/16/25 14:31 Last Infusion: 02/16/25 15:44 Dose: Infused Documented By: MNFord Admin: 02/16/25 15:33 Dose: 600 mls/hr Documented By: Infusion: 02/16/25 15:13 Dose: Infused Documented By: MNFord Admin: 02/16/25 15:02 Dose: 600 mls/hr Documented By: dariusz Methylprednisolone (Methylprednisolone 125 Mg/2 Ml Vial) 40 mg IV NOW STA Stop: 02/16/25 14:52 Last Admin: 02/16/25 15:03 Dose: 40 mg Documented By: dariusz Imaging Data Radiologist's Impression: Chest X-Ray 02/16/25 11:14 XR chest 1V portable CLINICAL HISTORY: Sepsis COMPARISON STUDY: 02/03/2025 FINDINGS: Stable mild cardiomegaly without pulmonary vascular congestion. Stable emphysema. No consolidation or pleural effusion seen. No pneumothorax. IMPRESSION: No acute findings. ACT 112: Negative or not required by law. Electronically signed by: Rk Jacob M.D. 02/16/2025 11:33 AM Discharge Plan Visit Data Chief Complaint: Referred by Doctor Stated Complaint: CRITICAL WHITE BLOOD CELL COUNT ED Provider: Ines Tse Discharge Problem: Leukocytosis, Shortness of breath, Tachycardia Patient Disposition: Admitted As Inpatient Condition: Fair Discharge Instructions Interventions: ED Discharge Assessment Last Done: 02/16/25 16:28
[2025-02-16] MEDS: SODIUM CHLORIDE 0.9% 500 ML IV ONE (13:01)
--- NOTE | 2025-02-16 13:34 | Electrocardiogram Report ---
Test Reason : Blood Pressure : */* mmHG Vent. Rate : 118 BPM Atrial Rate : 118 BPM P-R Int : 128 ms QRS Dur : 70 ms QT Int : 322 ms P-R-T Axes : 74 64 68 degrees QTcB Int : 451 ms Sinus tachycardia Otherwise normal ECG When compared with ECG of 03-Feb-2025 08:20, Nonspecific T wave abnormality no longer evident in Inferior leads Confirmed by Wilfredo Corral ([id number]) on 02/16/2025 1:34:15 PM Referred By: Confirmed By: Wilfredo Corral
[2025-02-16] MEDS: ALBUTEROL 0.5% NEB SOLN 2.5 MG/0.5 ML VIAL NEB STA (13:57)
[2025-02-16 14:33] LABS: Appearance Urine Clear (Clear); Bacteria Urine Automated None Seen (None Seen); Cast Urine Automated 0-2 /lpf (0-2); Glucose Urine UA Negative (Negative); RBC Urine Automated 0-2 /hpf (0-2)
[2025-02-16] MEDS: MAGNESIUM SULFATE / D5W 1 GM/100 ML BAG IV SCH ×2 (15:02→17:09)
--- NOTE | 2025-02-16 16:06 | History & Physical Report ---
Date of Service February 16, 2025 Assessment & Plan (1) Acute exacerbation of chronic obstructive pulmonary disease: (2) Leukocytosis: (3) Tachycardia: (4) Shortness of breath: (5) Hypomagnesemia: (6) Metastatic disease: Plan #COPD exacerbation Likely not resolved/exacerbated after recent illness due to going back to work in [employer] environment and continuing to smoke Solu-Medrol 40mg IV daily, Duoneb q4hwa, doxycycline 100mg PO BID Switch maintenance inhaler to Formoterol/budesonide Nebs BID Sputum culture Previously performed CT angiogram just on without PE at that time therefore despite tachycardia PE remains doubtful at this time Declines pulmonology evaluation #Leukocytosis In setting of steroids, may need further investigation if remains elevated after steroids discontinued #Tobacco use disorder Continue to encourage cessation Declines nicotine patch #Hypomagnesemia Total Mg sulfate 4g IV (2g given in ER over 20 minutes for COPD exacerbation), repeat level with AM labs #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 Patient aware but opting for no intervention at this time #Hypertension Discussed switching to diltiazem to allow albuterol to work better which she is agreeable this admission #GERD Switch omeprazole for pantoprazole per hospital formulary VTE Prophylaxis - Lovenox Disposition - observation to med/surg Admission and Anticipated Discharge Date Admission Date: February 16, 2025 History of Present Illness Chief Complaint: Shortness of breath Primary Care Provider: Janeth Nette Poole is a 64 year old female with COPD and tobacco use disorder who presents to the ER with shortness of breath. She was recently observed overnight from February 03-2024 with COPD exacerbation and recovered overnight. She was sent home with a steroid taper but reports never getting back to baseline. 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 She has also continued to smoke but less than 5 a day. She has not needed the hydroxyzine and only taken a couple. After finishing the steroid taper per outside notes she started taking prednisone she had left over and then was prescribed another course with doxycycline yesterday. She is using her maintenance inhaler and regular duonebs but feels she is not improving. Increasing sputum cough but no fever or chills. Home Medications Medication Instructions Recorded Confirmed Type budesonide-formoterol HFA 160 2 puff inhalation BID 08/19/21 02/16/25 History mcg-4.5 mcg/actuation aerosol inhaler (Symbicort) metoprolol tartrate 50 mg tablet 75 mg PO BID 08/19/21 02/16/25 History omeprazole 40 mg capsule,delayed 40 mg PO DAILY 08/19/21 02/16/25 History release ipratropium 0.5 mg-albuterol 3 mg 3 ml NEB QIDR PRN shortness of 08/21/21 02/16/25 Rx (2.5 mg base)/3 mL nebulization breath, wheezing #180 mL soln albuterol sulfate 90 mcg/actuation 2 puff inhalation UD PRN sob 01/28/25 02/16/25 History aerosol inhaler fluconazole 150 mg tablet 150 mg PO DAILY PRN vaginal 02/04/25 02/16/25 Rx candidiasis 1 dose #1 tab hydroxyzine HCl 25 mg tablet 25 mg PO Q8H PRN anxiety #90 tabs 02/04/25 02/16/25 Rx nicotine 7 mg/24 hr daily 1 patch transdermal DAILY #14 ea 02/04/25 02/16/25 Rx transdermal patch prednisone 10 mg tablet See Rx Instructions .Route 02/04/25 02/16/25 Rx .COMPLEX #12 tabs Past Med/Surg History Problem List (Updated 02/16/25 @ 17:57 by Ines Tse MD) Tachycardia (Acute) Shortness of breath (Acute) Leukocytosis (Acute) Streptococcal infection Leukocytosis (Acute) Hypomagnesemia (Acute) Metastatic disease (Acute) Mediastinal mass (Acute) Streptococcus pneumoniae infection (Acute) COPD with acute exacerbation (Acute) Hypoxia (Acute) Acute exacerbation of chronic obstructive pulmonary disease (Acute) Respiratory arrest (Acute) Marijuana use, continuous Dehydration Hyperglycemia Loss of consciousness for less than 30 minutes Hypomagnesemia Alcohol abuse Tobacco use disorder Hypertension GERD (gastroesophageal reflux disease) COPD (chronic obstructive pulmonary disease) (Acute) Social History Smoking Status: Current every day smoker Tobacco Type: Cigarettes Cigarettes Per Day: 5 cigarettes per day; Second Hand Exposure: No; Do You Dip or Chew Tobacco: No; Tobacco Cessation Education Requested by Patient: No Hx Alcohol Use: No Hx Substance Use: No Preferred Language: Tanzanian Communication Ability: Effective Zinc Plate Grainer Required: No Beliefs That Will Affect Care: None Current Living Situation: Family Current Living Situation Comment: Lives with daughter Other Information That Helps Us Care for You: No Feels Safe at Home: Yes Safety Concerns: Feels Safe At This Time Assistive Devices: Denture - Upper and Glasses Review of Systems Review of Systems: All systems reviewed & are unremarkable except as noted in HPI & below Physical Exam Constitutional: well developed and + acute distress (respiratory); + not well nourished Respiratory: + labored breathing, + uses accessory mu scles, able to speak in complete sentences and + prolonged expiratory phase; no stridor Auscultation: + diminished lung sounds (throughout) and + wheezes (expiratory); no crackles and no rales Cardiovascular: Rate/Rhythm: regular rhythm and + tachycardic Heart Sounds: no murmur Extremities: normal capillary refill; no calf tenderness and no pedal edema Gastrointestinal (Abdomen): normal bowel sounds, soft, nontender, no hepatosplenomegaly Skin: no rashes, warm and dry Psychiatric: A+Ox3, euthymic affect Results & Data Results & Data Vital Signs (Past 12 Hours) Vital Signs Temp Pulse Pulse Resp BP BP Pulse Ox 02/16/25 16:00 120 H 22 143/89 H 94 02/16/25 15:30 125 H 19 160/92 H 93 02/16/25 15:28 127 H 02/16/25 15:09 128 H 21 94 02/16/25 15:06 156/110 H 02/16/25 14:00 122 H 21 154/113 H 96 02/16/25 13:30 115 H 19 141/99 H 94 02/16/25 13:00 115 H 19 122/75 96 02/16/25 12:30 115 H 22 136/110 H 97 02/16/25 12:00 115 H 27 H 122/65 96 02/16/25 11:42 118 H 02/16/25 11:30 118 H 23 160/110 H 97 02/16/25 11:26 97 02/16/25 11:09 117 H 19 154/95 H 96 02/16/25 11:05 36.9 C 118 H 24 156/74 H 93 O2 Del Method 02/16/25 16:00 02/16/25 15:30 02/16/25 15:28 02/16/25 15:09 02/16/25 15:06 02/16/25 14:00 Room Air 02/16/25 13:30 Room Air 02/16/25 13:00 Room Air 02/16/25 12:30 Room Air 02/16/25 12:00 Room Air 02/16/25 11:42 02/16/25 11:30 Room Air 02/16/25 11:26 Room Air 02/16/25 11:09 Room Air 02/16/25 11:05 Room Air Laboratory Results Abnormal lab results 02/16/25 02/16/25 02/16/25 Range/Units 11:20 14:17 14:39 WBC 33.77 H* (4.8-10.8) K/ul RBC 4.19 L (4.20-5.40) M/uL Hgb 11.7 L (12.0-16.0) g/dl Hct 36.1 L (37.0-47.0) % Plt Count 487 H (130-400) K/uL MPV 8.2 L (9.4-12.4) fL Neut # (Auto) 29.49 H (1.40-6.50) K/uL [place] # (Auto) 2.22 H (0.11-0.59) K/uL Immature Gran # (Auto) 0.25 H (0.01-0.20) K/uL VBG pH 7.34 L (7.36-7.41) Sodium 135 L (136-145) mmol/L Creatinine 0.57 L (0.6-1.2) mg/dl Glucose 122 H (70-99(Fasting)) mg/dl Magnesium 1.6 L (1.7-2.4) mg/dl AST 10 L (13-39) U/L Alkaline Phosphatase 126 H (34-104) U/L Troponin I High Sens 22.9 H (0-14) pg/ml C-Reactive Protein 18.04 H (0-0.5) mg/dl Albumin 3.3 L (3.4-5.0) gm/dl Urine pH 8.5 H (4.5-7.5) Ur Leukocyte Esterase Trace H (Negative) Urine WBC (Auto) 6-10 H (0-5) /hpf U Epithel Cells (Auto) 3-5 H (0-2) /hpf Diagnostic Findings XR chest 1V portable CLINICAL HISTORY: Sepsis COMPARISON STUDY: 02/03/2025 FINDINGS: Stable mild cardiomegaly without pulmonary vascular congestion. Stable emphysema. No consolidation or pleural effusion seen. No pneumothorax. IMPRESSION: No acute findings. Medications Administered ER Medications Given: Duoneb ECG Rate (beats per minute): 118 Rhythm: sinus tachycardia Findings: no acute ischemic change Comparison ECG Date: from (February 03, 2025) Change: no significant change Code Status & VTE Plan Code Status DNR/DNI VTE Prophylaxis Plan VTE Prophylaxis will be ordered: Yes PG Care Time/CCT Total # of Minutes Spent Total Time Spent with Patient: Total time spent is greater than 50% in coordination of care (as documented) at patient's floor/unit and/or counseling patient: Coding Level of Care Code 49561 INT INP/OBS CARE 3/75MIN Diagnoses Acute exacerbation of chronic obstructive pulmonary disease J44.1 Leukocytosis D72.829 Tachycardia R00.0 Shortness of breath R06.02 Hypomagnesemia E83.42 Metastatic disease C79.9 Area of secondary neoplastic involvement: unspecified site (6) Metastatic disease Area of secondary neoplastic involvement: unspecified site Qualified Code(s): C79.9 - Secondary malignant neoplasm of unspecified site
[2025-02-16] MEDS: ALBUT/IPRATROP 3MG/0.5MG NEB 3 ML VIAL NEB PRN (17:19)
[2025-02-16] MEDS: ACETAMINOPHEN 325 MG TAB PO PRN (18:17)
[2025-02-16] MEDS: BUDESONIDE 0.5 MG/2 ML VIAL (PULMICORT) NEB SCH (19:59)
[2025-02-16] MEDS: FORMOTEROL 20 MCG/2 ML VIAL NEB SCH (19:59)
[2025-02-16] MEDS: ALBUT/IPRATROP 3MG/0.5MG NEB 3 ML VIAL NEB SCH (20:00)
[2025-02-16] MEDS: guaiFENesin 600 MG TABCR PO SCH (20:33)
[2025-02-16] MEDS: ENOXAPARIN INJ 40 MG/0.4 ML SYR SQ SCH (20:33)
[2025-02-17] MEDS: DOXYCYCLINE HYCLATE 100 MG CAP PO SCH (08:00)
[2025-02-17 08:10] LABS: Base Excess VBG 2.7 mEq/L; HCO3 VBG 28 mmol/L; Oxygen Saturation VBG < 60.0 %; PCO2 VBG 44 mmHg (38-50); PO2 VBG 25 mmHg; pH VBG 7.41 (7.36-7.41)
[2025-02-17 08:24] LABS: Hematocrit (blood only) 34.0 % (37.0-47.0); Hemoglobin 11.0 g/dl (12.0-16.0); Mean Corpuscular Hemoglobin 27.9 pg (25.0-34.0); Mean Corpuscular Volume 86.3 fL (80.0-100.0); Platelet Count 467 K/uL (130-400); RDW Standard Deviation 42.3 fL (36.4-46.3); Red Blood Count 3.94 M/uL (4.20-5.40); White Blood Count 35.81 K/ul (4.8-10.8)
[2025-02-17 08:45] LABS: Anion Gap 11.0 (3-11); Blood Urea Nitrogen 12.0 mg/dl (6-23); Calcium 9.1 mg/dl (8.6-10.3); Carbon Dioxide 26.0 mmol/L (21-32); Chloride 98.0 mmol/L (98-107); Creatinine Clr Calc Pharmacy 63.4 ml/min; Glucose 133.0 mg/dl (70-99(Fasting)); Magnesium 2.2 mg/dl (1.7-2.4); Potassium 3.5 mmol/L (3.5-5.1); Sodium 135.0 mmol/L (136-145)
--- NOTE | 2025-02-17 11:06 | Hospitalist Progress Note ---
Date of Service February 17, 2025 Assessment & Plan (1) Acute exacerbation of chronic obstructive pulmonary disease: (2) Leukocytosis: (3) Tachycardia: (4) Shortness of breath: (5) Hypomagnesemia: (6) Metastatic disease: Plan #COPD exacerbation Likely not resolved/exacerbated after recent illness due to going back to work in [employer] environment and continuing to smoke Solu-Medrol 40mg IV daily, Duoneb q4hwa, doxycycline 100mg PO BID Added guaifenesin, flutter valve, incentive spirometer Switch Symbicort to Formoterol/budesonide Nebs BID, add Incruse Ellipta which should be continued on discharge Sputum culture - light normal zechariah, final report pending Previously performed CT angiogram just on without PE at that time therefore despite tachycardia PE remains doubtful at this time Discussed pulmonology evaluation again today and more amenable to this for optimization of COPD therapy but does not wish to discuss lung mass #Leukocytosis In setting of steroids, may need further investigation if remains elevated after steroids discontinued #Tobacco use disorder Continue to encourage cessation Declines nicotine patch #Hypomagnesemia Total Mg sulfate 4g IV (2g given in ER over 20 minutes for COPD exacerbation), repeat level 2.2 Continue oral supplementation Mg oxide 400mg PO daily, repeat level with AM labs #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 Patient aware but opting for no intervention consistently #Hypertension Switched metoprolol for diltiazem - will increase to 60mg QID, likely switch to ER tomorrow #GERD Switch omeprazole for pantoprazole per hospital formulary VTE Prophylaxis - Lovenox Disposition - continue observation to med/surg, at risk of coming back to hospital with home environment and continuing to smoke Admission and Anticipated Discharge Date Admission Date: February 16, 2025 Subjective Improved but does not feel ready to go back home yet given readmission from earlier in the month and home smoking environment Physical Exam Constitutional: well developed; + not well nourished and no acute distress Respiratory: normal respiratory effort; no respiratory distress Auscultation: + diminished lung sounds (throughout); no wheezes Cardiovascular: Rate/Rhythm: regular rhythm and + tachycardic Heart Sounds: no murmur Results & Data Results & Data Vital Signs (Past 12 Hours) Vital Signs Temp Pulse Resp BP Pulse Ox O2 Del Method 02/17/25 10:50 112 H 20 96 Room Air 02/17/25 07:50 Room Air 02/17/25 07:21 36.5 C 109 H 20 133/81 100 Nebulizer 02/17/25 07:07 110 H 20 96 Room Air 02/17/25 04:24 111 H 24 96 Room Air PG Care Time/CCT Total # of Minutes Spent Total Time Spent with Patient: Total time spent is greater than 50% in coordination of care (as documented) at patient's floor/unit and/or counseling patient: Coding Level of Care Code 43020 SUB INP/OBS CARE 235MIN Diagnoses Acute exacerbation of chronic obstructive pulmonary disease J44.1 Leukocytosis D72.829 Tachycardia R00.0 Shortness of breath R06.02 Hypomagnesemia E83.42 Metastatic disease C79.9 Area of secondary neoplastic involvement: unspecified site (6) Metastatic disease Area of secondary neoplastic involvement: unspecified site Qualified Code(s): C79.9 - Secondary malignant neoplasm of unspecified site
--- NOTE | 2025-02-17 11:20 | Pulmonary Consultation ---
Date of Consultation February 17, 2025 Assessment & Plan (1) Shortness of breath: * Chronic * COPD * Patient has difficulty with inhalers that require active inhalation and prefers puffers. Has difficulty affording some inhalers. * Consider arranging for nebulized bronchodilators and steroids if covered by insurance (2) Pulmonary nodule: * Spiculated and highly likely malignant * Patient declines work-up (3) Mediastinal mass: * highly likely malignant * Patient declines work-up (4) Leukocytosis: * Reason for referral to the hospital * Possibly related to suspected malignant lung nodule and mediastinal mass and suspected adrenal metastasis * Possible leukemia associated with mediastinal mass * Patient declines workup Leukocytosis type: unspecified Qualified Code(s): D72.829 - Elevated white blood cell count, unspecified (5) COPD (chronic obstructive pulmonary disease): COPD type: unspecified COPD Qualified Code(s): J44.9 - Chronic obstructive pulmonary disease, unspecified History of Present Illness Reason for Consultation: COPD optimization Requesting Physician: Dr. Esau Rizzo Attending Physician: Esau Rizzo MD History of Present Illness The patient is a very pleasant 64-year-old female who presented to the ED for evaluation of an elevated WBC. She had recently been hospitalized for bronchitis and COPD, and was discharged on oral amoxicillin, with doxycycline started the day prior to this presentation. She had not taken her steroids on the day of presentation to the ED. Repeat blood work by her PCP revealed a critically elevated WBC of 29. She reported ongoing cough and shortness of breath, which she felt was somewhat at her baseline, though she did not feel improved. Her cough remained stable without hemoptysis, and she continued to expectorate mucus. Review of systems was otherwise negative across 10 systems, aside from the symptoms detailed above. Her leukocytosis was thought to be related to steroid use, with plans for further investigation if it persisted after discontinuation. She continued to smoke and declined nicotine replacement therapy. 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 Her past medical history included COPD, tobacco use disorder, hypertension, GERD, and suspected metastatic disease (mediastinal mass with possible adrenal involvement). The patient reports dyspnea on minimal exertion, but denies chest pain or significant problems with cough or sputum production. Home Medications Medication Instructions Recorded Confirmed Type budesonide-formoterol HFA 160 2 puff inhalation BID 08/19/21 02/16/25 History mcg-4.5 mcg/actuation aerosol inhaler (Symbicort) omeprazole 40 mg capsule,delayed 40 mg PO DAILY 08/19/21 02/16/25 History release ipratropium 0.5 mg-albuterol 3 mg 3 ml NEB QIDR PRN shortness of 08/21/21 02/16/25 Rx (2.5 mg base)/3 mL nebulization breath, wheezing #180 mL soln albuterol sulfate 90 mcg/actuation 2 puff inhalation UD PRN sob 01/28/25 02/16/25 History aerosol inhaler fluconazole 150 mg tablet 150 mg PO DAILY PRN vaginal 02/04/25 02/16/25 Rx candidiasis 1 dose #1 tab hydroxyzine HCl 25 mg tablet 25 mg PO Q8H PRN anxiety #90 tabs 02/04/25 02/16/25 Rx nicotine 7 mg/24 hr daily 1 patch transdermal DAILY #14 ea 02/04/25 02/16/25 Rx transdermal patch diltiazem HCl 240 mg 240 mg PO DAILY #30 caps 02/18/25 Rx capsule,extended release 24 hr doxycycline hyclate 100 mg capsule 100 mg PO BID 5 days #10 caps 02/18/25 Rx prednisone 10 mg tablet See Rx Instructions .Route 02/18/25 Rx .COMPLEX #30 tabs umeclidinium 62.5 mcg/actuation 1 inh inhalation DAILY #30 ea 02/18/25 Rx blister powder for inhalation (Incruse Ellipta) Patient History Social History Smoking Status: Current every day smoker Tobacco Type: Cigarettes Cigarettes Per Day: 5 cigarettes per day; Second Hand Exposure: No; Do You Dip or Chew Tobacco: No; Hx Alcohol Use: No Hx Substance Use: No Preferred Language: Slovenian Communication Ability: Effective [place] [employer] Required: No Beliefs That Will Affect Care: None Current Living Situation: Family Current Living Situation Comment: Lives with daughter Feels Safe at Home: Yes Assistive Devices: Nebulizer Review of Systems Review of Systems: All systems reviewed & are unremarkable except as noted in HPI & below Physical Exam Physical Exam: General: In no acute distress, on room-air. Skin: Warm and dry to touch. Noobvious lesions. Eyes: Anicteric.Noconjunctival hyperemia or exudates.No periorbital edema. ENT: No oral thrush. No oropharyngeal erythema or exudates. Neck: No palpable masses or adenopathy. Respiratory: Diffusely decreased breath sounds, no wheezing or crackles. No use of accessory muscles and no prolonged exhalation. Cardiac: Distant sounds, regular rhythm, no murmurs, no gallops, no rubs; could not appreciate JV pulse elevation. GI: Soft, nontender. Extremities: Moderate clubbing,no cyanosis,no edema. Neuro: No gross motor deficits. Seems appropriate. No facial-droop. Speech is clear. Results & Data Results & Data Vital Signs (Past 12 Hours) Vital Signs Temp Pulse Resp BP Pulse Ox O2 Del Method 02/17/25 10:50 112 H 20 96 Room Air 02/17/25 07:50 Room Air 02/17/25 07:21 36.5 C 109 H 20 133/81 100 Nebulizer 02/17/25 07:07 110 H 20 96 Room Air 02/17/25 04:24 111 H 24 96 Room Air Diagnostic Findings XR chest 1V portable COMPARISON STUDY: 02/03/2025 FINDINGS: Stable mild cardiomegaly without pulmonary vascular congestion. Stable emphysema. No consolidation or pleural effusion seen. No pneumothorax. IMPRESSION: No acute findings. ACT 112: Negative or not required by law. Electronically signed by: Rk Jacob M.D. 02/16/2025 11:[address] angio chest PE protocol COMPARISON STUDY: 08/19/2021. FINDINGS: There are mild to moderate airway secretions. There is severe emphysema. There is a stable 1 cm reticular nodular and groundglass opacity at the left upper lobe series 5 image 201. There is interval 1.1 cm oblong subpleural nodular density lateral right upper lobe image 165. There is a stable 5 mm nodule posterior right lower lobe image 87. No other interval significant pulmonary nodule seen. No pulmonary consolidation or pleural effusion. No pneumothorax. There is interval lobulated hypodense mediastinal mass measuring 4.4 cm AP by 5.8 cm transverse by 5.4 cm craniocaudad mostly below the aortic arch and above the right main pulmonary artery. The mass mildly narrows the right main pulmonary artery. There is a 1.2 cm preaortic anterior mediastinal lymph node series 3 image 90. There is an enlarged subcarinal lymph node measuring 1.7 cm. No pericardial effusion. No thoracic aortic dissection or aneurysm. No pulmonary embolism. There is an interval left adrenal nodule measuring 2.5 cm. No acute osseous finding seen. Impression: 1. No pulmonary embolism seen. 2. Interval malignant-appearing mediastinal mass with nearby mediastinal adenopathy. 3. Interval lateral right upper lobe nonspecific pulmonary nodule. 4. Interval left adrenal nodule, likely metastatic disease. 5. Otherwise as described. Electronically signed by: Rk Jacob M.D. PG Care Time/CCT Total # of Minutes Spent Total Time Spent with Patient: Total time spent is greater than 50% in coordination of care (as documented) at patient's floor/unit and/or counseling patient: Coding Level of Care Code 39232 IN/OBS CONSULT LVL 3,45M Diagnoses Shortness of breath R06.02 Pulmonary nodule R91.1 Mediastinal mass J98.59 Leukocytosis D72.829 Leukocytosis type: unspecified COPD (chronic obstructive pulmonary disease) J44.9 COPD type: unspecified COPD Time Spent (min) 50
[2025-02-17] MEDS: MAGNESIUM OXIDE 400 MG TAB PO SCH (11:44)
[2025-02-17] MEDS: UMECLIDINIUM BROMIDE 62.5MCG/BLISTER 7 PUFFS/INHALER INH SCH (11:44)
[2025-02-18] MEDS: MELATONIN 3 MG TAB PO PRN (01:44)
[2025-02-18] MEDS: POTASSIUM CHLORIDE CRTAB 20 MEQ TABCR PO STA (01:44)
[2025-02-18 08:30] VITALS: TEMP 97.9
[2025-02-18 12:40] VITALS: BP 147/78
[2025-02-18 14:19] VITALS: PULSE 90; RESP 18; O2SAT 96
--- NOTE | 2025-02-18 16:02 | Discharge Summary ---
Discharge Summary Date of Service February 18, 2025 Principal Dx & Hospital Course #1 = Principal Diagnosis (1) Acute exacerbation of chronic obstructive pulmonary disease: (2) Leukocytosis: (3) Tachycardia: (4) Shortness of breath: (5) Hypomagnesemia: (6) Metastatic disease: Plan You were observed at to [facility] from February 16 to 2024 due to shortness of breath. You were diagnosed with COPD exacerbation likely as a result of notes completely recovering from your previous exacerbation due to continued smoking and working at the [employer]. COPD exacerbation was treated with intravenous steroids, DuoNebs, magnesium sulfate, doxycycline. You continue to improve and are now medically stable for discharge but highly recommend not returning to work until cleared by your primary care provider and highly recommend not smoking. To help make albuterol more effective you were switched from metoprolol to tartrate to diltiazem. A long-acting muscarinic antagonist Incruse Ellipta was added to your usual Symbicort to help prevent further exacerbations. Please follow-up with pulmonology for ongoing management on discharge. Echocardiogram was requested by pulmonology which is pending at discharge but you will be called with these results. Admission HPI Per Admitting Provider Addie Poole is a 64 year old female with COPD and tobacco use disorder who presents to the ER with shortness of breath. She was recently observed overnight from February 03-2024 with COPD exacerbation and recovered overnight. She was sent home with a steroid taper but reports never getting back to baseline. Despite this she went back to work in a [employer] on February 07. She has also continued to smoke but less than 5 a day. She has not needed the hydroxyzine and only taken a couple. After finishing the steroid taper per outside notes she started taking prednisone she had left over and then was prescribed another course with doxycycline yesterday. She is using her maintenance inhaler and regular duonebs but feels she is not improving. Increasing sputum cough but no fever or chills. Discharge Plan Discharge Items Patient Disposition: Home - Self-Care Reason For Visit: COPD EXACERBATION Discharge Diagnosis: COPD exacerbation Condition on Discharge: Fair Activity: Resume your previous activity Non-emergency contact: Primary Care Provider Call non-emergency contact if: you have any medication questions and your symptoms worsen Follow-up/Referrals: Alan Bonilla MD [Physician] - 02/21/25 8:45 am (Follow up COPD exacerbation) Janeth Perdue PA-C [Primary Care Provider] - Diet: Regular Addtl Attending Provider Instructions: You were observed at to [facility] from February 16 to 2024 due to shortness of breath. You were diagnosed with COPD exacerbation likely as a result of notes completely recovering from your previous exacerbation due to c ontinued smoking and working at the [employer]. COPD exacerbation was treated with intravenous steroids, DuoNebs, magnesium sulfate, doxycycline. You continue to improve and are now medically stable for discharge but highly recommend not returning to work until cleared by your primary care provider and highly recommend not smoking. To help make albuterol more effective you were switched from metoprolol to tartrate to diltiazem. A long-acting muscarinic antagonist Incruse Ellipta was added to your usual Symbicort to help prevent further exacerbations. Please follow-up with pulmonology for ongoing management on discharge. Echocardiogram was requested by pulmonology which is pending at discharge but you will be called with these results. Pending Studies at Discharge: No Stand-Alone Forms: [facility], Work/School Release, Smoking Cessation Medications and DC Order Prescriptions: New diltiazem HCl 240 mg capsule,extended release 24hr 240 mg PO DAILY Qty: 30 0RF doxycycline hyclate 100 mg Capsule 100 mg PO BID 5 Days Qty: 10 0RF Incruse Ellipta 62.5 mcg/actuation Blister With Device 1 inh inhalation DAILY Qty: 30 0RF prednisone 10 mg tablet See Rx Instructions .ROUTE .COMPLEX Qty: 30 0RF Rx Instructions: 40mg daily for 3 days, 30mg daily for 3 days, 20mg daily for 3 days, 10mg daily for 3 days Continued omeprazole 40 mg capsule,delayed release(DR/EC) 40 mg PO DAILY budesonide-formoterol [Symbicort] 160-4.5 mcg/actuation HFA aerosol inhaler 2 puff INHALATION BID ipratropium-albuterol 0.5 mg-3 mg(2.5 mg base)/3 mL Solution For Nebulization 3 ml NEB QIDR PRN (Reason: shortness of breath, wheezing) Qty: 180 0RF fluconazole 150 mg tablet 150 mg PO DAILY PRN (Reason: vaginal candidiasis) Qty: 1 2RF hydroxyzine HCl 25 mg tablet 25 mg PO Q8H PRN (Reason: anxiety) Qty: 90 0RF nicotine 7 mg/24 hr patch 24 hour 1 patch transdermal DAILY Qty: 14 0RF albuterol sulfate 90 mcg/actuation HFA aerosol inhaler 2 puff INHALATION UD PRN (Reason: sob) Discontinued metoprolol tartrate 50 mg tablet 75 mg PO BID prednisone 10 mg tablet See Rx Instructions .ROUTE .COMPLEX Qty: 12 0RF Rx Instructions: 30 mg daily for 2 days, then 20mg daily for 2 days, then 10mg daily for 2 days Discharge Orders: Discharge Order (Routine); Ordered 02/18/25 Ordered By: Esau Rizzo Admission Data Admit Date/Time: 02/16/25 15:04 Attending Provider: Esau Rizzo Admit Provider: Esau Rizzo Primary Care Provider: Janeth Perdue Other Providers: Esau Rizzo; Lai Toure Other Interventions: Discharge Summary Assessment (RN) Last Done: 02/18/25 15:32 Hospital Stay Data Consultations 02/16/25 14:23 ED Decision to Admit Stat 02/17/25 10:56 Consult Pulmonology Routine Pending Results Patient Have Any Pending Studies at Discharge: No Discharge Instructions Given to Patient (Per Discharging Provider) You were observed at to [facility] from February 16 to 2024 due to shortness of breath. You were diagnosed with COPD exacerbation likely as a result of notes completely recovering from your previous exacerbation due to continued smoking and working at the [employer]. COPD exacerbation was treated with intravenous steroids, DuoNebs, magnesium sulfate, doxycycline. You continue to improve and are now medically stable for discharge but highly recommend not returning to work until cleared by your primary care provider and highly recommend not smoking. To help make albuterol more effective you were switched from metoprolol to tartrate to diltiazem. A long-acting muscarinic antagonist Incruse Ellipta was added to your usual Symbicort to help prevent further exacerbations. Please follow-up with pulmonology for ongoing management on discharge. Echocardiogram was requested by pulmonology which is pending at discharge but you will be called with these results. Coding Diagnoses Acute exacerbation of chronic obstructive pulmonary disease J44.1 Leukocytosis D72.829 Tachycardia R00.0 Shortness of breath R06.02 Hypomagnesemia E83.42 Metastatic disease C79.9 Area of secondary neoplastic involvement: unspecified site
--- NOTE | 2025-02-18 20:46 | XCELERA ---
[id number]
== END 2025-02-18 16:26 | disposition home or self-care (01) ==
LOC: ED 11:02 → 3E 11:02